=== PATIENT | female | born 1935 | race African-American/Black ===

== ENCOUNTER 2017-11-16 02:24 | Inpatient (IN) | payer MEDICARE, OTHER ==
[2017-11-16 03:15] LABS: ADD MAN DIFF? NO
[2017-11-16 03:18] LABS: BASO # 0.1 x10^3/uL (0.0-0.2); BASO % 1 % (0-3); EOS # 0.2 x10^3/uL (0.0-0.7); EOS % 2 % (0-3); HEMATOCRIT 51.2 % (36.0-47.0); LYMPH # 3.8 x10^3/uL (1.0-4.8); LYMPH % 32 % (24-48); MEAN CORPUSCULAR HEMOGLOBIN 29 pg (25-35); MEAN CORPUSCULAR HGB CONC 29 g/dL (31-37); MEAN CORPUSCULAR VOLUME 97 fL (79-100); MONO # 0.7 x10^3/uL (0.0-1.1); MONO % 6 % (0-9); NEUT # 7.1 x10^3uL (1.8-7.7); NEUT % 60 % (31-73); PLATELET COUNT 157 x10^3/uL (140-400); RED BLOOD COUNT 5.26 x10^6/uL (3.50-5.40); RED CELL DISTRIBUTION WIDTH 17.5 % (11.5-14.5); WHITE BLOOD COUNT 11.9 x10^3/uL (4.0-11.0)
[2017-11-16 03:33] LABS: ALBUMIN 2.6 g/dL (3.4-5.0); ALBUMIN/GLOBULIN RATIO 0.4 (1.0-1.7); ALK PHOS 119 U/L (46-116); ALT (SGPT) 28 U/L (14-59); ANION GAP 12 (6-14); AST (SGOT) 21 U/L (15-37); BLOOD UREA NITROGEN 80 mg/dL (7-20); BUN/CREATININE RATIO 35 (6-20); CALCIUM 8.7 mg/dL (8.5-10.1); CARBON DIOXIDE 28 mmol/L (21-32); CHLORIDE 142 mmol/L (98-107); CREATININE 2.3 mg/dL (0.6-1.0); GFR 24.5; GLUCOSE 103 mg/dL (70-99); POTASSIUM 3.8 mmol/L (3.5-5.1); TOTAL BILIRUBIN 0.4 mg/dL (0.2-1.0); TOTAL PROTEIN 8.4 g/dL (6.4-8.2)
[2017-11-16 03:37] LABS: SODIUM 182 mmol/L (136-145)
[2017-11-16] MEDS ORDERED: PIPERACILLN-TAZO 4.5GM PREMIX 100 ML IV (03:45)
[2017-11-16 03:49] LABS: BILIRUBIN,URINE NEGATIVE (NEG); CLARITY,URINE TURBID; COLOR,URINE YELLOW; GLUCOSE,URINE NEGATIVE (NEG); NITRITE,URINE NEGATIVE (NEG); PH,URINE 5.5; PROTEIN,URINE 30 mg/dL (NEG-TRACE); UROBILINOGEN,URINE 0.2 mg/dL (0.2 mg/dL)
[2017-11-16 03:58] LABS: AMORPHOUS SEDIMENT,UR PRESENT /HPF; BACTERIA,URINE 0 /HPF (0-FEW); HYALINE CASTS, URINE FEW /HPF; RBC,URINE 0 /HPF (0-2); SQUAMOUS EPITHELIAL CELL,UR OCC /LPF; WBC,URINE OCC /HPF (0-4)
[2017-11-16 03:58] LABS: NT-PRO BNP 517 pg/mL (0-449)
[2017-11-16 04:00] LABS: LACTIC ACID 1.9 mmol/L (0.4-2.0)
[2017-11-16] MEDS ORDERED: ONDANSETRON PF 4 MG/2 ML VIAL. IV (04:00)
[2017-11-16] MEDS ORDERED: fentaNYL PF VIAL 100 MCG/2 ML VIAL IV ×2 (04:00→16:45)
[2017-11-16] MEDS ORDERED: ACETAMINOPHEN 325 MG TABLET. PO ×2 (04:00→10:15)
[2017-11-16] MEDS: PIPERACILLIN/TAZO IV Push 4.5 GM VIAL. IVP (05:02)
[2017-11-16] MEDS: IV NORMAL SALINE 500ML BAG 500 ML IV (05:02)
[2017-11-16] MEDS: ACETAMINOPHEN 650 MG/20.3 ML SOLUTION. PEG (05:07)
[2017-11-16 05:15] LABS: ANISOCYTOSIS SLIGHT; PLT ESTIMATE ADEQUATE (ADEQUATE); POLYCHROMASIA SLIGHT
[2017-11-16] MEDS: IV NORMAL SALINE 1000ML BAG 1,000 ML IV (05:15)
[2017-11-16 08:25] LABS: LACTIC ACID 2.5 mmol/L (0.4-2.0)
[2017-11-16] MEDS ORDERED: DEXTROSE 50% 25 GM / 50ML DISP.SYRIN. IV (10:00)
[2017-11-16] MEDS: IV DEXTROSE 5 %-0.45 % NACL 1,000 ML IV ×2 (10:00→23:39)
[2017-11-16 10:05] LABS: ADD MAN DIFF? NO
[2017-11-16] MEDS ORDERED: cloNIDine HCL 0.1 MG TABLET PEG (10:15)
[2017-11-16 10:24] LABS: ANION GAP 14 (6-14); BLOOD UREA NITROGEN 78 mg/dL (7-20); CALCIUM 7.4 mg/dL (8.5-10.1); CARBON DIOXIDE 26 mmol/L (21-32); CHLORIDE 142 mmol/L (98-107); CREATININE 2.1 mg/dL (0.6-1.0); GFR 27.2; GLUCOSE 101 mg/dL (70-99); POTASSIUM 3.6 mmol/L (3.5-5.1)
[2017-11-16 10:28] LABS: SODIUM 182 mmol/L (136-145)
[2017-11-16 10:33] LABS: TROPONINI 0.025 ng/mL (0.000-0.055)
[2017-11-16 10:51] LABS: BASO # 0.1 x10^3/uL (0.0-0.2); BASO % 1 % (0-3); EOS # 0.1 x10^3/uL (0.0-0.7); EOS % 1 % (0-3); HEMATOCRIT 43.9 % (36.0-47.0); HEMOGLOBIN 12.9 g/dL (12.0-15.5); LYMPH % 28 % (24-48); MEAN CORPUSCULAR HEMOGLOBIN 28 pg (25-35); MEAN CORPUSCULAR HGB CONC 29 g/dL (31-37); MEAN CORPUSCULAR VOLUME 97 fL (79-100); MONO # 0.7 x10^3/uL (0.0-1.1); MONO % 6 % (0-9); NEUT % 64 % (31-73); PLATELET COUNT 134 x10^3/uL (140-400); RED BLOOD COUNT 4.54 x10^6/uL (3.50-5.40); RED CELL DISTRIBUTION WIDTH 17.4 % (11.5-14.5); WHITE BLOOD COUNT 10.9 x10^3/uL (4.0-11.0)
[2017-11-16] MEDS: IPRATRPIUM/ALBUTEROL 0.5/2.5MG 3 ML NEBU. NEB ×3 (11:34→21:09)
[2017-11-16] MEDS: INSULIN ASPART 300 UNITS/3 ML INSULN.PEN SQ ×2 (12:00→17:00)
[2017-11-16] MEDS ORDERED: PIPERACILLIN/TAZOBACTAM 3.375 GM in IV DEXTROSE 5% 50 ML IV (12:00)
[2017-11-16] MEDS: ASCORBIC ACID 500 MG TABLET PEG (12:38)
[2017-11-16] MEDS: SENNOSIDES/DOCUSATE 8.6/50MG TABLET. PO (12:39)
[2017-11-16] MEDS: amLODIPine BESYLATE 5 MG TABLET GT (12:39)
[2017-11-16] MEDS: METOPROLOL TART IMMED RELEASE 25 MG TABLET. PEG ×2 (12:40→23:36)
[2017-11-16] MEDS: PIPERACILLIN/TAZO IV Push 2.25 GM VIAL. IVP ×2 (12:40→17:57)
[2017-11-16] MEDS: VANCOMYCIN 1.5 GM in IV DEXTROSE 5 %-0.2 % NACL 500 ML IV (12:58)
[2017-11-16] MEDS: ENOXAPARIN 30 MG/0.3 ML SYRINGE. SQ (12:59)
[2017-11-16] MEDS: POLYVINYL ALCOHOL 1.4% OPHTH SOLUTION 15ML BOTTLE. OU ×3 (13:01→23:37)
[2017-11-16] MEDS: CLOTRIMAZOLE/BETAMETH 1%-0.05% TOPICAL CREAM 15GM TUBE. TP ×2 (13:02→23:37)
[2017-11-16] MEDS: MUPIROCIN 2 % TOPICAL CREAM 15GM TUBE. TP ×2 (13:02→23:37)
[2017-11-16] MEDS: hydrALAZINE 25 MG TABLET PEG ×2 (14:00→23:36)
[2017-11-16 14:06] LABS: POC GLUCOSE 85 mg/dL (70-99)
[2017-11-16 17:36] LABS: POC GLUCOSE 96 mg/dL (70-99)
[2017-11-16] MEDS: LACTOBACILLUS RHAMNOSUS GG 1 CAPSULE. PO ×2 (17:55→23:36)
[2017-11-16 19:11] LABS: MRSA BY PCR Negative (Negative)
[2017-11-16 20:59] LABS: POC GLUCOSE 154 mg/dL (70-99)
[2017-11-16] MEDS ORDERED: MUPIROCIN 2 % TOPICAL CREAM 15GM TUBE. TP (21:00)
[2017-11-16] MEDS: AMINO AC 3%/ELECTROLYTE/GLYCER 1,000 ML IV ×2 (23:30→23:41)
[2017-11-16] MEDS: LORazepam 0.5 MG TABLET GT (23:37)
[2017-11-16] MEDS: LATANOPROST 0.005% OPHTH SOLUTION 2.5ML BOTTLE. OU (23:37)
[2017-11-17] MEDS: PIPERACILLIN/TAZO IV Push 2.25 GM VIAL. IVP ×4 (01:04→19:29)
[2017-11-17] MEDS: HYDROcodone/APAP 7.5/325MG 1 TAB TABLET PO ×2 (01:05→10:47)
[2017-11-17 04:36] LABS: ADD MAN DIFF? NO
[2017-11-17 04:39] LABS: BASO # 0.1 x10^3/uL (0.0-0.2); BASO % 1 % (0-3); EOS # 0.4 x10^3/uL (0.0-0.7); EOS % 4 % (0-3); HEMATOCRIT 42.9 % (36.0-47.0); HEMOGLOBIN 12.6 g/dL (12.0-15.5); LYMPH # 1.3 x10^3/uL (1.0-4.8); LYMPH % 13 % (24-48); MEAN CORPUSCULAR HEMOGLOBIN 28 pg (25-35); MEAN CORPUSCULAR HGB CONC 29 g/dL (31-37); MEAN CORPUSCULAR VOLUME 97 fL (79-100); MONO # 0.5 x10^3/uL (0.0-1.1); MONO % 5 % (0-9); NEUT # 7.5 x10^3uL (1.8-7.7); NEUT % 77 % (31-73); PLATELET COUNT 132 x10^3/uL (140-400); RED BLOOD COUNT 4.45 x10^6/uL (3.50-5.40); WHITE BLOOD COUNT 9.7 x10^3/uL (4.0-11.0)
[2017-11-17 05:04] LABS: ANION GAP 13 (6-14); BLOOD UREA NITROGEN 60 mg/dL (7-20); CALCIUM 7.5 mg/dL (8.5-10.1); CARBON DIOXIDE 23 mmol/L (21-32); CHLORIDE 136 mmol/L (98-107); GFR 28.8; GLUCOSE 138 mg/dL (70-99); POTASSIUM 3.5 mmol/L (3.5-5.1)
[2017-11-17 05:06] LABS: SODIUM 172 mmol/L (136-145)
[2017-11-17 05:15] LABS: TROPONINI 0.023 ng/mL (0.000-0.055)
[2017-11-17 05:25] LABS: LACTIC ACID 1.8 mmol/L (0.4-2.0)
[2017-11-17] MEDS: IPRATRPIUM/ALBUTEROL 0.5/2.5MG 3 ML NEBU. NEB ×4 (07:20→19:27)
[2017-11-17] MEDS: INSULIN ASPART 300 UNITS/3 ML INSULN.PEN SQ ×3 (08:00→17:00)
[2017-11-17 08:34] LABS: POC GLUCOSE 140 mg/dL (70-99)
[2017-11-17] MEDS ORDERED: MUPIROCIN 2 % TOPICAL CREAM 15GM TUBE. TP (09:00)
[2017-11-17] MEDS: CLOTRIMAZOLE/BETAMETH 1%-0.05% TOPICAL CREAM 15GM TUBE. TP ×2 (10:25→22:35)
[2017-11-17] MEDS: MUPIROCIN 2 % TOPICAL CREAM 15GM TUBE. TP ×2 (10:26→22:35)
[2017-11-17] MEDS: LACTOBACILLUS RHAMNOSUS GG 1 CAPSULE. PO (10:29)
[2017-11-17] MEDS: fentaNYL 12MCG/HR PATCH 1 PATCH PATCH.TD72 TD (10:29)
[2017-11-17] MEDS: SENNOSIDES/DOCUSATE 8.6/50MG TABLET. PO (10:33)
[2017-11-17] MEDS: ASCORBIC ACID 500 MG TABLET PEG (10:33)
[2017-11-17] MEDS: METOPROLOL TART IMMED RELEASE 25 MG TABLET. PEG ×2 (10:34→21:00)
[2017-11-17] MEDS: amLODIPine BESYLATE 5 MG TABLET GT (10:34)
[2017-11-17] MEDS: hydrALAZINE 25 MG TABLET PEG ×3 (10:35→22:36)
[2017-11-17] MEDS: POLYVINYL ALCOHOL 1.4% OPHTH SOLUTION 15ML BOTTLE. OU ×4 (10:43→22:35)
[2017-11-17 11:38] LABS: POC GLUCOSE 111 mg/dL (70-99)
[2017-11-17] MEDS: AMINO AC 3%/ELECTROLYTE/GLYCER 1,000 ML IV (12:00)
[2017-11-17] MEDS: ENOXAPARIN 30 MG/0.3 ML SYRINGE. SQ (12:36)
[2017-11-17] MEDS: IV DEXTROSE 5 %-0.45 % NACL 1,000 ML IV (12:42)
[2017-11-17] MEDS: ACETAMINOPHEN 325 MG TABLET. PO (15:45)
[2017-11-17 16:29] LABS: POC GLUCOSE 125 mg/dL (70-99)
[2017-11-17 21:38] LABS: POC GLUCOSE 130 mg/dL (70-99)
[2017-11-17] MEDS: LATANOPROST 0.005% OPHTH SOLUTION 2.5ML BOTTLE. OU (22:35)
[2017-11-18] MEDS: PIPERACILLIN/TAZO IV Push 2.25 GM VIAL. IVP ×4 (00:35→17:36)
[2017-11-18 01:33] LABS: POC GLUCOSE 112 mg/dL (70-99)
[2017-11-18] MEDS: IV DEXTROSE 5 %-0.45 % NACL 1,000 ML IV (03:34)
[2017-11-18 06:40] LABS: POC GLUCOSE 126 mg/dL (70-99)
[2017-11-18] MEDS: INSULIN ASPART 300 UNITS/3 ML INSULN.PEN SQ ×3 (08:00→17:00)
[2017-11-18] MEDS: IPRATRPIUM/ALBUTEROL 0.5/2.5MG 3 ML NEBU. NEB ×5 (09:18→20:59)
[2017-11-18 09:24] LABS: ADD MAN DIFF? NO
[2017-11-18 09:29] LABS: BASO % 0 % (0-3); EOS # 0.4 x10^3/uL (0.0-0.7); EOS % 3 % (0-3); HEMATOCRIT 41.3 % (36.0-47.0); HEMOGLOBIN 12.2 g/dL (12.0-15.5); LYMPH # 1.6 x10^3/uL (1.0-4.8); LYMPH % 15 % (24-48); MEAN CORPUSCULAR HEMOGLOBIN 29 pg (25-35); MEAN CORPUSCULAR HGB CONC 30 g/dL (31-37); MEAN CORPUSCULAR VOLUME 97 fL (79-100); MONO # 0.7 x10^3/uL (0.0-1.1); MONO % 6 % (0-9); NEUT # 7.9 x10^3uL (1.8-7.7); NEUT % 75 % (31-73); PLATELET COUNT 119 x10^3/uL (140-400); RED BLOOD COUNT 4.24 x10^6/uL (3.50-5.40); RED CELL DISTRIBUTION WIDTH 17.4 % (11.5-14.5); WHITE BLOOD COUNT 10.5 x10^3/uL (4.0-11.0)
[2017-11-18 09:56] LABS: ANION GAP 12 (6-14); BLOOD UREA NITROGEN 41 mg/dL (7-20); CARBON DIOXIDE 22 mmol/L (21-32); CHLORIDE 134 mmol/L (98-107); CREATININE 1.6 mg/dL (0.6-1.0); GFR 37.2; GLUCOSE 148 mg/dL (70-99); POTASSIUM 3.8 mmol/L (3.5-5.1)
[2017-11-18 09:59] LABS: SODIUM 168 mmol/L (136-145)
[2017-11-18] MEDS: METOPROLOL TART IMMED RELEASE 25 MG TABLET. PEG ×2 (10:16→20:48)
[2017-11-18] MEDS: ASCORBIC ACID 500 MG TABLET PEG (10:16)
[2017-11-18] MEDS: SENNOSIDES/DOCUSATE 8.6/50MG TABLET. PO (10:17)
[2017-11-18] MEDS: hydrALAZINE 25 MG TABLET PEG ×3 (10:17→20:48)
[2017-11-18] MEDS: CLOTRIMAZOLE/BETAMETH 1%-0.05% TOPICAL CREAM 15GM TUBE. TP ×2 (10:17→20:49)
[2017-11-18] MEDS: amLODIPine BESYLATE 5 MG TABLET GT (10:17)
[2017-11-18] MEDS: POLYVINYL ALCOHOL 1.4% OPHTH SOLUTION 15ML BOTTLE. OU ×4 (10:18→20:49)
[2017-11-18] MEDS: MUPIROCIN 2 % TOPICAL CREAM 15GM TUBE. TP ×2 (10:18→20:49)
[2017-11-18] MEDS: ENOXAPARIN 30 MG/0.3 ML SYRINGE. SQ (10:19)
[2017-11-18 11:17] LABS: POC GLUCOSE 143 mg/dL (70-99)
[2017-11-18] MEDS: IV DEXTROSE 5% 1,000 ML IV (13:27)
[2017-11-18 17:09] LABS: POC GLUCOSE 126 mg/dL (70-99)
[2017-11-18] MEDS: HYDROcodone/APAP 7.5/325MG 1 TAB TABLET PO (20:48)
[2017-11-18] MEDS: LATANOPROST 0.005% OPHTH SOLUTION 2.5ML BOTTLE. OU (20:49)
[2017-11-18] MEDS: ACETAMINOPHEN 325 MG TABLET. PO (20:49)
[2017-11-19] MEDS: PIPERACILLIN/TAZO IV Push 2.25 GM VIAL. IVP ×5 (00:53→23:39)
[2017-11-19] MEDS: IV DEXTROSE 5% 1,000 ML IV ×3 (01:16→19:35)
[2017-11-19] MEDS: INSULIN ASPART 300 UNITS/3 ML INSULN.PEN SQ ×3 (08:00→17:00)
[2017-11-19] MEDS: IPRATRPIUM/ALBUTEROL 0.5/2.5MG 3 ML NEBU. NEB ×4 (08:24→18:30)
[2017-11-19 09:45] LABS: ANION GAP 10 (6-14); BLOOD UREA NITROGEN 31 mg/dL (7-20); CARBON DIOXIDE 22 mmol/L (21-32); CHLORIDE 123 mmol/L (98-107); CREATININE 1.4 mg/dL (0.6-1.0); GFR 43.5; GLUCOSE 153 mg/dL (70-99); POTASSIUM 3.6 mmol/L (3.5-5.1); SODIUM 155 mmol/L (136-145)
[2017-11-19 11:56] LABS: POC GLUCOSE 148 mg/dL (70-99)
[2017-11-19] MEDS: POLYVINYL ALCOHOL 1.4% OPHTH SOLUTION 15ML BOTTLE. OU ×4 (13:00→19:36)
[2017-11-19] MEDS: CLOTRIMAZOLE/BETAMETH 1%-0.05% TOPICAL CREAM 15GM TUBE. TP ×2 (13:43→19:36)
[2017-11-19] MEDS: MUPIROCIN 2 % TOPICAL CREAM 15GM TUBE. TP ×2 (13:43→19:36)
[2017-11-19] MEDS: ENOXAPARIN 30 MG/0.3 ML SYRINGE. SQ (13:43)
[2017-11-19] MEDS: amLODIPine BESYLATE 5 MG TABLET GT (13:44)
[2017-11-19] MEDS: ACETAMINOPHEN 325 MG TABLET. PO (13:44)
[2017-11-19] MEDS: ASCORBIC ACID 500 MG TABLET PEG (13:44)
[2017-11-19] MEDS: SENNOSIDES/DOCUSATE 8.6/50MG TABLET. PO (13:45)
[2017-11-19] MEDS: hydrALAZINE 25 MG TABLET PEG ×3 (13:47→19:35)
[2017-11-19] MEDS: METOPROLOL TART IMMED RELEASE 25 MG TABLET. PEG ×2 (13:48→19:35)
[2017-11-19 15:59] LABS: POC GLUCOSE 124 mg/dL (70-99)
[2017-11-19] MEDS: HYDROcodone/APAP 7.5/325MG 1 TAB TABLET PO (19:33)
[2017-11-19] MEDS: LATANOPROST 0.005% OPHTH SOLUTION 2.5ML BOTTLE. OU (19:35)
[2017-11-19 21:20] LABS: POC GLUCOSE 110 mg/dL (70-99)
[2017-11-20 03:20] LABS: POC GLUCOSE 87 mg/dL (70-99)
[2017-11-20] MEDS: IV DEXTROSE 5% 1,000 ML IV (05:24)
[2017-11-20] MEDS: PIPERACILLIN/TAZO IV Push 2.25 GM VIAL. IVP ×4 (05:44→23:49)
[2017-11-20] MEDS: IPRATRPIUM/ALBUTEROL 0.5/2.5MG 3 ML NEBU. NEB ×4 (06:10→19:26)
[2017-11-20] MEDS: INSULIN ASPART 300 UNITS/3 ML INSULN.PEN SQ ×3 (08:00→18:00)
[2017-11-20 08:11] LABS: ADD MAN DIFF? NO
[2017-11-20 08:16] LABS: BASO # 0.1 x10^3/uL (0.0-0.2); BASO % 1 % (0-3); EOS # 0.2 x10^3/uL (0.0-0.7); EOS % 2 % (0-3); HEMOGLOBIN 12.8 g/dL (12.0-15.5); LYMPH # 1.7 x10^3/uL (1.0-4.8); LYMPH % 16 % (24-48); MEAN CORPUSCULAR HEMOGLOBIN 29 pg (25-35); MEAN CORPUSCULAR HGB CONC 31 g/dL (31-37); MEAN CORPUSCULAR VOLUME 94 fL (79-100); MONO # 0.5 x10^3/uL (0.0-1.1); MONO % 4 % (0-9); NEUT # 8.2 x10^3uL (1.8-7.7); NEUT % 77 % (31-73); PLATELET COUNT 140 x10^3/uL (140-400); RED BLOOD COUNT 4.46 x10^6/uL (3.50-5.40); RED CELL DISTRIBUTION WIDTH 16.3 % (11.5-14.5); WHITE BLOOD COUNT 10.6 x10^3/uL (4.0-11.0)
[2017-11-20 08:55] LABS: ANION GAP 12 (6-14); BLOOD UREA NITROGEN 26 mg/dL (7-20); CALCIUM 8.2 mg/dL (8.5-10.1); CARBON DIOXIDE 22 mmol/L (21-32); CHLORIDE 119 mmol/L (98-107); CREATININE 1.3 mg/dL (0.6-1.0); GFR 47.3; GLUCOSE 145 mg/dL (70-99); POTASSIUM 3.6 mmol/L (3.5-5.1); SODIUM 153 mmol/L (136-145)
[2017-11-20] MEDS: SENNOSIDES/DOCUSATE 8.6/50MG TABLET. PO (09:00)
[2017-11-20 09:47] LABS: POC GLUCOSE 161 mg/dL (70-99)
[2017-11-20] MEDS: POTASSIUM CHLORIDE 20 MEQ TABLET.ER. PO (11:11)
[2017-11-20] MEDS: hydrALAZINE 25 MG TABLET PEG ×3 (11:12→21:56)
[2017-11-20] MEDS: ASCORBIC ACID 500 MG TABLET PEG (11:13)
[2017-11-20] MEDS: METOPROLOL TART IMMED RELEASE 25 MG TABLET. PEG ×2 (11:13→21:57)
[2017-11-20] MEDS: amLODIPine BESYLATE 5 MG TABLET GT (11:13)
[2017-11-20] MEDS: CLOTRIMAZOLE/BETAMETH 1%-0.05% TOPICAL CREAM 15GM TUBE. TP ×2 (11:14→21:56)
[2017-11-20] MEDS: fentaNYL 12MCG/HR PATCH 1 PATCH PATCH.TD72 TD (11:14)
[2017-11-20] MEDS: MUPIROCIN 2 % TOPICAL CREAM 15GM TUBE. TP ×2 (11:14→21:56)
[2017-11-20] MEDS: POLYVINYL ALCOHOL 1.4% OPHTH SOLUTION 15ML BOTTLE. OU ×4 (11:14→21:56)
[2017-11-20] MEDS: ENOXAPARIN 30 MG/0.3 ML SYRINGE. SQ (13:09)
[2017-11-20] MEDS: FUROSEMIDE 40 MG/4 ML ORAL SOLUTION. PEG (13:10)
[2017-11-20] MEDS: POTASSIUM CHLORIDE IV (17:13)
[2017-11-20] MEDS: DEXTROSE 5% IV (17:13)
[2017-11-20 18:45] LABS: POC GLUCOSE 119 mg/dL (70-99)
[2017-11-20 18:49] LABS: POC GLUCOSE 115 mg/dL (70-99)
[2017-11-20] MEDS: LATANOPROST 0.005% OPHTH SOLUTION 2.5ML BOTTLE. OU (21:56)
[2017-11-21 00:41] LABS: POC GLUCOSE 118 mg/dL (70-99)
[2017-11-21] MEDS: INSULIN ASPART 300 UNITS/3 ML INSULN.PEN SQ ×4 (01:15→18:00)
[2017-11-21 06:05] LABS: POC GLUCOSE 112 mg/dL (70-99)
[2017-11-21] MEDS: PIPERACILLIN/TAZO IV Push 2.25 GM VIAL. IVP ×3 (06:19→18:00)
[2017-11-21] MEDS: IPRATRPIUM/ALBUTEROL 0.5/2.5MG 3 ML NEBU. NEB ×3 (08:23→20:20)
[2017-11-21] MEDS: SENNOSIDES/DOCUSATE 8.6/50MG TABLET. PO (09:00)
[2017-11-21] MEDS: hydrALAZINE 25 MG TABLET PEG ×3 (09:00→21:31)
[2017-11-21 09:54] LABS: ADD MAN DIFF? NO
[2017-11-21 10:20] LABS: ANION GAP 11 (6-14); BLOOD UREA NITROGEN 24 mg/dL (7-20); CALCIUM 8.4 mg/dL (8.5-10.1); CARBON DIOXIDE 24 mmol/L (21-32); CHLORIDE 115 mmol/L (98-107); CREATININE 1.3 mg/dL (0.6-1.0); GFR 47.3; GLUCOSE 120 mg/dL (70-99); POTASSIUM 4.1 mmol/L (3.5-5.1); SODIUM 150 mmol/L (136-145)
[2017-11-21 10:48] LABS: BASO # 0.1 x10^3/uL (0.0-0.2); BASO % 1 % (0-3); EOS # 0.2 x10^3/uL (0.0-0.7); EOS % 2 % (0-3); HEMATOCRIT 39.1 % (36.0-47.0); HEMOGLOBIN 11.8 g/dL (12.0-15.5); LYMPH # 2.8 x10^3/uL (1.0-4.8); LYMPH % 34 % (24-48); MEAN CORPUSCULAR HEMOGLOBIN 28 pg (25-35); MEAN CORPUSCULAR HGB CONC 30 g/dL (31-37); MEAN CORPUSCULAR VOLUME 94 fL (79-100); MONO # 0.5 x10^3/uL (0.0-1.1); MONO % 6 % (0-9); NEUT # 4.7 x10^3uL (1.8-7.7); NEUT % 57 % (31-73); PLATELET COUNT 150 x10^3/uL (140-400); RED BLOOD COUNT 4.15 x10^6/uL (3.50-5.40); RED CELL DISTRIBUTION WIDTH 16.3 % (11.5-14.5); WHITE BLOOD COUNT 8.4 x10^3/uL (4.0-11.0)
[2017-11-21] MEDS: POLYVINYL ALCOHOL 1.4% OPHTH SOLUTION 15ML BOTTLE. OU ×4 (11:26→21:22)
[2017-11-21] MEDS: MUPIROCIN 2 % TOPICAL CREAM 15GM TUBE. TP ×2 (11:26→21:22)
[2017-11-21] MEDS: CLOTRIMAZOLE/BETAMETH 1%-0.05% TOPICAL CREAM 15GM TUBE. TP ×2 (11:26→21:22)
[2017-11-21] MEDS: amLODIPine BESYLATE 5 MG TABLET GT (11:27)
[2017-11-21] MEDS: ASCORBIC ACID 500 MG TABLET PEG (11:27)
[2017-11-21] MEDS: ENOXAPARIN 30 MG/0.3 ML SYRINGE. SQ (11:28)
[2017-11-21] MEDS: METOPROLOL TART IMMED RELEASE 25 MG TABLET. PEG ×2 (11:28→21:32)
[2017-11-21 11:49] LABS: POC GLUCOSE 123 mg/dL (70-99)
[2017-11-21 19:10] LABS: POC GLUCOSE 111 mg/dL (70-99)
[2017-11-21] MEDS: LATANOPROST 0.005% OPHTH SOLUTION 2.5ML BOTTLE. OU (21:23)
[2017-11-21] MEDS: HYDROcodone/APAP 7.5/325MG 1 TAB TABLET PO (21:31)
[2017-11-22] MEDS: PIPERACILLIN/TAZO IV Push 2.25 GM VIAL. IVP ×3 (01:39→12:00)
[2017-11-22] MEDS: INSULIN ASPART 300 UNITS/3 ML INSULN.PEN SQ ×3 (06:00→12:00)
[2017-11-22 06:23] LABS: POC GLUCOSE 94 mg/dL (70-99)
[2017-11-22 07:01] LABS: ADD MAN DIFF? NO
[2017-11-22 07:08] LABS: BASO # 0.1 x10^3/uL (0.0-0.2); BASO % 1 % (0-3); EOS # 0.2 x10^3/uL (0.0-0.7); EOS % 3 % (0-3); HEMATOCRIT 36.7 % (36.0-47.0); HEMOGLOBIN 11.3 g/dL (12.0-15.5); LYMPH # 2.3 x10^3/uL (1.0-4.8); LYMPH % 26 % (24-48); MEAN CORPUSCULAR HEMOGLOBIN 29 pg (25-35); MEAN CORPUSCULAR HGB CONC 31 g/dL (31-37); MEAN CORPUSCULAR VOLUME 94 fL (79-100); MONO # 0.6 x10^3/uL (0.0-1.1); MONO % 7 % (0-9); NEUT # 5.6 x10^3uL (1.8-7.7); NEUT % 64 % (31-73); PLATELET COUNT 159 x10^3/uL (140-400); RED BLOOD COUNT 3.91 x10^6/uL (3.50-5.40); RED CELL DISTRIBUTION WIDTH 16.1 % (11.5-14.5); WHITE BLOOD COUNT 8.8 x10^3/uL (4.0-11.0)
[2017-11-22 07:32] LABS: ANION GAP 11 (6-14); BLOOD UREA NITROGEN 25 mg/dL (7-20); CALCIUM 8.7 mg/dL (8.5-10.1); CARBON DIOXIDE 25 mmol/L (21-32); CHLORIDE 117 mmol/L (98-107); CREATININE 1.1 mg/dL (0.6-1.0); GFR 57.4; GLUCOSE 110 mg/dL (70-99); POTASSIUM 4.3 mmol/L (3.5-5.1); SODIUM 153 mmol/L (136-145)
[2017-11-22 08:05] LABS: POC GLUCOSE 96 mg/dL (70-99)
[2017-11-22] MEDS: IPRATRPIUM/ALBUTEROL 0.5/2.5MG 3 ML NEBU. NEB ×2 (08:18→11:54)
[2017-11-22 09:53] LABS: PLT ESTIMATE ADEQUATE (ADEQUATE)
[2017-11-22] MEDS: amLODIPine BESYLATE 5 MG TABLET GT (10:09)
[2017-11-22] MEDS: SENNOSIDES/DOCUSATE 8.6/50MG TABLET. PO (10:09)
[2017-11-22] MEDS: HYDROcodone/APAP 7.5/325MG 1 TAB TABLET PO (10:09)
[2017-11-22] MEDS: hydrALAZINE 25 MG TABLET PEG (10:10)
[2017-11-22] MEDS: ASCORBIC ACID 500 MG TABLET PEG (10:10)
[2017-11-22] MEDS: METOPROLOL TART IMMED RELEASE 25 MG TABLET. PEG (10:10)
[2017-11-22] MEDS: MUPIROCIN 2 % TOPICAL CREAM 15GM TUBE. TP (10:11)
[2017-11-22] MEDS: CLOTRIMAZOLE/BETAMETH 1%-0.05% TOPICAL CREAM 15GM TUBE. TP (10:11)
[2017-11-22] MEDS: POLYVINYL ALCOHOL 1.4% OPHTH SOLUTION 15ML BOTTLE. OU (10:11)
[2017-11-22] MEDS: ENOXAPARIN 30 MG/0.3 ML SYRINGE. SQ (10:13)
[2017-11-22 12:01] LABS: POC GLUCOSE 114 mg/dL (70-99)
== END 2017-11-22 13:40 | DRG 871 ==
LOC: ER 02:24 → 6 SOUTH 03:33
DX: A41.9 Sepsis, unspecified organism (principal); J69.0 Pneumonitis due to inhalation of food and vomit; J96.90 Respiratory failure, unspecified, unspecified whether with hypoxia or hypercapnia; E43 Unspecified severe protein-calorie malnutrition; G93.40 Encephalopathy, unspecified; L89.153 Pressure ulcer of sacral region, stage 3; N17.9 Acute kidney failure, unspecified; E87.0 Hyperosmolality and hypernatremia; R13.19 Other dysphagia; E03.9 Hypothyroidism, unspecified; E78.5 Hyperlipidemia, unspecified; I25.10 Atherosclerotic heart disease of native coronary artery without angina pectoris; I48.91 Unspecified atrial fibrillation; M19.90 Unspecified osteoarthritis, unspecified site; Z66 Do not resuscitate; S90.932A Unspecified superficial injury of left great toe, initial encounter; X58.XXXA Exposure to other specified factors, initial encounter; E86.0 Dehydration; F03.90 Unspecified dementia, unspecified severity, without behavioral disturbance, psychotic disturbance, mood disturbance, and anxiety; N18.3 Chronic kidney disease, stage 3 (moderate); I12.9 Hypertensive chronic kidney disease with stage 1 through stage 4 chronic kidney disease, or unspecified chronic kidney disease; Z86.73 Personal history of transient ischemic attack (TIA), and cerebral infarction without residual deficits; Z93.1 Gastrostomy status; Z89.611 Acquired absence of right leg above knee; Y93.89 Activity, other specified; Y92.89 Other specified places as the place of occurrence of the external cause; Y99.8 Other external cause status; Z90.49 Acquired absence of other specified parts of digestive tract; Z83.49 Family history of other endocrine, nutritional and metabolic diseases; Z68.29 Body mass index [BMI] 29.0-29.9, adult
CPT/HCPCS: 36415; 71045; 80048; 80053; 81001; 82962; 83605; 83880; 84484; 85025; 87040; 87641; 94640; 94760; 96374; 99285; 99285-25; J1650; J1815; J2543; J3370; J3480; J7030; J7040; J7620

== ENCOUNTER 2017-12-04 22:55 | Inpatient (IN) | payer MEDICARE, OTHER ==
[2017-12-04] MEDS: IV NORMAL SALINE 1000ML BAG 1,000 ML IV (00:55)
[2017-12-04 23:51] LABS: BASO # 0.2 x10^3/uL (0.0-0.2); BASO % 1 % (0-3); EOS % 0 % (0-3); HEMATOCRIT 44.7 % (36.0-47.0); HEMOGLOBIN 13.9 g/dL (12.0-15.5); LYMPH # 2.3 x10^3/uL (1.0-4.8); LYMPH % 13 % (24-48); MEAN CORPUSCULAR HEMOGLOBIN 30 pg (25-35); MEAN CORPUSCULAR HGB CONC 31 g/dL (31-37); MEAN CORPUSCULAR VOLUME 96 fL (79-100); MONO % 11 % (0-9); NEUT # 13.3 x10^3uL (1.8-7.7); NEUT % 75 % (31-73); PLATELET COUNT 260 x10^3/uL (140-400); RED BLOOD COUNT 4.67 x10^6/uL (3.50-5.40); RED CELL DISTRIBUTION WIDTH 17.5 % (11.5-14.5); WHITE BLOOD COUNT 17.8 x10^3/uL (4.0-11.0)
[2017-12-04 23:58] LABS: ADD MAN DIFF? YES
[2017-12-05] MEDS ORDERED: PIP/TAZO PER PHARMACY MC
[2017-12-05] MEDS ORDERED: levOFLOXacin PER PHARMACY. MC
[2017-12-05 00:04] LABS: ANION GAP 13 (6-14); BLOOD UREA NITROGEN 34 mg/dL (7-20); BUN/CREATININE RATIO 24 (6-20); CALCIUM 8.9 mg/dL (8.5-10.1); CARBON DIOXIDE 25 mmol/L (21-32); CHLORIDE 113 mmol/L (98-107); CREATININE 1.4 mg/dL (0.6-1.0); GFR 43.5; GLUCOSE 115 mg/dL (70-99); POTASSIUM 4.2 mmol/L (3.5-5.1); SODIUM 151 mmol/L (136-145)
[2017-12-05 00:08] LABS: ALBUMIN 2.6 g/dL (3.4-5.0); ALBUMIN/GLOBULIN RATIO 0.4 (1.0-1.7); ALK PHOS 157 U/L (46-116); ALT (SGPT) 33 U/L (14-59); AST (SGOT) 29 U/L (15-37); LIPASE 244 U/L (73-393); TOTAL BILIRUBIN 0.6 mg/dL (0.2-1.0); TOTAL PROTEIN 8.6 g/dL (6.4-8.2)
[2017-12-05 00:11] LABS: LACTIC ACID 3.3 mmol/L (0.4-2.0)
[2017-12-05 00:23] LABS: INFLUENZA A PATIENT NEGATIVE (NEGATIVE); INFLUENZA B PATIENT NEGATIVE (NEGATIVE); OBC FLU VALID
[2017-12-05] MEDS: IV NORMAL SALINE 1000ML BAG 1,000 ML IV ×5 (00:26→12:40)
[2017-12-05] MEDS ORDERED: ONDANSETRON PF 4 MG/2 ML VIAL. IV (00:30)
[2017-12-05] MEDS: PIPERACILLIN/TAZOBACTAM 2.25 GM in IV NORMAL SALINE 50ML 50 ML IV ×3 (00:55→12:40)
[2017-12-05 02:36] LABS: % BANDS 4 % (0-9); % LYMPHS 16 % (24-48); % METAS 1 % (0-0); % MONOS 6 % (0-10); % SEGS 73 % (35-66); ANISOCYTOSIS SLIGHT; PLT ESTIMATE ADEQUATE (ADEQUATE); TOXIC GRANULATION SLIGHT
[2017-12-05] MEDS: ACETAMINOPHEN 325 MG TABLET. PO ×3 (02:38→18:54)
[2017-12-05] MEDS: VANCOMYCIN 1.75 GM in IV DEXTROSE 5 %-0.2 % NACL 500 ML IV (02:40)
[2017-12-05 03:57] LABS: LACTIC ACID 3.9 mmol/L (0.4-2.0)
[2017-12-05] MEDS: VANCOMYCIN PER PHARMACY MC ×2 (05:24→14:55)
[2017-12-05] MEDS: IPRATRPIUM/ALBUTEROL 0.5/2.5MG 3 ML NEBU. NEB ×4 (07:57→20:21)
[2017-12-05] MEDS: LACTOBACILLUS RHAMNOSUS GG 1 CAPSULE. PO ×2 (09:06→22:41)
[2017-12-05] MEDS ORDERED: SODIUM CHLORIDE 0.65% NASAL SPRAY 45ML BOTTLE. NS (09:45)
[2017-12-05] MEDS ORDERED: cloNIDine HCL 0.1 MG TABLET PEG (09:45)
[2017-12-05] MEDS ORDERED: HYDROcodone/APAP 7.5/325MG 1 TAB TABLET PO (09:45)
[2017-12-05] MEDS ORDERED: LORazepam 0.5 MG TABLET GT (09:45)
[2017-12-05] MEDS ORDERED: IPRATRPIUM/ALBUTEROL 0.5/2.5MG 3 ML NEBU. (10:27)
[2017-12-05] MEDS: ASCORBIC ACID 500 MG TABLET PEG (12:06)
[2017-12-05] MEDS: SENNOSIDES/DOCUSATE 8.6/50MG TABLET. PO (12:07)
[2017-12-05] MEDS: METOPROLOL TART IMMED RELEASE 25 MG TABLET. PEG ×2 (12:07→22:40)
[2017-12-05] MEDS: amLODIPine BESYLATE 5 MG TABLET GT (12:08)
[2017-12-05] MEDS: ENOXAPARIN 30 MG/0.3 ML SYRINGE. SQ (12:09)
[2017-12-05] MEDS: POLYVINYL ALCOHOL 1.4% OPHTH SOLUTION 15ML BOTTLE. OU ×3 (13:00→22:41)
[2017-12-05] MEDS: hydrALAZINE 25 MG TABLET PEG ×2 (14:58→22:40)
[2017-12-05 15:24] LABS: MRSA BY PCR Positive (Negative)
[2017-12-05] MEDS: PIPERACILLIN/TAZOBACTAM 3.375 GM in IV NORMAL SALINE 50ML 50 ML IV ×2 (18:00→23:05)
[2017-12-05] MEDS: MUPIROCIN 2 % TOPICAL CREAM 15GM TUBE. TP (21:00)
[2017-12-05] MEDS: CLOTRIMAZOLE/BETAMETH 1%-0.05% TOPICAL CREAM 15GM TUBE. TP (21:00)
[2017-12-05] MEDS: LATANOPROST 0.005% OPHTH SOLUTION 2.5ML BOTTLE. OU (22:41)
[2017-12-06] MEDS: IV NORMAL SALINE 1000ML BAG 1,000 ML IV (03:58)
[2017-12-06] MEDS: VANCOMYCIN 1 GM in IV DEXTROSE 5% 250 ML IV (04:16)
[2017-12-06] MEDS: ACETAMINOPHEN 325 MG TABLET. PO (04:20)
[2017-12-06] MEDS: PIPERACILLIN/TAZOBACTAM 3.375 GM in IV NORMAL SALINE 50ML 50 ML IV ×2 (06:20→12:23)
[2017-12-06] MEDS: IPRATRPIUM/ALBUTEROL 0.5/2.5MG 3 ML NEBU. NEB ×4 (08:18→20:11)
[2017-12-06] MEDS: MUPIROCIN 2 % TOPICAL CREAM 15GM TUBE. TP ×2 (09:00→21:00)
[2017-12-06] MEDS: CLOTRIMAZOLE/BETAMETH 1%-0.05% TOPICAL CREAM 15GM TUBE. TP ×2 (09:00→21:00)
[2017-12-06 10:15] LABS: ADD MAN DIFF? NO
[2017-12-06 10:25] LABS: C DIFF BY PCR Negative (Negative)
[2017-12-06] MEDS: LACTOBACILLUS RHAMNOSUS GG 1 CAPSULE. PO ×2 (10:31→21:00)
[2017-12-06] MEDS: ASCORBIC ACID 500 MG TABLET PEG (10:31)
[2017-12-06] MEDS: amLODIPine BESYLATE 5 MG TABLET GT (10:33)
[2017-12-06] MEDS: hydrALAZINE 25 MG TABLET PEG ×3 (10:33→21:00)
[2017-12-06] MEDS: METOPROLOL TART IMMED RELEASE 25 MG TABLET. PEG ×2 (10:34→21:00)
[2017-12-06] MEDS: SENNOSIDES/DOCUSATE 8.6/50MG TABLET. PO (10:34)
[2017-12-06 10:45] LABS: ANION GAP 12 (6-14); BLOOD UREA NITROGEN 16 mg/dL (7-20); CALCIUM 8.3 mg/dL (8.5-10.1); CARBON DIOXIDE 18 mmol/L (21-32); CHLORIDE 114 mmol/L (98-107); GFR 64.1; GLUCOSE 103 mg/dL (70-99); POTASSIUM 3.5 mmol/L (3.5-5.1); SODIUM 144 mmol/L (136-145)
[2017-12-06 10:46] LABS: BASO # 0.1 x10^3/uL (0.0-0.2); BASO % 1 % (0-3); EOS # 0.2 x10^3/uL (0.0-0.7); EOS % 2 % (0-3); HEMATOCRIT 36.6 % (36.0-47.0); HEMOGLOBIN 10.9 g/dL (12.0-15.5); LYMPH # 1.4 x10^3/uL (1.0-4.8); LYMPH % 10 % (24-48); MEAN CORPUSCULAR HEMOGLOBIN 29 pg (25-35); MEAN CORPUSCULAR HGB CONC 30 g/dL (31-37); MEAN CORPUSCULAR VOLUME 96 fL (79-100); MONO # 0.9 x10^3/uL (0.0-1.1); MONO % 6 % (0-9); NEUT # 11.7 x10^3uL (1.8-7.7); NEUT % 82 % (31-73); PLATELET COUNT 185 x10^3/uL (140-400); RED BLOOD COUNT 3.81 x10^6/uL (3.50-5.40); RED CELL DISTRIBUTION WIDTH 17.1 % (11.5-14.5); WHITE BLOOD COUNT 14.2 x10^3/uL (4.0-11.0)
[2017-12-06] MEDS: ACETAMINOPHEN 650 MG/20.3 ML SOLUTION. PEG (10:49)
[2017-12-06] MEDS: ENOXAPARIN 30 MG/0.3 ML SYRINGE. SQ (10:49)
[2017-12-06] MEDS: POLYVINYL ALCOHOL 1.4% OPHTH SOLUTION 15ML BOTTLE. OU ×4 (10:50→21:00)
[2017-12-06] MEDS: VANCOMYCIN PER PHARMACY MC (14:21)
[2017-12-06 16:30] LABS: BILIRUBIN,URINE NEGATIVE (NEG); CLARITY,URINE CLEAR; COLOR,URINE YELLOW; GLUCOSE,URINE NEGATIVE (NEG); NITRITE,URINE NEGATIVE (NEG); PH,URINE 5.5; PROTEIN,URINE 30 mg/dL (NEG-TRACE); UROBILINOGEN,URINE 0.2 mg/dL (0.2 mg/dL)
[2017-12-06 17:14] LABS: RBC,URINE OCC /HPF (0-2); WBC,URINE OCC /HPF (0-4)
[2017-12-06 17:15] LABS: BACTERIA,URINE FEW /HPF (0-FEW); SQUAMOUS EPITHELIAL CELL,UR OCC /LPF
[2017-12-06] MEDS: MEROPENEM IV Push 500 MG VIAL. IVP (17:36)
[2017-12-06] MEDS ORDERED: MEROPENEM 500 MG in IV NORMAL SALINE 50ML 50 ML IV (18:00)
[2017-12-06] MEDS: LATANOPROST 0.005% OPHTH SOLUTION 2.5ML BOTTLE. OU (21:00)
[2017-12-07] MEDS: MEROPENEM IV Push 500 MG VIAL. IVP ×4 (00:52→17:51)
[2017-12-07 05:44] LABS: ADD MAN DIFF? NO
[2017-12-07 06:14] LABS: BASO # 0.1 x10^3/uL (0.0-0.2); BASO % 1 % (0-3); EOS # 0.5 x10^3/uL (0.0-0.7); EOS % 4 % (0-3); HEMATOCRIT 35.1 % (36.0-47.0); HEMOGLOBIN 10.8 g/dL (12.0-15.5); LYMPH # 1.2 x10^3/uL (1.0-4.8); LYMPH % 10 % (24-48); MEAN CORPUSCULAR HEMOGLOBIN 29 pg (25-35); MEAN CORPUSCULAR HGB CONC 31 g/dL (31-37); MEAN CORPUSCULAR VOLUME 94 fL (79-100); MONO # 0.8 x10^3/uL (0.0-1.1); MONO % 7 % (0-9); NEUT # 9.4 x10^3uL (1.8-7.7); NEUT % 79 % (31-73); RED BLOOD COUNT 3.75 x10^6/uL (3.50-5.40); RED CELL DISTRIBUTION WIDTH 16.8 % (11.5-14.5)
[2017-12-07 06:26] LABS: ANION GAP 11 (6-14); BLOOD UREA NITROGEN 14 mg/dL (7-20); CALCIUM 8.2 mg/dL (8.5-10.1); CARBON DIOXIDE 19 mmol/L (21-32); CHLORIDE 112 mmol/L (98-107); CREATININE 0.9 mg/dL (0.6-1.0); GFR 72.4; GLUCOSE 102 mg/dL (70-99); POTASSIUM 3.3 mmol/L (3.5-5.1); SODIUM 142 mmol/L (136-145)
[2017-12-07 06:41] LABS: VANC TR 14.2 mcg/mL (10.0-20.0)
[2017-12-07] MEDS: VANCOMYCIN PER PHARMACY MC (06:52)
[2017-12-07] MEDS: VANCOMYCIN 1.25 GM in IV DEXTROSE 5% 250 ML IV (07:00)
[2017-12-07] MEDS: IPRATRPIUM/ALBUTEROL 0.5/2.5MG 3 ML NEBU. NEB ×4 (07:17→20:02)
[2017-12-07 08:31] LABS: PLATELET COUNT 95 x10^3/uL (140-400)
[2017-12-07] MEDS: LACTOBACILLUS RHAMNOSUS GG 1 CAPSULE. PO ×2 (09:46→21:44)
[2017-12-07] MEDS: SENNOSIDES/DOCUSATE 8.6/50MG TABLET. PO (09:47)
[2017-12-07] MEDS: hydrALAZINE 25 MG TABLET PEG ×3 (09:48→21:45)
[2017-12-07] MEDS: METOPROLOL TART IMMED RELEASE 25 MG TABLET. PEG ×2 (09:49→21:44)
[2017-12-07] MEDS: ASCORBIC ACID 500 MG TABLET PEG (09:49)
[2017-12-07] MEDS: amLODIPine BESYLATE 5 MG TABLET GT (09:50)
[2017-12-07] MEDS: POLYVINYL ALCOHOL 1.4% OPHTH SOLUTION 15ML BOTTLE. OU ×4 (09:51→21:00)
[2017-12-07] MEDS: MUPIROCIN 2 % TOPICAL CREAM 15GM TUBE. TP ×2 (09:51→22:06)
[2017-12-07] MEDS: CLOTRIMAZOLE/BETAMETH 1%-0.05% TOPICAL CREAM 15GM TUBE. TP ×2 (09:51→22:06)
[2017-12-07] MEDS: POTASSIUM CHLORIDE 20 MEQ/15 ML ORAL LIQUID. PEG ×3 (10:29→21:45)
[2017-12-07] MEDS: ENOXAPARIN 40 MG/0.4 ML SYRINGE. SQ (13:51)
[2017-12-07] MEDS: LATANOPROST 0.005% OPHTH SOLUTION 2.5ML BOTTLE. OU (21:50)
[2017-12-08] MEDS: MEROPENEM IV Push 500 MG VIAL. IVP ×3 (00:56→12:00)
[2017-12-08 05:39] LABS: ADD MAN DIFF? NO
[2017-12-08 05:49] LABS: BASO # 0.1 x10^3/uL (0.0-0.2); BASO % 1 % (0-3); EOS # 0.3 x10^3/uL (0.0-0.7); EOS % 4 % (0-3); HEMATOCRIT 34.6 % (36.0-47.0); HEMOGLOBIN 10.8 g/dL (12.0-15.5); LYMPH # 1.4 x10^3/uL (1.0-4.8); LYMPH % 20 % (24-48); MEAN CORPUSCULAR HEMOGLOBIN 29 pg (25-35); MEAN CORPUSCULAR HGB CONC 31 g/dL (31-37); MEAN CORPUSCULAR VOLUME 93 fL (79-100); MONO # 0.7 x10^3/uL (0.0-1.1); MONO % 9 % (0-9); NEUT # 4.9 x10^3uL (1.8-7.7); NEUT % 67 % (31-73); PLATELET COUNT 251 x10^3/uL (140-400); RED BLOOD COUNT 3.74 x10^6/uL (3.50-5.40); RED CELL DISTRIBUTION WIDTH 16.4 % (11.5-14.5); WHITE BLOOD COUNT 7.3 x10^3/uL (4.0-11.0)
[2017-12-08 06:32] LABS: ANION GAP 12 (6-14); BLOOD UREA NITROGEN 13 mg/dL (7-20); CALCIUM 8.9 mg/dL (8.5-10.1); CARBON DIOXIDE 23 mmol/L (21-32); CHLORIDE 110 mmol/L (98-107); CREATININE 0.9 mg/dL (0.6-1.0); GFR 72.4; GLUCOSE 102 mg/dL (70-99); POTASSIUM 4.3 mmol/L (3.5-5.1); SODIUM 145 mmol/L (136-145)
[2017-12-08] MEDS: IPRATRPIUM/ALBUTEROL 0.5/2.5MG 3 ML NEBU. NEB ×4 (07:25→20:02)
[2017-12-08] MEDS: MUPIROCIN 2 % TOPICAL CREAM 15GM TUBE. TP (09:00)
[2017-12-08] MEDS: SENNOSIDES/DOCUSATE 8.6/50MG TABLET. PO (09:53)
[2017-12-08] MEDS: ASCORBIC ACID 500 MG TABLET PEG (09:53)
[2017-12-08] MEDS: amLODIPine BESYLATE 5 MG TABLET GT (09:54)
[2017-12-08] MEDS: hydrALAZINE 25 MG TABLET PEG ×3 (09:55→20:36)
[2017-12-08] MEDS: METOPROLOL TART IMMED RELEASE 25 MG TABLET. PEG ×2 (09:55→20:36)
[2017-12-08] MEDS: LACTOBACILLUS RHAMNOSUS GG 1 CAPSULE. PO ×2 (09:56→20:32)
[2017-12-08] MEDS: CLOTRIMAZOLE/BETAMETH 1%-0.05% TOPICAL CREAM 15GM TUBE. TP ×2 (09:56→20:31)
[2017-12-08] MEDS: LATANOPROST 0.005% OPHTH SOLUTION 2.5ML BOTTLE. OU (09:56)
[2017-12-08] MEDS: POTASSIUM CHLORIDE 20 MEQ/15 ML ORAL LIQUID. PEG ×2 (09:56→20:32)
[2017-12-08] MEDS: POLYVINYL ALCOHOL 1.4% OPHTH SOLUTION 15ML BOTTLE. OU ×4 (09:56→21:00)
[2017-12-08] MEDS: ENOXAPARIN 40 MG/0.4 ML SYRINGE. SQ (13:23)
[2017-12-09] MEDS: MUPIROCIN 2 % TOPICAL CREAM 15GM TUBE. TP ×2 (06:33→08:28)
[2017-12-09] MEDS: IPRATRPIUM/ALBUTEROL 0.5/2.5MG 3 ML NEBU. NEB ×2 (07:28→11:21)
[2017-12-09] MEDS: LACTOBACILLUS RHAMNOSUS GG 1 CAPSULE. PO (08:26)
[2017-12-09] MEDS: hydrALAZINE 25 MG TABLET PEG (08:26)
[2017-12-09] MEDS: ASCORBIC ACID 500 MG TABLET PEG (08:27)
[2017-12-09] MEDS: POTASSIUM CHLORIDE 20 MEQ/15 ML ORAL LIQUID. PEG (08:27)
[2017-12-09] MEDS: METOPROLOL TART IMMED RELEASE 25 MG TABLET. PEG (08:27)
[2017-12-09] MEDS: amLODIPine BESYLATE 5 MG TABLET GT (08:27)
[2017-12-09] MEDS: CLOTRIMAZOLE/BETAMETH 1%-0.05% TOPICAL CREAM 15GM TUBE. TP (08:28)
[2017-12-09] MEDS: POLYVINYL ALCOHOL 1.4% OPHTH SOLUTION 15ML BOTTLE. OU (08:28)
[2017-12-09] MEDS: SENNOSIDES/DOCUSATE 8.6/50MG TABLET. PO (09:00)
== END 2017-12-09 13:45 | disposition home or self-care (01) | DRG 871 ==
LOC: 5 SOUTH 12-05 00:38 → ER 22:55
DX: A41.9 Sepsis, unspecified organism (principal); J18.9 Pneumonia, unspecified organism; E43 Unspecified severe protein-calorie malnutrition; R40.3 Persistent vegetative state; I27.20 Pulmonary hypertension, unspecified; E87.0 Hyperosmolality and hypernatremia; M32.9 Systemic lupus erythematosus, unspecified; I48.91 Unspecified atrial fibrillation; I69.359 Hemiplegia and hemiparesis following cerebral infarction affecting unspecified side; R65.20 Severe sepsis without septic shock; R13.10 Dysphagia, unspecified; Y95 Nosocomial condition; N18.9 Chronic kidney disease, unspecified; E86.0 Dehydration; H35.30 Unspecified macular degeneration; K21.9 Gastro-esophageal reflux disease without esophagitis; L89.620 Pressure ulcer of left heel, unstageable; H40.9 Unspecified glaucoma; L97.529 Non-pressure chronic ulcer of other part of left foot with unspecified severity; F03.90 Unspecified dementia, unspecified severity, without behavioral disturbance, psychotic disturbance, mood disturbance, and anxiety; E78.00 Pure hypercholesterolemia, unspecified; D64.9 Anemia, unspecified; K59.00 Constipation, unspecified; K80.20 Calculus of gallbladder without cholecystitis without obstruction; I70.202 Unspecified atherosclerosis of native arteries of extremities, left leg; M19.90 Unspecified osteoarthritis, unspecified site; E78.5 Hyperlipidemia, unspecified; I25.10 Atherosclerotic heart disease of native coronary artery without angina pectoris; I12.9 Hypertensive chronic kidney disease with stage 1 through stage 4 chronic kidney disease, or unspecified chronic kidney disease; E03.9 Hypothyroidism, unspecified; Z82.49 Family history of ischemic heart disease and other diseases of the circulatory system; Z74.01 Bed confinement status; Z68.29 Body mass index [BMI] 29.0-29.9, adult; Z89.611 Acquired absence of right leg above knee; Z86.14 Personal history of Methicillin resistant Staphylococcus aureus infection; Z82.3 Family history of stroke; Z83.49 Family history of other endocrine, nutritional and metabolic diseases; I69.320 Aphasia following cerebral infarction; Z87.440 Personal history of urinary (tract) infections
CPT/HCPCS: 36415; 71045; 73620; 80048; 80053; 80202; 81001; 83605; 83690; 85007; 85025; 87040; 87086; 87324; 87641; 87804; 87804-59; 93005; 94640; 96365; 96367; 99285; 99285-25; J1650; J1956; J2185; J2543; J3370; J7030; J7620

== ENCOUNTER 2017-12-23 03:25 | Inpatient (IN) | payer MEDICARE, OTHER ==
[2017-12-23 03:52] LABS: BASE EXCESS ABG 1 mmol/L (-3-3); HCO3 ABG 24 mmol/L (21-28); PCO2 ABG 33 mmHg (35-46); PH ABG 7.48 (7.35-7.45); PO2 ABG 118 mmHg (65-108); SAT O2 ABG 98 % (92-99)
[2017-12-23] MEDS: ALBUTEROL SULFATE 2.5 MG/3 ML NEBU. CONT NEB (03:57)
[2017-12-23] MEDS: IPRATROPIUM BROMIDE 0.5 MG/2.5 ML NEBU. NEB (03:57)
[2017-12-23 04:03] LABS: ADD MAN DIFF? NO
[2017-12-23 04:08] LABS: BASO # 0.1 x10^3/uL (0.0-0.2); BASO % 1 % (0-3); EOS # 0.2 x10^3/uL (0.0-0.7); EOS % 2 % (0-3); HEMATOCRIT 38.8 % (36.0-47.0); HEMOGLOBIN 12.3 g/dL (12.0-15.5); LYMPH # 2.7 x10^3/uL (1.0-4.8); LYMPH % 24 % (24-48); MEAN CORPUSCULAR HEMOGLOBIN 29 pg (25-35); MEAN CORPUSCULAR HGB CONC 32 g/dL (31-37); MEAN CORPUSCULAR VOLUME 91 fL (79-100); MONO % 9 % (0-9); NEUT # 7.4 x10^3uL (1.8-7.7); NEUT % 65 % (31-73); PLATELET COUNT 418 x10^3/uL (140-400); RED BLOOD COUNT 4.25 x10^6/uL (3.50-5.40); WHITE BLOOD COUNT 11.4 x10^3/uL (4.0-11.0)
[2017-12-23 04:18] LABS: ANION GAP 13 (6-14); BLOOD UREA NITROGEN 31 mg/dL (7-20); BUN/CREATININE RATIO 28 (6-20); CALCIUM 8.8 mg/dL (8.5-10.1); CARBON DIOXIDE 27 mmol/L (21-32); CHLORIDE 114 mmol/L (98-107); CREATININE 1.1 mg/dL (0.6-1.0); GFR 57.4; GLUCOSE 111 mg/dL (70-99); POTASSIUM 4.9 mmol/L (3.5-5.1); SODIUM 154 mmol/L (136-145)
[2017-12-23 04:20] LABS: INR 1.1 (0.8-1.1); PROTHROMBIN TIME PATIENT 13.9 SEC (11.7-14.0)
[2017-12-23 04:24] LABS: ALBUMIN 2.6 g/dL (3.4-5.0); ALBUMIN/GLOBULIN RATIO 0.5 (1.0-1.7); ALK PHOS 140 U/L (46-116); ALT (SGPT) 22 U/L (14-59); AST (SGOT) 21 U/L (15-37); TOTAL BILIRUBIN 0.2 mg/dL (0.2-1.0); TOTAL PROTEIN 8.3 g/dL (6.4-8.2)
[2017-12-23 04:26] LABS: LACTIC ACID 2.9 mmol/L (0.4-2.0)
[2017-12-23 04:29] LABS: NT-PRO BNP 375 pg/mL (0-449)
[2017-12-23] MEDS ORDERED: PIP/TAZO PER PHARMACY MC (04:30)
[2017-12-23] MEDS ORDERED: VANCOMYCIN 1 GM in IV DEXTROSE 5% 250 ML IV (04:30)
[2017-12-23 04:33] LABS: TROPONINI < 0.017 ng/mL (0.000-0.055)
[2017-12-23] MEDS ORDERED: ONDANSETRON PF 4 MG/2 ML VIAL. IV (04:45)
[2017-12-23 04:46] LABS: BILIRUBIN,URINE NEGATIVE (NEG); CLARITY,URINE CLEAR; COLOR,URINE YELLOW; GLUCOSE,URINE NEGATIVE (NEG); NITRITE,URINE NEGATIVE (NEG); PH,URINE 6.5; PROTEIN,URINE 30 mg/dL (NEG-TRACE); UROBILINOGEN,URINE 0.2 mg/dL (0.2 mg/dL)
[2017-12-23] MEDS: PIPERACILLIN/TAZOBACTAM 2.25 GM in IV NORMAL SALINE 50ML 50 ML IV (04:51)
[2017-12-23] MEDS: IV NORMAL SALINE 1000ML BAG 1,000 ML IV ×3 (04:51→06:26)
[2017-12-23 04:57] LABS: BACTERIA,URINE 0 /HPF (0-FEW); RBC,URINE OCC /HPF (0-2); WBC,URINE TNTC /HPF (0-4)
[2017-12-23 04:58] LABS: SQUAMOUS EPITHELIAL CELL,UR FEW /LPF
[2017-12-23] MEDS: VANCOMYCIN PER PHARMACY MC ×2 (05:53→06:18)
[2017-12-23] MEDS ORDERED: MEROPENEM 1 GM in IV NORMAL SALINE 100ML 100 ML IV (06:00)
[2017-12-23] MEDS: VANCOMYCIN 1.75 GM in IV DEXTROSE 5 %-0.45 % NACL 500 ML IV (06:19)
[2017-12-23] MEDS: IPRATRPIUM/ALBUTEROL 0.5/2.5MG 3 ML NEBU. NEB ×4 (08:21→20:00)
[2017-12-23] MEDS ORDERED: LIDOCAINE WITH 8.4% SOD BICARB 3 ML DISP.SYRIN. ×2 (08:39→11:09)
[2017-12-23] MEDS: MICAFUNGIN 100 MG in IV DEXTROSE 5% 100 ML IV (09:44)
[2017-12-23] MEDS: IV DEXTROSE 5% 1,000 ML IV ×2 (09:47→17:14)
[2017-12-23] MEDS ORDERED: SODIUM CHLORIDE 0.65% NASAL SPRAY 45ML BOTTLE. NS (10:15)
[2017-12-23] MEDS: LIDOCAINE WITH 8.4% SOD BICARB 3 ML DISP.SYRIN. INJ ×2 (10:19→11:37)
[2017-12-23] MEDS: CLOTRIMAZOLE/BETAMETH 1%-0.05% TOPICAL CREAM 15GM TUBE. TP ×2 (11:00→20:41)
[2017-12-23] MEDS ORDERED: PIPERACILLIN/TAZOBACTAM 2.25 GM in IV NORMAL SALINE 50ML 50 ML IV (12:00)
[2017-12-23] MEDS: ACETAMINOPHEN 325 MG TABLET. PO (13:00)
[2017-12-23] MEDS: MEROPENEM IV Push 1 GM VIAL. IVP ×2 (13:00→20:42)
[2017-12-23] MEDS: ENOXAPARIN 40 MG/0.4 ML SYRINGE. SQ (13:00)
[2017-12-23] MEDS: LINEZOLID 600 MG TABLET PEG ×2 (13:00→20:42)
[2017-12-23] MEDS: SENNOSIDES/DOCUSATE 8.6/50MG TABLET. PO (13:01)
[2017-12-23] MEDS: HYDROcodone/APAP 7.5/325MG 1 TAB TABLET PO ×2 (13:01→20:44)
[2017-12-23] MEDS: amLODIPine BESYLATE 5 MG TABLET GT (13:02)
[2017-12-23] MEDS: POTASSIUM CHLORIDE 20 MEQ/15 ML ORAL LIQUID. PEG (13:02)
[2017-12-23] MEDS: ASCORBIC ACID 500 MG TABLET PEG (13:02)
[2017-12-23] MEDS: LACTOBACILLUS RHAMNOSUS GG 1 CAPSULE. PO ×2 (13:02→20:43)
[2017-12-23] MEDS: LORazepam 0.5 MG TABLET GT ×2 (13:02→20:42)
[2017-12-23] MEDS: MULTIVITAMINS,THERAPEUTIC 5 ML ORAL LIQUID. PEG (13:02)
[2017-12-23 13:03] LABS: INFLUENZA A PATIENT NEGATIVE (NEGATIVE); INFLUENZA B PATIENT NEGATIVE (NEGATIVE); OBC FLU VALID
[2017-12-23] MEDS: MUPIROCIN 2 % TOPICAL CREAM 15GM TUBE. TP ×2 (13:03→20:40)
[2017-12-23] MEDS: METOPROLOL TART IMMED RELEASE 25 MG TABLET. PEG ×2 (13:03→20:45)
[2017-12-23] MEDS: POLYVINYL ALCOHOL 1.4% OPHTH SOLUTION 15ML BOTTLE. OU ×3 (13:04→20:40)
[2017-12-23] MEDS: hydrALAZINE 25 MG TABLET PEG ×2 (15:39→20:42)
[2017-12-23 17:28] LABS: POC GLUCOSE 89 mg/dL (70-99)
[2017-12-23 20:18] LABS: MRSA BY PCR Positive (Negative)
[2017-12-23] MEDS: LATANOPROST 0.005% OPHTH SOLUTION 2.5ML BOTTLE. OU (20:41)
[2017-12-23 20:55] LABS: POC GLUCOSE 101 mg/dL (70-99)
[2017-12-24] MEDS: IV DEXTROSE 5% 1,000 ML IV ×4 (00:18→22:08)
[2017-12-24] MEDS ORDERED: VANCOMYCIN 1 GM in IV 1/2 NORMAL SALINE 250 ML IV (06:30)
[2017-12-24] MEDS: IPRATRPIUM/ALBUTEROL 0.5/2.5MG 3 ML NEBU. NEB ×4 (07:24→21:09)
[2017-12-24 07:45] LABS: POC GLUCOSE 101 mg/dL (70-99)
[2017-12-24] MEDS ORDERED: NON FORMULARY ITEM (Lactobacillus Acidophilus (Probiotic) 1 EACH) GT (09:00)
[2017-12-24] MEDS: CLOTRIMAZOLE/BETAMETH 1%-0.05% TOPICAL CREAM 15GM TUBE. TP ×2 (09:00→22:11)
[2017-12-24] MEDS: MEROPENEM IV Push 1 GM VIAL. IVP ×2 (09:51→20:41)
[2017-12-24] MEDS: LACTOBACILLUS RHAMNOSUS GG 1 CAPSULE. PO ×2 (09:52→20:39)
[2017-12-24] MEDS: POTASSIUM CHLORIDE 20 MEQ/15 ML ORAL LIQUID. PEG (09:52)
[2017-12-24] MEDS: MULTIVITAMINS,THERAPEUTIC 5 ML ORAL LIQUID. PEG (09:53)
[2017-12-24] MEDS: ASCORBIC ACID 500 MG TABLET PEG (09:53)
[2017-12-24] MEDS: METOPROLOL TART IMMED RELEASE 25 MG TABLET. PEG ×2 (09:53→20:40)
[2017-12-24] MEDS: LINEZOLID 600 MG TABLET PEG ×2 (09:53→20:39)
[2017-12-24] MEDS: SENNOSIDES/DOCUSATE 8.6/50MG TABLET. PO (09:54)
[2017-12-24] MEDS: hydrALAZINE 25 MG TABLET PEG ×3 (09:54→20:40)
[2017-12-24] MEDS: amLODIPine BESYLATE 5 MG TABLET GT (09:54)
[2017-12-24] MEDS: MUPIROCIN 2 % TOPICAL CREAM 15GM TUBE. TP ×2 (09:55→22:10)
[2017-12-24] MEDS: MICAFUNGIN 100 MG in IV DEXTROSE 5% 100 ML IV (09:56)
[2017-12-24] MEDS: POLYVINYL ALCOHOL 1.4% OPHTH SOLUTION 15ML BOTTLE. OU ×4 (09:56→20:26)
[2017-12-24 11:15] LABS: POC GLUCOSE 108 mg/dL (70-99)
[2017-12-24] MEDS: BUDESONIDE 0.5 MG/2 ML NEBU. NEB ×2 (11:19→21:09)
[2017-12-24] MEDS: ENOXAPARIN 40 MG/0.4 ML SYRINGE. SQ (12:31)
[2017-12-24 12:55] LABS: ADD MAN DIFF? NO
[2017-12-24 13:03] LABS: BASO % 1 % (0-3); EOS # 0.3 x10^3/uL (0.0-0.7); EOS % 4 % (0-3); HEMATOCRIT 32.5 % (36.0-47.0); HEMOGLOBIN 10.3 g/dL (12.0-15.5); LYMPH # 0.9 x10^3/uL (1.0-4.8); LYMPH % 10 % (24-48); MEAN CORPUSCULAR HEMOGLOBIN 29 pg (25-35); MEAN CORPUSCULAR HGB CONC 32 g/dL (31-37); MEAN CORPUSCULAR VOLUME 91 fL (79-100); MONO # 0.7 x10^3/uL (0.0-1.1); MONO % 8 % (0-9); NEUT % 77 % (31-73); PLATELET COUNT 281 x10^3/uL (140-400); RED BLOOD COUNT 3.58 x10^6/uL (3.50-5.40); RED CELL DISTRIBUTION WIDTH 16.1 % (11.5-14.5)
[2017-12-24 13:08] LABS: ANION GAP 7 (6-14); BLOOD UREA NITROGEN 15 mg/dL (7-20); CALCIUM 8.5 mg/dL (8.5-10.1); CARBON DIOXIDE 25 mmol/L (21-32); CHLORIDE 103 mmol/L (98-107); CREATININE 0.8 mg/dL (0.6-1.0); GFR 82.9; GLUCOSE 117 mg/dL (70-99); POTASSIUM 4.2 mmol/L (3.5-5.1); SODIUM 135 mmol/L (136-145)
[2017-12-24] MEDS: LATANOPROST 0.005% OPHTH SOLUTION 2.5ML BOTTLE. OU (20:38)
[2017-12-24 21:09] LABS: POC GLUCOSE 104 mg/dL (70-99)
[2017-12-25 03:10] LABS: ADD MAN DIFF? NO
[2017-12-25 03:34] LABS: ANION GAP 10 (6-14); BLOOD UREA NITROGEN 13 mg/dL (7-20); CALCIUM 8.4 mg/dL (8.5-10.1); CARBON DIOXIDE 25 mmol/L (21-32); CHLORIDE 99 mmol/L (98-107); CREATININE 0.9 mg/dL (0.6-1.0); GFR 72.4; GLUCOSE 128 mg/dL (70-99); POTASSIUM 3.6 mmol/L (3.5-5.1); SODIUM 134 mmol/L (136-145)
[2017-12-25 04:24] LABS: BASO % 1 % (0-3); EOS # 0.2 x10^3/uL (0.0-0.7); EOS % 3 % (0-3); HEMATOCRIT 31.9 % (36.0-47.0); HEMOGLOBIN 10.1 g/dL (12.0-15.5); LYMPH # 1.1 x10^3/uL (1.0-4.8); LYMPH % 14 % (24-48); MEAN CORPUSCULAR HEMOGLOBIN 28 pg (25-35); MEAN CORPUSCULAR HGB CONC 32 g/dL (31-37); MEAN CORPUSCULAR VOLUME 90 fL (79-100); MONO # 0.7 x10^3/uL (0.0-1.1); MONO % 9 % (0-9); NEUT # 5.9 x10^3uL (1.8-7.7); NEUT % 74 % (31-73); PLATELET COUNT 278 x10^3/uL (140-400); RED BLOOD COUNT 3.56 x10^6/uL (3.50-5.40); RED CELL DISTRIBUTION WIDTH 15.6 % (11.5-14.5); WHITE BLOOD COUNT 7.9 x10^3/uL (4.0-11.0)
[2017-12-25] MEDS: IV DEXTROSE 5% 1,000 ML IV ×3 (04:29→12:25)
[2017-12-25] MEDS: BUDESONIDE 0.5 MG/2 ML NEBU. NEB ×2 (07:56→20:00)
[2017-12-25] MEDS: IPRATRPIUM/ALBUTEROL 0.5/2.5MG 3 ML NEBU. NEB ×4 (07:56→20:00)
[2017-12-25] MEDS: CLOTRIMAZOLE/BETAMETH 1%-0.05% TOPICAL CREAM 15GM TUBE. TP ×2 (09:00→21:00)
[2017-12-25] MEDS: SENNOSIDES/DOCUSATE 8.6/50MG TABLET. PO (09:00)
[2017-12-25] MEDS: MEROPENEM IV Push 1 GM VIAL. IVP ×2 (09:42→20:42)
[2017-12-25] MEDS: MICAFUNGIN 100 MG in IV DEXTROSE 5% 100 ML IV (09:43)
[2017-12-25] MEDS: LACTOBACILLUS RHAMNOSUS GG 1 CAPSULE. PO ×2 (09:44→20:42)
[2017-12-25] MEDS: ASCORBIC ACID 500 MG TABLET PEG (09:45)
[2017-12-25] MEDS: LINEZOLID 600 MG TABLET PEG ×2 (09:45→20:42)
[2017-12-25] MEDS: amLODIPine BESYLATE 5 MG TABLET GT (09:45)
[2017-12-25] MEDS: POTASSIUM CHLORIDE 20 MEQ/15 ML ORAL LIQUID. PEG (09:45)
[2017-12-25] MEDS: hydrALAZINE 25 MG TABLET PEG ×3 (09:46→20:43)
[2017-12-25] MEDS: MULTIVITAMINS,THERAPEUTIC 5 ML ORAL LIQUID. PEG (09:46)
[2017-12-25] MEDS: METOPROLOL TART IMMED RELEASE 25 MG TABLET. PEG ×2 (09:46→20:44)
[2017-12-25] MEDS: MUPIROCIN 2 % TOPICAL CREAM 15GM TUBE. TP ×2 (09:47→20:45)
[2017-12-25] MEDS: POLYVINYL ALCOHOL 1.4% OPHTH SOLUTION 15ML BOTTLE. OU ×4 (09:47→20:46)
[2017-12-25 11:41] LABS: POC GLUCOSE 119 mg/dL (70-99)
[2017-12-25] MEDS: ENOXAPARIN 40 MG/0.4 ML SYRINGE. SQ (12:25)
[2017-12-25] MEDS: LORazepam 0.5 MG TABLET GT (20:42)
[2017-12-25] MEDS: LATANOPROST 0.005% OPHTH SOLUTION 2.5ML BOTTLE. OU (20:46)
[2017-12-25 21:02] LABS: POC GLUCOSE 109 mg/dL (70-99)
[2017-12-26 07:07] LABS: POC GLUCOSE 82 mg/dL (70-99)
[2017-12-26] MEDS: IPRATRPIUM/ALBUTEROL 0.5/2.5MG 3 ML NEBU. NEB ×4 (07:42→18:26)
[2017-12-26] MEDS: BUDESONIDE 0.5 MG/2 ML NEBU. NEB ×2 (07:42→18:26)
[2017-12-26] MEDS: POLYVINYL ALCOHOL 1.4% OPHTH SOLUTION 15ML BOTTLE. OU ×3 (09:00→20:49)
[2017-12-26] MEDS: CLOTRIMAZOLE/BETAMETH 1%-0.05% TOPICAL CREAM 15GM TUBE. TP ×3 (09:00→21:00)
[2017-12-26] MEDS: MULTIVITAMINS,THERAPEUTIC 5 ML ORAL LIQUID. PEG (09:43)
[2017-12-26] MEDS: METOPROLOL TART IMMED RELEASE 25 MG TABLET. PEG ×2 (09:44→20:53)
[2017-12-26] MEDS: LACTOBACILLUS RHAMNOSUS GG 1 CAPSULE. PO ×2 (09:44→23:45)
[2017-12-26] MEDS: SENNOSIDES/DOCUSATE 8.6/50MG TABLET. PO (09:44)
[2017-12-26] MEDS: LINEZOLID 600 MG TABLET PEG ×2 (09:45→20:52)
[2017-12-26] MEDS: amLODIPine BESYLATE 5 MG TABLET GT (09:45)
[2017-12-26] MEDS: hydrALAZINE 25 MG TABLET PEG ×3 (09:45→20:53)
[2017-12-26] MEDS: ASCORBIC ACID 500 MG TABLET PEG (09:46)
[2017-12-26] MEDS: POTASSIUM CHLORIDE 20 MEQ/15 ML ORAL LIQUID. PEG (09:46)
[2017-12-26] MEDS: MEROPENEM IV Push 1 GM VIAL. IVP ×2 (09:47→20:51)
[2017-12-26] MEDS: MICAFUNGIN 100 MG in IV DEXTROSE 5% 100 ML IV (09:48)
[2017-12-26] MEDS: MUPIROCIN 2 % TOPICAL CREAM 15GM TUBE. TP ×3 (10:02→21:00)
[2017-12-26 12:36] LABS: POC GLUCOSE 85 mg/dL (70-99)
[2017-12-26] MEDS: ENOXAPARIN 40 MG/0.4 ML SYRINGE. SQ (12:59)
[2017-12-26 19:01] LABS: POC GLUCOSE 90 mg/dL (70-99)
[2017-12-26] MEDS: LATANOPROST 0.005% OPHTH SOLUTION 2.5ML BOTTLE. OU (20:49)
[2017-12-27 01:09] LABS: POC GLUCOSE 93 mg/dL (70-99)
[2017-12-27 06:11] LABS: POC GLUCOSE 99 mg/dL (70-99)
[2017-12-27] MEDS: BUDESONIDE 0.5 MG/2 ML NEBU. NEB ×2 (07:32→18:17)
[2017-12-27] MEDS: IPRATRPIUM/ALBUTEROL 0.5/2.5MG 3 ML NEBU. NEB ×4 (07:32→18:17)
[2017-12-27] MEDS: MUPIROCIN 2 % TOPICAL CREAM 15GM TUBE. TP ×2 (09:00→21:00)
[2017-12-27] MEDS: CLOTRIMAZOLE/BETAMETH 1%-0.05% TOPICAL CREAM 15GM TUBE. TP ×2 (09:00→21:00)
[2017-12-27] MEDS: ASCORBIC ACID 500 MG TABLET PEG (09:49)
[2017-12-27] MEDS: SENNOSIDES/DOCUSATE 8.6/50MG TABLET. PO (09:49)
[2017-12-27] MEDS: METOPROLOL TART IMMED RELEASE 25 MG TABLET. PEG ×2 (09:49→21:09)
[2017-12-27] MEDS: amLODIPine BESYLATE 5 MG TABLET GT (09:50)
[2017-12-27] MEDS: hydrALAZINE 25 MG TABLET PEG ×3 (09:50→21:09)
[2017-12-27] MEDS: LINEZOLID 600 MG TABLET PEG (09:50)
[2017-12-27] MEDS: MULTIVITAMINS,THERAPEUTIC 5 ML ORAL LIQUID. PEG (09:51)
[2017-12-27] MEDS: MEROPENEM IV Push 1 GM VIAL. IVP (09:52)
[2017-12-27] MEDS: POLYVINYL ALCOHOL 1.4% OPHTH SOLUTION 15ML BOTTLE. OU ×4 (09:52→21:00)
[2017-12-27] MEDS: POTASSIUM CHLORIDE 20 MEQ/15 ML ORAL LIQUID. PEG (09:52)
[2017-12-27] MEDS: ENOXAPARIN 40 MG/0.4 ML SYRINGE. SQ ×2 (13:57→21:15)
[2017-12-27] MEDS: LACTOBACILLUS RHAMNOSUS GG 1 CAPSULE. PO ×2 (13:57→21:09)
[2017-12-27 14:41] LABS: POC GLUCOSE 104 mg/dL (70-99)
[2017-12-27] MEDS: LATANOPROST 0.005% OPHTH SOLUTION 2.5ML BOTTLE. OU (21:00)
[2017-12-27] MEDS: AMOXICILLIN/K CLAV 875/125MG TABLET. PO (21:08)
[2017-12-27] MEDS: DOXYCYCLINE HYCLATE 100 MG TABLET PO (21:08)
[2017-12-28 01:15] LABS: POC GLUCOSE 93 mg/dL (70-99)
[2017-12-28 05:22] LABS: POC GLUCOSE 85 mg/dL (70-99)
[2017-12-28 05:37] LABS: ADD MAN DIFF? NO
[2017-12-28 06:05] LABS: BASO # 0.1 x10^3/uL (0.0-0.2); BASO % 1 % (0-3); EOS # 0.3 x10^3/uL (0.0-0.7); EOS % 4 % (0-3); HEMATOCRIT 35.8 % (36.0-47.0); HEMOGLOBIN 11.3 g/dL (12.0-15.5); LYMPH # 2.8 x10^3/uL (1.0-4.8); LYMPH % 33 % (24-48); MEAN CORPUSCULAR HEMOGLOBIN 28 pg (25-35); MEAN CORPUSCULAR HGB CONC 32 g/dL (31-37); MEAN CORPUSCULAR VOLUME 90 fL (79-100); MONO # 0.9 x10^3/uL (0.0-1.1); MONO % 10 % (0-9); NEUT # 4.3 x10^3uL (1.8-7.7); NEUT % 52 % (31-73); PLATELET COUNT 329 x10^3/uL (140-400); RED BLOOD COUNT 3.99 x10^6/uL (3.50-5.40); RED CELL DISTRIBUTION WIDTH 16.2 % (11.5-14.5); WHITE BLOOD COUNT 8.3 x10^3/uL (4.0-11.0)
[2017-12-28 06:30] LABS: ANION GAP 9 (6-14); BLOOD UREA NITROGEN 13 mg/dL (7-20); CALCIUM 9.2 mg/dL (8.5-10.1); CARBON DIOXIDE 28 mmol/L (21-32); CHLORIDE 101 mmol/L (98-107); CREATININE 0.7 mg/dL (0.6-1.0); GFR 96.7; GLUCOSE 84 mg/dL (70-99); POTASSIUM 4.2 mmol/L (3.5-5.1); SODIUM 138 mmol/L (136-145)
[2017-12-28 07:02] LABS: POC GLUCOSE 98 mg/dL (70-99)
[2017-12-28] MEDS: BUDESONIDE 0.5 MG/2 ML NEBU. NEB ×2 (08:42→20:46)
[2017-12-28] MEDS: IPRATRPIUM/ALBUTEROL 0.5/2.5MG 3 ML NEBU. NEB ×4 (08:42→20:46)
[2017-12-28] MEDS: MUPIROCIN 2 % TOPICAL CREAM 15GM TUBE. TP ×2 (09:00→21:20)
[2017-12-28] MEDS: CLOTRIMAZOLE/BETAMETH 1%-0.05% TOPICAL CREAM 15GM TUBE. TP ×2 (09:00→21:00)
[2017-12-28] MEDS: POTASSIUM CHLORIDE 20 MEQ/15 ML ORAL LIQUID. PEG (09:02)
[2017-12-28] MEDS: AMOXICILLIN/K CLAV 875/125MG TABLET. PO (09:02)
[2017-12-28] MEDS: LACTOBACILLUS RHAMNOSUS GG 1 CAPSULE. PO ×2 (09:02→21:11)
[2017-12-28] MEDS: hydrALAZINE 25 MG TABLET PEG ×3 (09:02→21:11)
[2017-12-28] MEDS: MULTIVITAMINS,THERAPEUTIC 5 ML ORAL LIQUID. PEG (09:02)
[2017-12-28] MEDS: ASCORBIC ACID 500 MG TABLET PEG (09:02)
[2017-12-28] MEDS: SENNOSIDES/DOCUSATE 8.6/50MG TABLET. PO (09:02)
[2017-12-28] MEDS: DOXYCYCLINE HYCLATE 100 MG TABLET PO ×2 (09:02→21:10)
[2017-12-28] MEDS: ENOXAPARIN 40 MG/0.4 ML SYRINGE. SQ ×2 (09:03→21:12)
[2017-12-28] MEDS: amLODIPine BESYLATE 5 MG TABLET GT (09:03)
[2017-12-28] MEDS: METOPROLOL TART IMMED RELEASE 25 MG TABLET. PEG ×2 (09:03→21:11)
[2017-12-28] MEDS: POLYVINYL ALCOHOL 1.4% OPHTH SOLUTION 15ML BOTTLE. OU ×4 (09:04→21:10)
[2017-12-28] MEDS: AMINO AC 3%/ELECTROLYTE/GLYCER 1,000 ML IV (12:14)
[2017-12-28] MEDS ORDERED: CONTRAST GIVEN MC (12:30)
[2017-12-28] MEDS: IOHEXOL 300 MG/ML 100ML VIAL. PO (13:15)
[2017-12-28 13:43] LABS: POC GLUCOSE 93 mg/dL (70-99)
[2017-12-28] MEDS ORDERED: MEROPENEM 500 MG in IV NORMAL SALINE 50ML 50 ML IV (14:00)
[2017-12-28] MEDS: MEROPENEM IV Push 500 MG VIAL. IVP ×2 (14:40→21:10)
[2017-12-28] MEDS: LATANOPROST 0.005% OPHTH SOLUTION 2.5ML BOTTLE. OU (21:18)
[2017-12-29] MEDS: AMINO AC 3%/ELECTROLYTE/GLYCER 1,000 ML IV ×3 (02:20→23:47)
[2017-12-29 04:52] LABS: POC GLUCOSE 100 mg/dL (70-99)
[2017-12-29] MEDS: MEROPENEM IV Push 500 MG VIAL. IVP ×3 (05:18→21:21)
[2017-12-29 05:46] LABS: ADD MAN DIFF? NO
[2017-12-29 06:05] LABS: BASO # 0.1 x10^3/uL (0.0-0.2); BASO % 1 % (0-3); EOS # 0.2 x10^3/uL (0.0-0.7); EOS % 3 % (0-3); HEMOGLOBIN 10.5 g/dL (12.0-15.5); LYMPH # 2.5 x10^3/uL (1.0-4.8); LYMPH % 32 % (24-48); MEAN CORPUSCULAR HEMOGLOBIN 29 pg (25-35); MEAN CORPUSCULAR HGB CONC 32 g/dL (31-37); MEAN CORPUSCULAR VOLUME 90 fL (79-100); MONO # 0.9 x10^3/uL (0.0-1.1); MONO % 12 % (0-9); NEUT # 4.1 x10^3uL (1.8-7.7); NEUT % 52 % (31-73); PLATELET COUNT 306 x10^3/uL (140-400); RED BLOOD COUNT 3.68 x10^6/uL (3.50-5.40); RED CELL DISTRIBUTION WIDTH 15.7 % (11.5-14.5); WHITE BLOOD COUNT 7.8 x10^3/uL (4.0-11.0)
[2017-12-29 06:13] LABS: ANION GAP 7 (6-14); BLOOD UREA NITROGEN 18 mg/dL (7-20); CARBON DIOXIDE 28 mmol/L (21-32); CHLORIDE 105 mmol/L (98-107); CREATININE 0.7 mg/dL (0.6-1.0); GFR 96.7; GLUCOSE 105 mg/dL (70-99); SODIUM 140 mmol/L (136-145)
[2017-12-29 06:41] LABS: POC GLUCOSE 98 mg/dL (70-99)
[2017-12-29] MEDS: POTASSIUM CHLORIDE 20 MEQ/15 ML ORAL LIQUID. PEG (07:21)
[2017-12-29] MEDS: MULTIVITAMINS,THERAPEUTIC 5 ML ORAL LIQUID. PEG (07:21)
[2017-12-29] MEDS: LACTOBACILLUS RHAMNOSUS GG 1 CAPSULE. PO ×2 (07:22→20:36)
[2017-12-29] MEDS: METOPROLOL TART IMMED RELEASE 25 MG TABLET. PEG ×2 (07:22→20:36)
[2017-12-29] MEDS: ENOXAPARIN 40 MG/0.4 ML SYRINGE. SQ ×2 (07:22→20:37)
[2017-12-29] MEDS: amLODIPine BESYLATE 5 MG TABLET GT (07:22)
[2017-12-29] MEDS: DOXYCYCLINE HYCLATE 100 MG TABLET PO ×2 (07:22→20:35)
[2017-12-29 07:23] LABS: POC GLUCOSE 103 mg/dL (70-99)
[2017-12-29] MEDS: ASCORBIC ACID 500 MG TABLET PEG (07:23)
[2017-12-29] MEDS: SENNOSIDES/DOCUSATE 8.6/50MG TABLET. PO (07:23)
[2017-12-29] MEDS: hydrALAZINE 25 MG TABLET PEG ×3 (07:23→20:36)
[2017-12-29] MEDS: POLYVINYL ALCOHOL 1.4% OPHTH SOLUTION 15ML BOTTLE. OU ×4 (07:24→20:37)
[2017-12-29] MEDS: MUPIROCIN 2 % TOPICAL CREAM 15GM TUBE. TP ×2 (07:24→20:38)
[2017-12-29] MEDS: CLOTRIMAZOLE/BETAMETH 1%-0.05% TOPICAL CREAM 15GM TUBE. TP ×2 (07:25→20:38)
[2017-12-29] MEDS: IPRATRPIUM/ALBUTEROL 0.5/2.5MG 3 ML NEBU. NEB ×4 (08:14→20:37)
[2017-12-29] MEDS: BUDESONIDE 0.5 MG/2 ML NEBU. NEB ×2 (08:15→20:37)
[2017-12-29 12:06] LABS: POC GLUCOSE 105 mg/dL (70-99)
[2017-12-29] MEDS: LANSOPRAZOLE 30 MG TAB.RAP.DR FT (12:20)
[2017-12-29] MEDS: LATANOPROST 0.005% OPHTH SOLUTION 2.5ML BOTTLE. OU (20:37)
[2017-12-30] MEDS: cloNIDine HCL 0.1 MG TABLET PEG (04:08)
[2017-12-30] MEDS: HYDROcodone/APAP 7.5/325MG 1 TAB TABLET PO (04:09)
[2017-12-30 05:20] LABS: C DIFF BY PCR Negative (Negative)
[2017-12-30] MEDS: MEROPENEM IV Push 500 MG VIAL. IVP ×3 (05:38→21:39)
[2017-12-30 07:18] LABS: POC GLUCOSE 124 mg/dL (70-99)
[2017-12-30] MEDS: BUDESONIDE 0.5 MG/2 ML NEBU. NEB ×2 (08:34→19:28)
[2017-12-30] MEDS: IPRATRPIUM/ALBUTEROL 0.5/2.5MG 3 ML NEBU. NEB ×4 (08:34→19:28)
[2017-12-30] MEDS: CLOTRIMAZOLE/BETAMETH 1%-0.05% TOPICAL CREAM 15GM TUBE. TP ×2 (09:00→21:00)
[2017-12-30] MEDS: POLYVINYL ALCOHOL 1.4% OPHTH SOLUTION 15ML BOTTLE. OU ×4 (09:00→21:39)
[2017-12-30] MEDS: MUPIROCIN 2 % TOPICAL CREAM 15GM TUBE. TP ×2 (09:00→21:41)
[2017-12-30] MEDS: ASCORBIC ACID 500 MG TABLET PEG (10:14)
[2017-12-30] MEDS: DOXYCYCLINE HYCLATE 100 MG TABLET PO ×2 (10:15→21:37)
[2017-12-30] MEDS: LANSOPRAZOLE 30 MG TAB.RAP.DR FT (10:15)
[2017-12-30] MEDS: hydrALAZINE 25 MG TABLET PEG ×3 (10:15→21:38)
[2017-12-30] MEDS: LACTOBACILLUS RHAMNOSUS GG 1 CAPSULE. PO ×2 (10:16→21:37)
[2017-12-30] MEDS: amLODIPine BESYLATE 5 MG TABLET GT (10:16)
[2017-12-30] MEDS: METOPROLOL TART IMMED RELEASE 25 MG TABLET. PEG ×2 (10:16→21:38)
[2017-12-30] MEDS: SENNOSIDES/DOCUSATE 8.6/50MG TABLET. PO (10:16)
[2017-12-30] MEDS: ENOXAPARIN 40 MG/0.4 ML SYRINGE. SQ ×2 (10:17→21:37)
[2017-12-30] MEDS: POTASSIUM CHLORIDE 20 MEQ/15 ML ORAL LIQUID. PEG (10:17)
[2017-12-30] MEDS: MULTIVITAMINS,THERAPEUTIC 5 ML ORAL LIQUID. PEG (10:17)
[2017-12-30 11:42] LABS: POC GLUCOSE 107 mg/dL (70-99)
[2017-12-30] MEDS ORDERED: LIDOCAINE WITH 8.4% SOD BICARB 3 ML DISP.SYRIN. (13:23)
[2017-12-30] MEDS ORDERED: LIDOCAINE 2%/EPI 1:100,000 20 ML VIAL. (13:44)
[2017-12-30] MEDS ORDERED: HEPARIN for IV BOLUS 10,000 UNIT/10 ML VIAL. (13:44)
[2017-12-30] MEDS ORDERED: HEPARIN PF 500 UNIT/5 ML DISP.SYRIN. IV (13:55)
[2017-12-30] MEDS: LIDOCAINE WITH 8.4% SOD BICARB 3 ML DISP.SYRIN. IJ (14:00)
[2017-12-30] MEDS: HEPARIN PF 500 UNIT/5 ML DISP.SYRIN. IV (14:20)
[2017-12-30] MEDS: LIDOCAINE 2%/EPI 1:100,000 20 ML VIAL. IJ (14:21)
[2017-12-30] MEDS: AMINO AC 3%/ELECTROLYTE/GLYCER 1,000 ML IV (17:03)
[2017-12-30] MEDS: LATANOPROST 0.005% OPHTH SOLUTION 2.5ML BOTTLE. OU (21:00)
[2017-12-31 01:15] LABS: POC GLUCOSE 90 mg/dL (70-99)
[2017-12-31] MEDS: AMINO AC 3%/ELECTROLYTE/GLYCER 1,000 ML IV ×2 (02:43→17:26)
[2017-12-31] MEDS: MEROPENEM IV Push 500 MG VIAL. IVP (06:15)
[2017-12-31] MEDS: IPRATRPIUM/ALBUTEROL 0.5/2.5MG 3 ML NEBU. NEB ×4 (08:17→19:35)
[2017-12-31] MEDS: BUDESONIDE 0.5 MG/2 ML NEBU. NEB ×2 (08:17→19:35)
[2017-12-31] MEDS: CLOTRIMAZOLE/BETAMETH 1%-0.05% TOPICAL CREAM 15GM TUBE. TP ×2 (09:00→21:00)
[2017-12-31] MEDS: LACTOBACILLUS RHAMNOSUS GG 1 CAPSULE. PO ×2 (09:09→23:04)
[2017-12-31] MEDS: METOPROLOL TART IMMED RELEASE 25 MG TABLET. PEG ×2 (09:09→23:04)
[2017-12-31] MEDS: LANSOPRAZOLE 30 MG TAB.RAP.DR FT (09:09)
[2017-12-31] MEDS: DOXYCYCLINE HYCLATE 100 MG TABLET PO ×2 (09:09→23:01)
[2017-12-31] MEDS: hydrALAZINE 25 MG TABLET PEG ×3 (09:10→23:03)
[2017-12-31] MEDS: amLODIPine BESYLATE 5 MG TABLET GT (09:10)
[2017-12-31] MEDS: MULTIVITAMINS,THERAPEUTIC 5 ML ORAL LIQUID. PEG (09:10)
[2017-12-31] MEDS: ASCORBIC ACID 500 MG TABLET PEG (09:10)
[2017-12-31] MEDS: SENNOSIDES/DOCUSATE 8.6/50MG TABLET. PO (09:10)
[2017-12-31] MEDS: POTASSIUM CHLORIDE 20 MEQ/15 ML ORAL LIQUID. PEG (09:11)
[2017-12-31] MEDS: ENOXAPARIN 40 MG/0.4 ML SYRINGE. SQ ×2 (09:11→23:01)
[2017-12-31] MEDS: POLYVINYL ALCOHOL 1.4% OPHTH SOLUTION 15ML BOTTLE. OU ×4 (09:12→23:05)
[2017-12-31] MEDS: MUPIROCIN 2 % TOPICAL CREAM 15GM TUBE. TP ×2 (09:12→23:00)
[2017-12-31] MEDS: MEROPENEM 1 GM in IV NORMAL SALINE 100ML 100 ML IV ×2 (13:27→23:06)
[2017-12-31] MEDS: LATANOPROST 0.005% OPHTH SOLUTION 2.5ML BOTTLE. OU (23:05)
[2018-01-01 05:14] LABS: ADD MAN DIFF? NO
[2018-01-01 05:22] LABS: BASO # 0.1 x10^3/uL (0.0-0.2); BASO % 1 % (0-3); EOS # 0.3 x10^3/uL (0.0-0.7); EOS % 3 % (0-3); HEMATOCRIT 35.8 % (36.0-47.0); HEMOGLOBIN 11.2 g/dL (12.0-15.5); LYMPH # 2.1 x10^3/uL (1.0-4.8); LYMPH % 23 % (24-48); MEAN CORPUSCULAR HEMOGLOBIN 28 pg (25-35); MEAN CORPUSCULAR HGB CONC 31 g/dL (31-37); MEAN CORPUSCULAR VOLUME 89 fL (79-100); MONO # 1.1 x10^3/uL (0.0-1.1); MONO % 13 % (0-9); NEUT # 5.3 x10^3uL (1.8-7.7); NEUT % 60 % (31-73); PLATELET COUNT 349 x10^3/uL (140-400); RED BLOOD COUNT 4.03 x10^6/uL (3.50-5.40); RED CELL DISTRIBUTION WIDTH 16.1 % (11.5-14.5); WHITE BLOOD COUNT 8.9 x10^3/uL (4.0-11.0)
[2018-01-01 05:47] LABS: ANION GAP 8 (6-14); BLOOD UREA NITROGEN 25 mg/dL (7-20); CALCIUM 9.1 mg/dL (8.5-10.1); CARBON DIOXIDE 24 mmol/L (21-32); CHLORIDE 104 mmol/L (98-107); CREATININE 0.7 mg/dL (0.6-1.0); GFR 96.7; GLUCOSE 86 mg/dL (70-99); POTASSIUM 4.4 mmol/L (3.5-5.1); SODIUM 136 mmol/L (136-145)
[2018-01-01] MEDS: MEROPENEM 1 GM in IV NORMAL SALINE 100ML 100 ML IV ×3 (06:46→21:30)
[2018-01-01] MEDS: AMINO AC 3%/ELECTROLYTE/GLYCER 1,000 ML IV ×2 (06:47→19:33)
[2018-01-01] MEDS: IPRATRPIUM/ALBUTEROL 0.5/2.5MG 3 ML NEBU. NEB ×4 (07:52→19:58)
[2018-01-01] MEDS: BUDESONIDE 0.5 MG/2 ML NEBU. NEB ×2 (07:52→19:58)
[2018-01-01] MEDS: ENOXAPARIN 40 MG/0.4 ML SYRINGE. SQ ×2 (08:50→21:30)
[2018-01-01] MEDS: POLYVINYL ALCOHOL 1.4% OPHTH SOLUTION 15ML BOTTLE. OU ×4 (08:50→21:29)
[2018-01-01] MEDS: LOPERAMIDE 2 MG/10 ML ORAL SOLUTION. PEG (08:50)
[2018-01-01] MEDS: DOXYCYCLINE HYCLATE 100 MG TABLET PO ×2 (08:51→21:30)
[2018-01-01] MEDS: LACTOBACILLUS RHAMNOSUS GG 1 CAPSULE. PO ×2 (08:51→21:30)
[2018-01-01] MEDS: POTASSIUM CHLORIDE 20 MEQ/15 ML ORAL LIQUID. PEG (08:51)
[2018-01-01] MEDS: ASCORBIC ACID 500 MG TABLET PEG (08:51)
[2018-01-01] MEDS: METOPROLOL TART IMMED RELEASE 25 MG TABLET. PEG ×2 (08:51→21:30)
[2018-01-01] MEDS: hydrALAZINE 25 MG TABLET PEG ×4 (08:51→21:30)
[2018-01-01] MEDS: MULTIVITAMINS,THERAPEUTIC 5 ML ORAL LIQUID. PEG (08:51)
[2018-01-01] MEDS: LANSOPRAZOLE 30 MG TAB.RAP.DR FT (08:52)
[2018-01-01] MEDS: CLOTRIMAZOLE/BETAMETH 1%-0.05% TOPICAL CREAM 15GM TUBE. TP ×2 (08:52→21:31)
[2018-01-01] MEDS: SENNOSIDES/DOCUSATE 8.6/50MG TABLET. PO (08:52)
[2018-01-01] MEDS: MUPIROCIN 2 % TOPICAL CREAM 15GM TUBE. TP ×2 (08:52→21:00)
[2018-01-01] MEDS: amLODIPine BESYLATE 5 MG TABLET GT (08:52)
[2018-01-01] MEDS: LATANOPROST 0.005% OPHTH SOLUTION 2.5ML BOTTLE. OU (21:29)
[2018-01-02] MEDS: MEROPENEM 1 GM in IV NORMAL SALINE 100ML 100 ML IV (05:38)
[2018-01-02] MEDS: AMINO AC 3%/ELECTROLYTE/GLYCER 1,000 ML IV (05:43)
[2018-01-02] MEDS: IPRATRPIUM/ALBUTEROL 0.5/2.5MG 3 ML NEBU. NEB ×4 (06:03→20:26)
[2018-01-02] MEDS: BUDESONIDE 0.5 MG/2 ML NEBU. NEB ×2 (06:03→20:26)
[2018-01-02] MEDS: SENNOSIDES/DOCUSATE 8.6/50MG TABLET. PO (09:00)
[2018-01-02] MEDS: POLYVINYL ALCOHOL 1.4% OPHTH SOLUTION 15ML BOTTLE. OU ×4 (09:00→21:38)
[2018-01-02] MEDS: CLOTRIMAZOLE/BETAMETH 1%-0.05% TOPICAL CREAM 15GM TUBE. TP ×2 (09:00→21:42)
[2018-01-02] MEDS: POTASSIUM CHLORIDE 20 MEQ/15 ML ORAL LIQUID. PEG (09:22)
[2018-01-02] MEDS: DOXYCYCLINE HYCLATE 100 MG TABLET PO (09:22)
[2018-01-02] MEDS: METOPROLOL TART IMMED RELEASE 25 MG TABLET. PEG ×2 (09:22→21:41)
[2018-01-02] MEDS: hydrALAZINE 25 MG TABLET PEG ×3 (09:23→21:40)
[2018-01-02] MEDS: amLODIPine BESYLATE 5 MG TABLET GT (09:23)
[2018-01-02] MEDS: ASCORBIC ACID 500 MG TABLET PEG (09:23)
[2018-01-02] MEDS: LACTOBACILLUS RHAMNOSUS GG 1 CAPSULE. PO ×2 (09:23→21:41)
[2018-01-02] MEDS: LANSOPRAZOLE 30 MG TAB.RAP.DR FT (09:23)
[2018-01-02] MEDS: cloNIDine HCL 0.1 MG TABLET PEG (09:24)
[2018-01-02] MEDS: ENOXAPARIN 40 MG/0.4 ML SYRINGE. SQ ×2 (09:24→21:38)
[2018-01-02] MEDS: MULTIVITAMINS,THERAPEUTIC 5 ML ORAL LIQUID. PEG (09:24)
[2018-01-02] MEDS: MUPIROCIN 2 % TOPICAL CREAM 15GM TUBE. TP ×2 (09:25→21:42)
[2018-01-02] MEDS: LATANOPROST 0.005% OPHTH SOLUTION 2.5ML BOTTLE. OU (21:38)
[2018-01-03] MEDS: IPRATRPIUM/ALBUTEROL 0.5/2.5MG 3 ML NEBU. NEB ×2 (07:41→11:36)
[2018-01-03] MEDS: BUDESONIDE 0.5 MG/2 ML NEBU. NEB (07:41)
[2018-01-03] MEDS: POLYVINYL ALCOHOL 1.4% OPHTH SOLUTION 15ML BOTTLE. OU (09:00)
[2018-01-03] MEDS: CLOTRIMAZOLE/BETAMETH 1%-0.05% TOPICAL CREAM 15GM TUBE. TP (09:00)
[2018-01-03] MEDS: MUPIROCIN 2 % TOPICAL CREAM 15GM TUBE. TP (09:00)
[2018-01-03] MEDS: LACTOBACILLUS RHAMNOSUS GG 1 CAPSULE. PO (10:03)
[2018-01-03] MEDS: MULTIVITAMINS,THERAPEUTIC 5 ML ORAL LIQUID. PEG (10:03)
[2018-01-03] MEDS: SENNOSIDES/DOCUSATE 8.6/50MG TABLET. PO (10:03)
[2018-01-03] MEDS: ENOXAPARIN 40 MG/0.4 ML SYRINGE. SQ (10:04)
[2018-01-03] MEDS: METOPROLOL TART IMMED RELEASE 25 MG TABLET. PEG (10:04)
[2018-01-03] MEDS: hydrALAZINE 25 MG TABLET PEG (10:05)
[2018-01-03] MEDS: ASCORBIC ACID 500 MG TABLET PEG (10:05)
[2018-01-03] MEDS: amLODIPine BESYLATE 5 MG TABLET GT (10:06)
[2018-01-03] MEDS: POTASSIUM CHLORIDE 20 MEQ/15 ML ORAL LIQUID. PEG (10:06)
[2018-01-03] MEDS: LANSOPRAZOLE 30 MG TAB.RAP.DR FT (10:06)
== END 2018-01-03 15:00 | disposition home or self-care (01) | DRG 871 ==
LOC: ER 03:25 → 1 WEST ICU 03:30 → 5 SOUTH 15:45
PROC: 05HN33Z Insertion of Infusion Device into Left Internal Jugular Vein, Percutaneous Approach (ICD-10-PCS; principal; 2017-12-23)
PROC: B544ZZA Ultrasonography of Left Jugular Veins, Guidance (ICD-10-PCS; 2017-12-23)
PROC: 05HN33Z Insertion of Infusion Device into Left Internal Jugular Vein, Percutaneous Approach (ICD-10-PCS; 2017-12-23)
PROC: B5141ZA Fluoroscopy of Left Jugular Veins using Low Osmolar Contrast, Guidance (ICD-10-PCS; 2017-12-23)
PROC: 0JH63XZ Insertion of Tunneled Vascular Access Device into Chest Subcutaneous Tissue and Fascia, Percutaneous Approach (ICD-10-PCS; 2017-12-23)
PROC: 05HN33Z Insertion of Infusion Device into Left Internal Jugular Vein, Percutaneous Approach (ICD-10-PCS; 2017-12-23)
PROC: 5A09357 Assistance with Respiratory Ventilation, Less than 24 Consecutive Hours, Continuous Positive Airway Pressure (ICD-10-PCS; 2017-12-23)
PROC: 0JPV3XZ Removal of Tunneled Vascular Access Device from Upper Extremity Subcutaneous Tissue and Fascia, Percutaneous Approach (ICD-10-PCS; 2017-12-23)
PROC: 05PYX3Z Removal of Infusion Device from Upper Vein, External Approach (ICD-10-PCS; 2017-12-23)
DX: A41.9 Sepsis, unspecified organism (principal); J69.0 Pneumonitis due to inhalation of food and vomit; J96.01 Acute respiratory failure with hypoxia; L89.154 Pressure ulcer of sacral region, stage 4; E87.0 Hyperosmolality and hypernatremia; E11.22 Type 2 diabetes mellitus with diabetic chronic kidney disease; M32.9 Systemic lupus erythematosus, unspecified; E11.69 Type 2 diabetes mellitus with other specified complication; G81.90 Hemiplegia, unspecified affecting unspecified side; K94.23 Gastrostomy malfunction; K26.9 Duodenal ulcer, unspecified as acute or chronic, without hemorrhage or perforation; I48.91 Unspecified atrial fibrillation; D64.9 Anemia, unspecified; E03.9 Hypothyroidism, unspecified; E78.00 Pure hypercholesterolemia, unspecified; E78.5 Hyperlipidemia, unspecified; F03.90 Unspecified dementia, unspecified severity, without behavioral disturbance, psychotic disturbance, mood disturbance, and anxiety; I12.9 Hypertensive chronic kidney disease with stage 1 through stage 4 chronic kidney disease, or unspecified chronic kidney disease; I25.10 Atherosclerotic heart disease of native coronary artery without angina pectoris; I69.320 Aphasia following cerebral infarction; J98.01 Acute bronchospasm; K21.9 Gastro-esophageal reflux disease without esophagitis; K44.9 Diaphragmatic hernia without obstruction or gangrene; K57.90 Diverticulosis of intestine, part unspecified, without perforation or abscess without bleeding; M24.569 Contracture, unspecified knee; N18.9 Chronic kidney disease, unspecified; R13.10 Dysphagia, unspecified; M19.90 Unspecified osteoarthritis, unspecified site; Y95 Nosocomial condition; Z74.01 Bed confinement status; Z82.3 Family history of stroke; Z82.49 Family history of ischemic heart disease and other diseases of the circulatory system; Z86.14 Personal history of Methicillin resistant Staphylococcus aureus infection; Z89.611 Acquired absence of right leg above knee; Z87.440 Personal history of urinary (tract) infections
CPT/HCPCS: 36415; 36556; 36569; 36581; 36589; 36600; 71045; 74018; 76937; 77001; 80048; 80053; 81001; 82805; 82962; 83605; 83880; 84484; 85025; 85610; 87040; 87086; 87324; 87641; 87804; 87804-59; 93005; 94640; 94644; 94660; 94760; C1751; C1892; J1650; J2185; J2248; J2543; J3370; J3490; J7030; J7613; J7620; J7626; J7644; Q9967

== ENCOUNTER 2019-02-11 09:19 | Inpatient (IN) | payer MEDICARE, OTHER ==
[~2019-02-11] VITALS: Ht 157.5 cm; Wt 67.6 kg
[~2019-02-11 09:19] MED LIST: ACET325T9 PO; ACET500T68 PO; ACET650S PEG; AMLO10TA4 PEG; AMLO10TA8 PO; AMLO5TAB10 GT; AMOX600S19 PO; ASCO500T2 PEG; ASCO500T2 PO; ASCO500T3 PEG; BUDE0.253 NEB; CLON0.1T PEG; CLON0.1T TOP; CLON0.1T12 PEG; CLON1PAT11 TD; CLOT15CR3 TP; DEXT1DRO7 OP; DONE10TA7 PO; ENOX40DI SQ; Enoxaparin Sodium SQ; FAMO10TA26 PO; FAMO20TA5 PO; FAMO40TA4 FT; FENT1PAT13 TP; FENT50VI IV; FLUC100T7 PO; GENT5DRO3 OD; HYDR-2679 PO; HYDR-2765 PO; HYDR-2868 PEG; HYDR12.58 PEG; HYDR15SO6 PO; Hydralazine Hcl IV; Hydralazine Hcl PEG; Hydrocodone/Acetaminophen PEG; Hydrocortisone TP; IPRA3AMP29 IH; IPRA3AMP29 NEB; LACT1CAP6 GT; LANS30CA66 PEG; LANS30TA6 FT; LANS30TA6 PEG; LATA2.5D2 EACHEYE; LATA2.5D2 OU; LATA2.5D3 EACHEYE; LATA2.5D3 OP; LEVO250T7 PO; LINE600T PO; LOPE1LIQ34 PEG; LORA0.5T96 GT; LOSA100T14 PO; METH5TAB6 PO; METO25TA4 PEG; MUPI15CR TP; MUPI15CR8 TP; Metoprolol Tartrate PEG; Metoprolol Tartrate PO; Multivitamins,Therapeutic PEG; NYST100054 PO; NYST15CR TP; OXYM30MI NS; PANT40TA3 PO; POLY15DR27 OU; POTA10TA12 PO; POTA20LI27 PEG; SENN-161 PEG; SENN1TAB62 FT; SODI104S NS; Sennosides/Docusate Sodium PO; Sodium Chloride NS; Vancomycin Hcl PEG; WARF-31 PO; [UNRECOGNIZED DRUG - CODE] PEG
[2019-02-11] MEDS ORDERED: IV NORMAL SALINE 1000ML BAG 1,000 ML IV SCH (09:25)
--- NOTE | 2019-02-11 09:44 | EKG ---
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
--- NOTE | 2019-02-11 09:44 | PHYS DOC ---
Past Medical History Past Medical History: Arthritis, Constipation, CVA, Hypertension, Other Additional Past Medical Histor: Hemiplegia, aspiration PNA, SLE, osteomyelitis , SOB, open wounds Past Surgical History: Other Additional Past Surgical Histo: gastrostomy, Other history unknown. AKA Jose leg Alcohol Use: None Drug Use: None Adult General Chief Complaint Chief Complaint: SHORTNESS OF BREATH HPI HPI She was 83-year-old female who arrives in the emergency department via EMS. According to EMS report, the patient was found to be hypoxic with an oxygen saturation in the mid 80s, on her normal 2 L of nasal cannula. [facility] reported to EMS that the patient was more "lethargic" than usual, although they reported that her current mental status is baseline for her. The patient is nonverbal, and appears to have had a stroke, and has hemiplegia secondary to prior CVA listed on her past history. The patient is not able to provide any history. There have been no reports of cough. EMS reported that he increase the patient's oxygen flow to 6 L, with improvement in her saturation to the upper 90s. The patient's CODE STATUS is listed as "DNR". Review of Systems Review of Systems Unable to provide review of systems secondary to patient being nonverbal. Current Medications Current Medications Current Medications Medications (Trade) Dose Ordered Sig/Michelle Start Time Stop Time Status Last Admin Dose Admin Sodium Chloride 1,000 ml @ 1,000 mls/hr 1X ONCE 02/11/19 11:15 02/11/19 12:14 Allergies Allergies Allergies Coded Allergies Type Severity Reaction Last Updated Verified I S O L A T I O N *CONTACT* Allergy Unknown 12/06/17 Yes No Known Medication Allergies Allergy Unknown 12/06/17 Yes Physical Exam Physical Exam PHYSICAL EXAM: CONSTITUTIONAL: Well developed, well nourished HEAD: normocephalic, atraumatic EENT: PERRL, EOMI. Conjunctivae normal color, sclerae non-icteric; dry mucous membranes. NECK: Supple, non-tender; no meningismus. LUNGS: There are some crackles in the bases bilaterally, breathing even and unlabored. Normal air movement. HEART: Regular tachycardia, no murmur CHEST: No deformity; non-tender ABDOMEN: The abdomen is soft, and non-tender, no masses or bruits. a feeding tube is in place. EXTREM: Normal ROM; no deformity, no calf tenderness. Normal pulses palpable in all extremities. There is no pedal edema. 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 The left upper and lower extremities are contractured. SKIN: No rash; no diaphoresis. There are no obvious open wounds on the patient' s back or proximal. NEURO: Patient will awaken when spoken to, and track with her eyes. There is contractures the left arm and leg. BACK: No CVA TTP. Current Patient Data Vital Signs Vital Signs Date Time Temp Pulse Resp B/P (MAP) Pulse Ox O2 Delivery O2 Flow Rate FiO2 02/11/19 10:04 91 Nasal Cannula 3.0 02/11/19 09:20 101.2 113 28 132/60 (84) 101.2 Lab Values Laboratory Tests Test 02/11/19 09:25 02/11/19 10:10 02/11/19 10:20 O2 Saturation 91 % (92-99) L Arterial Blood pH 7.42 (7.35-7.45) Arterial Blood pCO2 at Patient Temp 43 mmHg (35-46) Arterial Blood pO2 at Patient Temp 59 mmHg (65-108) L Arterial Blood HCO3 27 mmol/L (21-28) Arterial Blood Base Excess 2 mmol/L (-3-3) FiO2 32 White Blood Count 22.7 x10^3/uL (4.0-11.0) H Red Blood Count 4.99 x10^6/uL (3.50-5.40) Hemoglobin 13.8 g/dL (12.0-15.5) Hematocrit 46.8 % (36.0-47.0) Mean Corpuscular Volume 94 fL (79-100) Mean Corpuscular Hemoglobin 28 pg (25-35) Mean Corpuscular Hemoglobin Concent 29 g/dL (31-37) L Red Cell Distribution Width 18.8 % (11.5-14.5) H Platelet Count 160 x10^3/uL (140-400) Neutrophils (%) (Auto) 76 % (31-73) H Lymphocytes (%) (Auto) 19 % (24-48) L Monocytes (%) (Auto) 5 % (0-9) Eosinophils (%) (Auto) 0 % (0-3) Basophils (%) (Auto) 0 % (0-3) Neutrophils # (Auto) 17.2 x10^3uL (1.8-7.7) H Lymphocytes # (Auto) 4.2 x10^3/uL (1.0-4.8) Monocytes # (Auto) 1.2 x10^3/uL (0.0-1.1) H Eosinophils # (Auto) 0.0 x10^3/uL (0.0-0.7) Basophils # (Auto) 0.1 x10^3/uL (0.0-0.2) Platelet Estimate Pending Sodium Level 178 mmol/L (136-145) *H Potassium Level 3.3 mmol/L (3.5-5.1) L Chloride Level 133 mmol/L (98-107) H Carbon Dioxide Level 30 mmol/L (21-32) Anion Gap 15 (6-14) H Blood Urea Nitrogen 86 mg/dL (7-20) H Creatinine 2.6 mg/dL (0.6-1.0) H Estimated GFR (Cockcroft-Gault) 21.2 BUN/Creatinine Ratio 33 (6-20) H Glucose Level 115 mg/dL (70-99) H Calcium Level 8.7 mg/dL (8.5-10.1) Total Bilirubin 0.8 mg/dL (0.2-1.0) Aspartate Amino Transferase (AST) 36 U/L (15-37) Alanine Aminotransferase (ALT) 62 U/L (14-59) H Alkaline Phosphatase 121 U/L (46-116) H Troponin I Quantitative < 0.017 ng/mL (0.000-0.055) DK-Qmg-T-Type Natriuretic Peptide 944 pg/mL (0-449) H Total Protein 8.0 g/dL (6.4-8.2) Albumin 2.6 g/dL (3.4-5.0) L Albumin/Globulin Ratio 0.5 (1.0-1.7) L Urine Collection Type U cath Urine Color Jocelyne Urine Clarity Cloudy Urine pH 5.0 Urine Specific [place] 1.025 Urine Protein 100 mg/dL (NEG-TRACE) Urine Glucose (UA) Negative mg/dL (NEG) Urine Ketones (Stick) Trace mg/dL (NEG) Urine Blood Negative (NEG) Urine Nitrite Negative (NEG) Urine Bilirubin Negative (NEG) Urine Urobilinogen Dipstick 1.0 mg/dL (0.2 mg/dL) Urine Leukocyte Esterase Trace (NEG) Urine RBC 0 /HPF (0-2) Urine WBC 1-4 /HPF (0-4) Urine Squamous Epithelial Cells None /LPF Urine Bacteria Few /HPF (0-FEW) Urine Hyaline Casts Moderate /HPF Laboratory Tests 02/11/19 10:10 Laboratory Tests 02/11/19 10:10 EKG EKG [Sinus tachycardia rate of 110 beats for minute, left axis deviation, normal intervals, nonspecific ST/T changes, there are occasional APCs] Radiology/Procedures Radiology/Procedures [PROCEDURE: PORTABLE CHEST 1V Examination: PORTABLE CHEST 1V History: shortness of breath Comparison/Correlation: CT chest without contrast 10/02/2018 Findings: Portable upright frontal view of the chest was obtained. Limited pulmonary inflation is noted. Heart size is borderline. No pneumothorax. Interstitial thickening of lung ov noted. Pulmonary vasculature is increased slightly congested but this may in part be artifactual due to limited pulmonary inflation. Retrocardiac linear atelectasis is present. Bony bridging of the inferior glenoid with the humeral neck bilaterally is evident. Impression: Slight pulmonary vasculature congestion may be present. No dense consolidation. Consider interval follow-up two-view chest x-ray exam for more complete assessment. ] Course & Med Decision Making Course & Med Decision Making Pertinent Labs and Imaging studies reviewed. (See chart for details) [11:30 AM:The patient's condition remains stable. I spoke with Dr. Khan, who accepted the patient to the hospital for further evaluation and treatment. At this point, I do not have any definite evidence of infection. I suspect the patient's leukocytosis might be related to hemoconcentration and physiologic stress from her significant dehydration. I will cover her with a single dose of antibiotics pending blood culture results.] Dragon Disclaimer Dragon Disclaimer This electronic medical record was generated, in whole or in part, using a voice recognition dictation system. Departure Departure Impression: Primary Impression: Acute renal failure Additional Impressions: Dehydration Hypernatremia Admitting Physician: Hiro Khan Condition: STABLE Referrals: JENY CANTU MD (PCP) Problem Qualifiers BELIA KAN MD Feb 11, 2019 09:44
--- NOTE | 2019-02-11 09:53 | RAD ---
Examination: PORTABLE CHEST 1V History: shortness of breath Comparison/Correlation: CT chest without contrast 10/02/2018 Findings: Portable upright frontal view of the chest was obtained. Limited pulmonary inflation is noted. Heart size is borderline. No pneumothorax. Interstitial thickening of lung vo noted. Pulmonary vasculature is increased slightly congested but this may in part be artifactual due to limited pulmonary inflation. Retrocardiac linear atelectasis is present. Bony bridging of the inferior glenoid with the humeral neck bilaterally is evident. Impression: Slight pulmonary vasculature congestion may be present. No dense consolidation. Consider interval follow-up two-view chest x-ray exam for more complete assessment. Electronically signed by: Stanford Gaspar MD (02/11/2019 9:50 AM) [facility]
[2019-02-11 10:02] LABS: BASE EXCESS ABG 2 mmol/L (-3-3); HCO3 ABG 27 mmol/L (21-28); PCO2 ABG 43 mmHg (35-46); PO2 ABG 59 mmHg (65-108); SAT O2 ABG 91 % (92-99)
[2019-02-11 10:05] LABS: FIO2 ABG 32
[2019-02-11 10:48] LABS: BASO # 0.1 x10^3/uL (0.0-0.2); BASO % 0 % (0-3); EOS % 0 % (0-3); HEMATOCRIT 46.8 % (36.0-47.0); HEMOGLOBIN 13.8 g/dL (12.0-15.5); LYMPH # 4.2 x10^3/uL (1.0-4.8); LYMPH % 19 % (24-48); MEAN CORPUSCULAR HEMOGLOBIN 28 pg (25-35); MEAN CORPUSCULAR HGB CONC 29 g/dL (31-37); MEAN CORPUSCULAR VOLUME 94 fL (79-100); MONO # 1.2 x10^3/uL (0.0-1.1); MONO % 5 % (0-9); NEUT # 17.2 x10^3uL (1.8-7.7); NEUT % 76 % (31-73); PLATELET COUNT 160 x10^3/uL (140-400); RED BLOOD COUNT 4.99 x10^6/uL (3.50-5.40); RED CELL DISTRIBUTION WIDTH 18.8 % (11.5-14.5); WHITE BLOOD COUNT 22.7 x10^3/uL (4.0-11.0)
[2019-02-11 11:00] LABS: ALBUMIN 2.6 g/dL (3.4-5.0); ALBUMIN/GLOBULIN RATIO 0.5 (1.0-1.7); CALCIUM 8.7 mg/dL (8.5-10.1); CREATININE 2.6 mg/dL (0.6-1.0); GFR 21.2; POTASSIUM 3.3 mmol/L (3.5-5.1); TOTAL BILIRUBIN 0.8 mg/dL (0.2-1.0)
[2019-02-11 11:02] LABS: BILIRUBIN,URINE NEGATIVE (NEG); CLARITY,URINE CLOUDY; COLOR,URINE AMBER; NITRITE,URINE NEGATIVE (NEG); PROTEIN,URINE 100 mg/dL (NEG-TRACE)
[2019-02-11] MEDS ORDERED: IV NORMAL SALINE 1000ML BAG 1,000 ML IV ONE ×2 (11:15→11:45)
[2019-02-11 11:23] LABS: BACTERIA,URINE FEW /HPF (0-FEW); HYALINE CASTS, URINE MODERATE /HPF; RBC,URINE 0 /HPF (0-2)
[2019-02-11] MEDS ORDERED: cefTRIAXone IV Push 1 GM VIAL. IVP ONE (11:30)
[2019-02-11 11:31] LABS: PROTHROMBIN TIME PATIENT 14.9 SEC (11.7-14.0)
[2019-02-11 11:43] LABS: % BANDS 7 % (0-9); % LYMPHS 25 % (24-48); % MONOS 5 % (0-10); % SEGS 63 % (35-66); PLT ESTIMATE ADEQUATE (ADEQUATE)
[2019-02-11] MEDS ORDERED: ACETAMINOPHEN 650 MG/20.3 ML SOLUTION. ONE (12:30)
[2019-02-11 15:00] VITALS: BP 102/56
[2019-02-11 16:22] LABS: INFLUENZA B PATIENT POSITIVE (NEGATIVE)
[2019-02-11 16:25] LABS: INFLUENZA A PATIENT POSITIVE (NEGATIVE)
[2019-02-11] MEDS ORDERED: LANSOPRAZOLE 30 MG TAB.RAP.DR PO SCH (17:30)
[2019-02-11] MEDS ORDERED: cloNIDine HCL 0.1 MG TABLET PO PRN (17:30)
[2019-02-11] MEDS ORDERED: LOPERAMIDE 2 MG CAPSULE PO PRN (17:30)
[2019-02-11] MEDS ORDERED: IV 1/2 NORMAL SALINE 1,000 ML IV SCH (19:30)
[2019-02-11 19:46] VITALS: BP 100/64
[2019-02-11] MEDS: MUPIROCIN 2 % TOPICAL CREAM 15GM TUBE. TP SCH (20:18)
[2019-02-11] MEDS: CLOTRIMAZOLE/BETAMETH 1%-0.05% TOPICAL CREAM 15GM TUBE. TP SCH (20:18)
[2019-02-11] MEDS: METOPROLOL TART IMMED RELEASE 25 MG TABLET. PO SCH (20:19)
[2019-02-11 23:49] VITALS: BP 102/50
--- NOTE | 2019-02-12 00:07 | NUR ---
Pt sepsis screen positive, notified icu charge nurse, was aware of pt's admission. Blood culture is pending, pt was given antibiotic at ED. Will continue to monitor pt.
[2019-02-12 03:59] VITALS: BP 96/53
[2019-02-12 05:39] LABS: CALCIUM 8.4 mg/dL (8.5-10.1); CREATININE 2.2 mg/dL (0.6-1.0); GFR 25.7; POTASSIUM 3.8 mmol/L (3.5-5.1)
[2019-02-12] MEDS ORDERED: IV DEXTROSE 5 %-0.45 % NACL 1,000 ML IV SCH (06:15)
[2019-02-12 07:30] VITALS: BP 101/61
--- NOTE | 2019-02-12 08:35 | EKG ---
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
[2019-02-12] MEDS: MUPIROCIN 2 % TOPICAL CREAM 15GM TUBE. TP SCH ×3 (09:00→21:58)
[2019-02-12] MEDS: CLOTRIMAZOLE/BETAMETH 1%-0.05% TOPICAL CREAM 15GM TUBE. TP SCH ×2 (09:00→21:58)
[2019-02-12] MEDS: SENNOSIDES/DOCUSATE 8.6/50MG TABLET. PO SCH (09:24)
[2019-02-12] MEDS: MULTIVITAMIN with MINERAL TABLET. PO SCH (09:24)
[2019-02-12] MEDS: ASCORBIC ACID 500 MG TABLET PO SCH (09:24)
[2019-02-12] MEDS: METOPROLOL TART IMMED RELEASE 25 MG TABLET. PO SCH ×2 (09:25→21:59)
[2019-02-12] MEDS: FAMOTIDINE 20 MG TABLET. PO SCH (09:26)
[2019-02-12] MEDS ORDERED: ACETAMINOPHEN 325 MG TABLET. PO PRN (10:00)
[2019-02-12] MEDS ORDERED: LANSOPRAZOLE 30 MG TAB.RAP.DR PEG PRN (10:00)
--- NOTE | 2019-02-12 10:11 | PDOC ---
Provider Note Provider Note Pt seen.H&P dictated. #[id number]. JENY CANTU MD Feb 12, 2019 10:11
[2019-02-12] MEDS ORDERED: SODIUM CHLORIDE 0.65% NASAL SPRAY 45ML BOTTLE. NS PRN (10:15)
[2019-02-12] MEDS ORDERED: ALBUTEROL SULFATE 2.5 MG/3 ML NEBU. NEB PRN (10:15)
--- NOTE | 2019-02-12 10:19 | CONS ---
DATE OF CONSULTATION: REQUESTING PHYSICIAN: Hiro Khan MD REASON FOR CONSULTATION: Renal failure and hypernatremia. HISTORY OF PRESENT ILLNESS: This is an 83-year-old female with history of CVA; noncommunicative state, chronic PEG dependence. The patient currently admitted to the hospital with dehydration with significant hypernatremia. In this setting, nephrology evaluation requested. PAST MEDICAL HISTORY: CVA, hemiplegia, noncommunicative state, hypertension, aspiration pneumonias, SLE, osteomyelitis. PAST SURGICAL HISTORY: PEG tube placement, right AKA. ALLERGIES: None. MEDICATIONS: Reviewed, per med list. FAMILY HISTORY: Noncontributory. SOCIAL HISTORY: [facility] REVIEW OF SYSTEMS: Unobtainable. PHYSICAL EXAMINATION: APPEARANCE: The patient is staring, noncommunicative. She stares to the left. HEENT: Mouth is markedly dry, bitemporal wasting. Eyes are sunken. NECK: No increased JVD. No thyromegaly, masses. LUNGS: Clear. CARDIAC: Without S3 or rub. ABDOMEN: PEG in place, nontender. EXTREMITIES: Without edema. She has AKA right side. NEUROPSYCHIATRIC: Noncommunicative. LABORATORY DATA: Hemoglobin 13, hematocrit 46.8, white count 22.7. Serum sodium is 178, potassium 3.3, chloride 133, CO2 of 30, BUN 86, creatinine 2.6, glucose 115. Lactic acid 2.5. Urinalysis with specific gravity of 1.025. IMPRESSION: 1. Renal failure, acute-secondary to dehydration. 2. Hypernatremia due to dehydration. RECOMMENDATIONS: IV fluid administration with 0.5 normal saline at 75 mL/hour and we will follow along with you. AJAY WATTS MD DR: DELANO/ria JOB#: [id number] / [id number]
--- NOTE | 2019-02-12 10:57 | HP ---
ADMIT DATE: 02/11/2019 LOCATION: [facility]. REASON FOR ADMISSION TO THE HOSPITAL: Fever and pneumonia. HISTORY OF PRESENT ILLNESS: The patient is an 83-year-old female. The patient has history of previous stroke, bedridden. She also had dysphagia. She had a feeding tube. She was hypoxic at the [facility] and short of breath, was sent to the Emergency Room and she was found to have a white count of 22,000. Influenza was positive and lactic acid was positive. The patient was given antibiotics and was admitted to the hospital. Her BUN and creatinine was high, sodium was high at 173. PAST MEDICAL HISTORY: He has history of stroke, hypertension, hyperlipidemia, previous stroke, and dysphagia. PAST SURGICAL HISTORY: He had a feeding tube, right [id number] amputation. ALLERGIES: No known drug allergies. MEDICATIONS: From the [facility], the patient is on hydrochlorothiazide 12.5, Tylenol p.r.n., amlodipine 5 mg daily, ascorbic acid 500 mg daily, Pulmicort twice a day, Lotrisone cream daily, Pepcid daily, hydralazine 25 mg 3 times daily, DuoNeb 4 times daily, lactobacillus probiotic one daily, Prevacid 30 mg daily, Xalatan eye drop both eyes, metoprolol 25 mg twice a day, Bactroban ointment, nystatin, artificial tears, [place] spray, multivitamin, tube feedings. FAMILY HISTORY: Unremarkable. SOCIAL HISTORY: She is in a [facility]. The patient is bedridden, has contractures. REVIEW OF SYMPTOMS: The patient is nonverbal. PHYSICAL EXAMINATION: VITAL SIGNS: At the time of admission, she has a temperature of 101, pulse 113, respirations 28, blood pressure 132/60, 95% on 3 liters. HEENT: Head is atraumatic. Pupils equal. Oral cavity: She cannot open the mouth. NECK: Supple. CHEST: Symmetrical. CARDIOVASCULAR: S1, S2. LUNGS: Few crackles at the bases. ABDOMEN: Feeding tube present. The patient has a scar in the lower abdomen. EXTERNAL GENITALIA: No Adan. EXTREMITIES: The patient has briefs. The patient has uymbk-fzt-lhyh amputation. Right stump looks fine. Left foot contracture of the flexion at the hip and the knee and there is no source on the left foot. The patient has a healed scar from the gluteal area. No open sores. LABORATORY DATA: Shows a white count of 22, hemoglobin 14, platelets 160. INR 1.2. Electrolytes show sodium 178, potassium 3.3, chloride 113, bicarb 30, anion gap 15, BUN 86, creatinine 2.6, glucose 115, AST 36, ALT 62, alk phos 121 and blood gas pH 7.42, pCO2 of 43, pO2 59, bicarbonate 27, 32% FiO2, 91% saturation. Urine, esterase was trace, WBC 1-4. Serology was positive for both influenza A and B. Chest x-ray shows slight pulmonary congestion. FINAL IMPRESSION: 1. Fever. 2. Influenza. The patient is positive for both A and B. 3. Possible aspiration pneumonia. 4. Hypernatremia. 5. Acute on chronic renal insufficiency. 6. Dysphagia. The patient has a feeding tube. 7. Hypertension. 8. Previous stroke. 9. General debility. PLAN: The patient was admitted to the [facility]. After cultures, the patient was started on antibiotics. We will change antibiotic to vancomycin and Zosyn to cover for healthcare-associated pneumonia. She was positive for influenza. We will start on Tamiflu 30 mg twice a day because of kidney failure at a lower dose, tube feedings, ID consultation, Renal consult, cautious hydration, monitor electrolytes periodically. Renal consult. The patient is a DNR. JENY CANTU MD DR: KLEBER/ria JOB#: [id number] / [id number]
[2019-02-12] MEDS ORDERED: ENOXAPARIN 40 MG/0.4 ML SYRINGE. SQ SCH (11:00)
[2019-02-12] MEDS: BUDESONIDE 0.5 MG/2 ML NEBU. NEB SCH ×2 (11:00→20:17)
[2019-02-12 11:15] VITALS: BP 119/43
--- NOTE | 2019-02-12 11:16 | PDOC ---
Infectious Disease Note Vital Sign Vital Signs Vital Signs Date Time Temp Pulse Resp B/P (MAP) Pulse Ox O2 Delivery O2 Flow Rate FiO2 02/12/19 09:25 119 101/61 02/12/19 07:30 101.4 20 99 Nasal Cannula 3.0 101.4 Labs Lab Laboratory Tests Test 02/11/19 11:10 02/11/19 15:20 02/11/19 19:40 02/12/19 04:00 Lactic Acid Level 2.5 mmol/L (0.4-2.0) 1.9 mmol/L (0.4-2.0) Influenza Type A Antigen Positive (NEGATIVE) Influenza Type B Antigen Positive (NEGATIVE) Sodium Level 174 mmol/L (136-145) Potassium Level 3.8 mmol/L (3.5-5.1) Chloride Level 135 mmol/L (98-107) Carbon Dioxide Level 26 mmol/L (21-32) Anion Gap 13 (6-14) Blood Urea Nitrogen 73 mg/dL (7-20) Creatinine 2.2 mg/dL (0.6-1.0) Estimated GFR (Cockcroft-Gault) 25.7 Glucose Level 88 mg/dL (70-99) Calcium Level 8.4 mg/dL (8.5-10.1) Micro CXR Impression: Slight pulmonary vasculature congestion may be present. No dense consolidation. Consider interval follow-up two-view chest x-ray exam for more complete assessment Microbiology 02/11/19 Blood Culture - Preliminary, Resulted NO GROWTH AFTER 1 DAY Objective Assessment Sepsis - POA 02/11 ? Influenza both A/B + 02/11? meaning Leukocytosis MICHELE ? UTI Fever hypernatremia Plan Plan of Care Agree with Tamiflu Dose Zyvox and Zosyn has tolerated (expect Cr to improve) F/u labs and cults D/w nursing Thank you # [id number] ROSANNA JACKMAN MD Feb 12, 2019 11:16
--- NOTE | 2019-02-12 11:55 | PDOC2 ---
MARY ORTIZ PIPE CONNECTOR 02/12/19 1155: CARDIAC CONSULT DATE OF CONSULT Date of Consult DATE: 02/12/19 TIME: 11:39 REASON FOR CONSULT Reason for Consult: Tachycardia REFERRING PHYSICIAN Referring Physician: Dr. Khan SOURCE Source: Chart review HISTORY OF PRESENT ILLNESS HISTORY OF PRESENT ILLNESS This is an 83 yo female who presented from nursing facility secondary to altered mental status and hypoxia. Initial labs showed leukocytosis, significant hypernatremia, and MICHELE. Is febrile. Was noted to be tachycardiac, which prompted this consult. Patient is presently non-verbal, HPI obtained form chart review. PAST MEDICAL HISTORY Cardiovascular: AFIB, HTN, Hyperlipidemia Pulmonary: Pneumonia CENTRAL NERVOUS SYSTEM: CVA GI: GERD, Other ( Dysphagia s/p feeding tube) Heme/Onc: Anemia NOS, Other (DVT) Psych: No pertinent hx Musculoskeletal: Osteoarthritis Rheumatologic: No pertinent hx Infectious disease: No pertinent hx ENT: No pertinent hx Renal/: No pertinent hx Endocrine: Hypothyroidism, Other (SLE) Dermatology: No pertinent hx PAST SURGICAL HISTORY Past Surgical History: Other FAMILY HISTORY Family History: Family History Unknown SOCIAL HISTORY ALCOHOL: none Lives: Alone CURRENT MEDICATIONS CURRENT MEDICATIONS Current Medications Medications (Trade) Dose Ordered Sig/Michelle Route PRN Reason Start Time Stop Time Status Last Admin Dose Admin Sodium Chloride 1,000 ml @ 125 mls/hr 1X ONCE IV 02/11/19 11:45 02/11/19 19:44 DC 02/11/19 11:45 Betamethasone/ Clotrimazole (Lotrisone) 1 renato BID TP 02/11/19 21:00 02/11/19 20:18 Mupirocin (Bactroban) 1 renato TID TP 02/11/19 21:00 02/11/19 20:18 Senna/Docusate Sodium (Senna Plus) 2 tab DAILY PO 02/12/19 09:00 02/12/19 09:24 Metoprolol Tartrate (Lopressor) 25 mg BID PO 02/11/19 21:00 02/12/19 09:25 Ascorbic Acid (Vitamin C) 500 mg DAILY PO 02/12/19 09:00 02/12/19 09:24 Multivitamins (Thera M Plus) 1 tab DAILY PO 02/12/19 09:00 02/12/19 09:24 Famotidine (Pepcid) 20 mg DAILY PO 02/12/19 09:00 4/1/19 09:26 Sodium Chloride 1,000 ml @ 75 mls/hr [id number] IV 02/11/19 19:30 02/12/19 06:18 DC 02/11/19 21:08 Dextrose/Sodium Chloride 1,000 ml @ 100 mls/hr Q10H IV 02/12/19 06:15 02/12/19 06:29 ALLERGIES ALLERGIES: Coded Allergies: I S O L A T I O N *CONTACT* (Verified Allergy, Unknown, 12/06/17) mrsa No Known Medication Allergies (Verified Allergy, Unknown, 12/06/17) ROS Review of System unobtainable PHYSICAL EXAM General: Alert, Other (non-verbal ) HEENT: Atraumatic Lungs: Other (tachypneic. expiratory wheezes) Heart: Regular rate (SR/ST), Other (distant heart tones) Abdomen: Soft Extremities: No edema, Other (contracted) Neuro: Sensation intact MUSCULOSKELETAL: Osteoarthritic changes both hands VITALS VITALS Vital Signs Date Time Temp Pulse Resp B/P (MAP) Pulse Ox O2 Delivery O2 Flow Rate FiO2 02/12/19 11:15 100.4 102 20 119/43 (68) 94 Nasal Cannula 3.0 100.4 LABS Lab: Laboratory Tests Test 02/11/19 15:20 02/11/19 19:40 02/12/19 04:00 Influenza Type A Antigen Positive (NEGATIVE) Influenza Type B Antigen Positive (NEGATIVE) Lactic Acid Level 1.9 mmol/L (0.4-2.0) Sodium Level 174 mmol/L (136-145) Potassium Level 3.8 mmol/L (3.5-5.1) Chloride Level 135 mmol/L (98-107) Carbon Dioxide Level 26 mmol/L (21-32) Anion Gap 13 (6-14) Blood Urea Nitrogen 73 mg/dL (7-20) Creatinine 2.2 mg/dL (0.6-1.0) Estimated GFR (Cockcroft-Gault) 25.7 Glucose Level 88 mg/dL (70-99) Calcium Level 8.4 mg/dL (8.5-10.1) ECHOCARDIOGRAM ECHOCARDIOGRAM <Conclusion> The left ventricle is normal size. Left ventricle systolic function is normal. The Ejection Fraction is 60-65%. There is no significant aortic valvular stenosis. Doppler and Color Flow revealed mild to moderate aortic regurgitation. Doppler and Color Flow revealed mild mitral valve regurgitation. Doppler and Color Flow revealed trace tricuspid regurgitation. The PA pressure was estimated at 22 mmHg. There is no evidence of significant pericardial effusion. DATE: 07/18/15 1610 ASSESSMENT/PLAN ASSESSMENT/PLAN 1. Acute hypoxic respiratory failure 2. Leukocytosis, lactic acidosis, fevers. ? sepsis. ID following 3. Influenza; A/B positive; Tamiflu 5. Tachycardia, sinus;. reactive 5. Severe hypernatremia 6. MICHELE on CKD 7. Dysphagia 8. Hypertension 9. Hyperlipidemia 10. H/o PAFIB; maintaining SR/ST 11. DVT s/p IVF Recommendations Check echo to assess LV systolic function Supportive care from a CV standpoint given comorbidities Treatment of Influenza as per PCP and ID SHAZIA MARINA MD 02/12/19 1902: CARDIAC CONSULT ASSESSMENT/PLAN ASSESSMENT/PLAN Patient seen and examine. Agree with CANINE ENFORCEMENT OFFICER's assessment and plan. 2D echo showed normal LVF Sinus tachy physiologic. No significant arrhythmias noted Continue current treatment of Influenza per IM No further cardiac workup is indicated Thank you for your consultation MARY ORTIZ APRN Feb 12, 2019 11:55 SHAZIA MARINA MD Feb 12, 2019 19:02
[2019-02-12] MEDS: OSELTAMIVIR 30 MG CAPSULE PO SCH (12:34)
[2019-02-12] MEDS: LACTOBACILLUS RHAMNOSUS GG 1 CAPSULE. PO SCH (12:34)
[2019-02-12] MEDS: amLODIPine BESYLATE 5 MG TABLET GT SCH (12:38)
[2019-02-12] MEDS: POLYVINYL ALCOHOL 1.4% OPHTH SOLUTION 15ML BOTTLE. OU SCH ×3 (12:39→21:57)
--- NOTE | 2019-02-12 14:14 | CARD ---
MR#: [id number] Date of Study: 02/12/2019 Ordering Physician: MARY ORTIZ, Referring Physician: Mike PARADA: Ginger Moyer RDCS APPROVED REPORT EXAM: Two-dimensional and M-mode echocardiogram with Doppler and color Doppler. Other Information Quality : Technically Limited Rhythm : TachycardiaTechnically limited study due to body habitus. INDICATION Tachycardia 2D DIMENSIONS RVDd2.8 (2.9-3.5cm)Left Atrium(2D)4.2 (1.6-4.0cm) IVSd1.1 (0.7-1.1cm)Aortic Root(2D)2.8 (2.0-3.7cm) LVDd4.2 (3.9-5.9cm)LVOT Diameter2.1 (1.8-2.4cm) PWd1.0 (0.7-1.1cm)LVDs2.6 (2.5-4.0cm) FS (%) 30.0 %SV53.9 ml LVEF(%)60.0 (>50%) Aortic Valve AoV Peak David.97.3cm/sAoV VTI13.8cm AO Peak GR.3.8mmHgLVOT VTI 7.56cm AO Mean GR.2mmHg Mitral Valve MV E Ofidzdsh76.7cm/sMV DECEL ICTI254bc MV A Mdlwdfoq27.8cm/sE/A Ratio0.8 TDI Lateral E' P. V7.08cm/sMedial E' P. V6.50cm/s E/Lateral E'10.4E/Medial E'11.3 Pulmonary Vein S1 Teiqwsld47.0cm/sS2 Laprqbfx78.55cm/s D2 Phvtfssb95.6cm/s LEFT VENTRICLE The left ventricle is normal size. There is normal left ventricular wall thickness. The left ventricu lar systolic function is normal. The Ejection Fraction is 55-60%. There is normal LV segmental wall m otion. Transmitral Doppler flow pattern is Grade I-abnormal relaxation pattern. RIGHT VENTRICLE The right ventricle is normal size. The right ventricular systolic function is normal. ATRIA The left atrium is mildly dilated. The right atrium size is normal. The interatrial septum is intact with no evidence for an atrial septal defect or patent foramen ovale as noted on 2-D or Doppler imagi ng. AORTIC VALVE The aortic valve is calcified but opens well. Doppler and Color Flow revealed mild aortic regurgitati on There is no significant aortic valvular stenosis. MITRAL VALVE The mitral valve is calcified but opens well. There is no evidence of mitral valve prolapse. There is no mitral valve stenosis. Doppler and Color Flow revealed no mitral valve regurgitation noted. TRICUSPID VALVE The tricuspid valve is normal in structure and function. Doppler and Color Flow revealed trace tricus pid regurgitation. There is no tricuspid valve stenosis. PULMONIC VALVE The pulmonic valve is not well visualized. Doppler and Color Flow revealed mild pulmonic valvular reg urgitation. There is no pulmonic valvular stenosis. GREAT VESSELS The aortic root is normal in size. The ascending aorta is normal in size. The IVC was not visualized. PERICARDIAL EFFUSION There is no evidence of significant pericardial effusion. Critical Notification Critical Value: No <Conclusion> The left ventricular systolic function is normal. The Ejection Fraction is 55-60%. There is normal LV segmental wall motion. Transmitral Doppler flow pattern is Grade I-abnormal relaxation pattern. Mild aortic regurgitation Trace tricuspid regurgitation. There is no evidence of significant pericardial effusion. Signed by : Tim Mcfadden, Electronically Approved : 02/12/2019 14:14:19
--- NOTE | 2019-02-12 14:27 | PDOC ---
Renal-Progress Notes Subjective Notes Notes NONE, CONFUSED History of Present Illness Hx of present illness IMPROVED Vitals Vitals Vital Signs Date Time Temp Pulse Resp B/P (MAP) Pulse Ox O2 Delivery O2 Flow Rate FiO2 02/12/19 12:38 102 119/43 02/12/19 11:47 Nasal Cannula 3.0 02/12/19 11:15 100.4 20 94 100.4 Weight Weight [ ] I.O. Intake and Output Intake and Output 02/12/19 07:00 Intake Total 1150 ml Output Total 0 ml Balance 1150 ml Intake Oral 0 ml IV Total 1150 ml Output Urine Total 0 ml # Voids 3 Labs Labs Laboratory Tests Test 02/11/19 15:20 02/11/19 19:40 02/12/19 04:00 Influenza Type A Antigen Positive (NEGATIVE) Influenza Type B Antigen Positive (NEGATIVE) Lactic Acid Level 1.9 mmol/L (0.4-2.0) Sodium Level 174 mmol/L (136-145) Potassium Level 3.8 mmol/L (3.5-5.1) Chloride Level 135 mmol/L (98-107) Carbon Dioxide Level 26 mmol/L (21-32) Anion Gap 13 (6-14) Blood Urea Nitrogen 73 mg/dL (7-20) Creatinine 2.2 mg/dL (0.6-1.0) Estimated GFR (Cockcroft-Gault) 25.7 Glucose Level 88 mg/dL (70-99) Calcium Level 8.4 mg/dL (8.5-10.1) Micro Micro Microbiology 02/11/19 Blood Culture - Preliminary, Resulted NO GROWTH AFTER 1 DAY Review of Systems Constitutional: yes: other (CONFUSED) Physical Exam General Appearance: no apparent distress Skin: warm Respiratory: decreased breath sounds Heart: S1S2 Abdomen: soft, bowel sounds present Genitourinary: bladder flat Extremities: pulses present Neurology: alert Musculoskeletal: Other Assessment Assessment IMP MICHELE-IMPROVING WITH CR DOWN TO 2.2-NO CKD INFLUENZA LEUCOCYTOSIS ACUTE RESP FAILURE HYPERNATREMIA DEHYDRATION PLAN HYDRATION ANTIBIOTICS WILL FOLLOW TARIK IRVIN MD Feb 12, 2019 14:27
[2019-02-12] MEDS: PIPERACILLIN/TAZOBACTAM 2.25 GM in IV NORMAL SALINE 50ML 50 ML IV SCH ×3 (14:49→23:28)
[2019-02-12] MEDS ORDERED: ACETAMINOPHEN 500 MG TABLET PO PRN ×2 (15:00)
--- NOTE | 2019-02-12 15:28 | NUR ---
Patient has febrile episodes, temp at 101.4 tachypneic at 28. Paged DR. Mccall at 1500; orders received for 2 blood cultures, urine culture, acetaminophen for fever and to insert bruner catheter. We'll continue to monitor patient.
[2019-02-12] MEDS: hydrALAZINE 25 MG TABLET PEG SCH ×2 (15:41→21:59)
[2019-02-12 15:42] VITALS: BP 113/62
[2019-02-12 16:46] LABS: CALCIUM 8.1 mg/dL (8.5-10.1); GFR 28.7; POTASSIUM 3.4 mmol/L (3.5-5.1)
--- NOTE | 2019-02-12 18:00 | NUR ---
Critical result of Na at [address] Roque at 1720, orders received to change IVF to D5W.
[2019-02-12] MEDS: IV DEXTROSE 5% 1,000 ML IV SCH (18:04)
[2019-02-12 19:15] VITALS: BP 131/59
[2019-02-12] MEDS ORDERED: METOPROLOL TART IMMED RELEASE 25 MG TABLET. PEG SCH (21:00)
[2019-02-12] MEDS ORDERED: NON FORMULARY ITEM (Budesonide (Pulmicort) 1 VIAL) NEB SCH (21:00)
[2019-02-12] MEDS ORDERED: FAMOTIDINE 20 MG TABLET. PO SCH (21:00)
[2019-02-12] MEDS ORDERED: CLOTRIMAZOLE/BETAMETH 1%-0.05% TOPICAL CREAM 15GM TUBE. TP SCH (21:00)
[2019-02-12] MEDS ORDERED: MUPIROCIN 2 % TOPICAL CREAM 15GM TUBE. TP SCH (21:00)
[2019-02-12] MEDS: LATANOPROST 0.005% OPHTH SOLUTION 2.5ML BOTTLE. OU SCH (21:57)
[2019-02-12] MEDS: NYSTATIN 100,000 UNIT/GM TOPICAL CREAM 15GM TUBE. TP SCH (21:57)
[2019-02-12 23:15] VITALS: BP 107/45
--- NOTE | 2019-02-13 02:59 | CONS ---
DATE OF CONSULTATION: 02/12/2019 The patient's room is 656. REQUESTING PHYSICIAN: Dr. Mccall. REASON FOR CONSULTATION: Sepsis. HISTORY OF PRESENT ILLNESS: The patient is an 83-year-old female with a history of previous CVA and currently has residual left-sided weakness, aphasia and dysphagia. She has a history of multiple infections including MRSA multidrug resistant Morganella, C. diff, history of previous urinary tract infections. However, she was brought to [facility] on 02/11/2019 secondary to fever and questionable pneumonia. At the long-term, she was found to be hypoxic, much short of air. She was sent to [facility]. On arrival, she had a temperature of 101.2. White blood cell count was 22.7. Her sodium was 138. Urine was collected, she had few bacteria, leukocyte esterase was trace, 1-4 wbc's. Influenza screen was obtained and was positive for both A and B. She has now been placed on Tamiflu and given a dose of ceftriaxone. A chest x-ray was obtained, showed some slight pulmonary vascular congestion. No dense consolidation. She was also given a dose of Rocephin. Currently, the patient is in bed. She will open her eye and moans. PAST MEDICAL HISTORY: Positive for previous UTI with Enterococcus pansensitive; history of MRSA; C. diff; history of wound infections with Proteus, MRSA and multidrug resistant Morganella, Klebsiella, Annika glabrata and Strep anginosus; has previous CVA with left-sided residual weakness, aphasia, dysphagia; hyperlipidemia; dementia; atrial fibrillation; hypertension; history of DVT; pulmonary hypertension; gastroesophageal reflux disease; arthritis; hypothyroidism; lupus; anemia and pressure ulcers. PAST SURGICAL HISTORY: Positive for right above-knee amputation, PEG tube placement and IVC filter placement. REVIEW OF SYSTEMS: Unobtainable. ALLERGIES: No known drug allergies. SOCIAL HISTORY: skilled nursing resident. She is bedridden. FAMILY HISTORY: Positive for hypertension as well as strokes. CURRENT MEDICATIONS: She has received Tamiflu, amlodipine, vitamin C, Pulmicort, Rocephin x 1, Catapres, Lovenox, Pepcid, hydralazine, lactobacillus, Prevacid, Xalatan drops, metoprolol, Tamiflu. Other meds are available and reviewed in the chart. PHYSICAL EXAMINATION: VITAL SIGNS: Current temperature is 101.4 orally, pulse 119, respirations 20, blood pressure 101/61, satting 99% on 3 liters. CONSTITUTIONAL: She is in no acute distress. HEENT: She did open her eyes. Again, she attempted to verbalize. She had normal conjunctivae. She would not open her mouth. NECK: Without JVD or fullness. LUNGS: Decreased in the bases. HEART: S1, S2. ABDOMEN: Obese, soft, nontender, no guarding, no grimacing. PEG tube is in place. 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 She has no clubbing, cyanosis or edema. SKIN: Warm to touch without signs of rash. NEUROLOGIC: She responds verbally by groaning. LABORATORY DATA: White count 22.7 on arrival, hemoglobin 13.8, platelets of 160 with 76 segs, 19 lymphs. Sodium today 174. Creatinine of 2.2, down from 2.6. Her AST was 62, ALT was 121 on arrival. Urinalysis and radiology reviewed in history of present illness. IMPRESSION: 1. Sepsis, present on admission on 02/11/2019. 2. Influenza both positive A and B from the , questionable meaning. 3. Leukocytosis. 4. Acute kidney injury. 5. Questionable urinary tract infection. 6. Fever. 7. Hypernatremia. RECOMMENDATIONS: Agree with Tamiflu. We will dose Zyvox and Zosyn as well to see if she tolerates this. I expect her creatinine to improve with hydration. Follow up labs and cultures. This was discussed with nursing. Thank you for allowing me to participate in this patient's care. Should you have any questions, please do not hesitate to contact me. We will check LFTs in the morning as well as routine labs. ROSANNA JACKMAN MD DR: SHANTE/ria JOB#: [id number] / [id number]
[2019-02-13 03:15] VITALS: BP 122/58
[2019-02-13] MEDS: IV DEXTROSE 5% 1,000 ML IV SCH ×2 (06:05→17:45)
[2019-02-13] MEDS: PIPERACILLIN/TAZOBACTAM 2.25 GM in IV NORMAL SALINE 50ML 50 ML IV SCH ×3 (06:05→17:26)
[2019-02-13 07:04] LABS: BASO # 0.1 x10^3/uL (0.0-0.2); BASO % 1 % (0-3); EOS # 0.2 x10^3/uL (0.0-0.7); EOS % 2 % (0-3); HEMATOCRIT 39.5 % (36.0-47.0); HEMOGLOBIN 11.7 g/dL (12.0-15.5); LYMPH % 10 % (24-48); MEAN CORPUSCULAR HEMOGLOBIN 28 pg (25-35); MEAN CORPUSCULAR HGB CONC 30 g/dL (31-37); MEAN CORPUSCULAR VOLUME 94 fL (79-100); MONO # 0.5 x10^3/uL (0.0-1.1); MONO % 5 % (0-9); NEUT # 8.1 x10^3uL (1.8-7.7); NEUT % 82 % (31-73); PLATELET COUNT 123 x10^3/uL (140-400); RED BLOOD COUNT 4.19 x10^6/uL (3.50-5.40); WHITE BLOOD COUNT 9.9 x10^3/uL (4.0-11.0)
[2019-02-13] MEDS: BUDESONIDE 0.5 MG/2 ML NEBU. NEB SCH ×2 (07:14→19:48)
[2019-02-13 07:30] VITALS: BP 120/55
[2019-02-13 07:31] LABS: CALCIUM 8.5 mg/dL (8.5-10.1); CREATININE 1.9 mg/dL (0.6-1.0); DIRECT BILIRUBIN 0.2 mg/dL (0.0-0.2); GFR 30.5; TOTAL BILIRUBIN 0.6 mg/dL (0.2-1.0); TOTAL PROTEIN 7.7 g/dL (6.4-8.2)
--- NOTE | 2019-02-13 07:56 | NUR ---
Critical result of Serum Na 160 and K 3.[address] Roque at 0754. Orders received to continue IVF and replace K 40 meq one dose.
[2019-02-13] MEDS ORDERED: POTASSIUM CHLORIDE 20 MEQ/15 ML ORAL LIQUID. PEG ONE (08:00)
[2019-02-13] MEDS ORDERED: MULTIVITAMINS THERAPEUTIC PEG SCH (09:00)
[2019-02-13] MEDS ORDERED: ASCORBIC ACID 500 MG TABLET PEG SCH (09:00)
[2019-02-13] MEDS: POLYVINYL ALCOHOL 1.4% OPHTH SOLUTION 15ML BOTTLE. OU SCH ×4 (09:31→21:38)
[2019-02-13] MEDS: SENNOSIDES/DOCUSATE 8.6/50MG TABLET. PO SCH (09:32)
[2019-02-13] MEDS: MULTIVITAMIN with MINERAL TABLET. PO SCH (09:32)
[2019-02-13] MEDS: LACTOBACILLUS RHAMNOSUS GG 1 CAPSULE. PO SCH (09:32)
[2019-02-13] MEDS: OSELTAMIVIR 30 MG CAPSULE PO SCH (09:32)
[2019-02-13] MEDS: FAMOTIDINE 20 MG TABLET. PO SCH (09:32)
[2019-02-13] MEDS: MUPIROCIN 2 % TOPICAL CREAM 15GM TUBE. TP SCH ×3 (09:33→21:38)
[2019-02-13] MEDS: NYSTATIN 100,000 UNIT/GM TOPICAL CREAM 15GM TUBE. TP SCH ×2 (09:33→21:39)
[2019-02-13] MEDS: ASCORBIC ACID 500 MG TABLET PO SCH (09:33)
[2019-02-13] MEDS: CLOTRIMAZOLE/BETAMETH 1%-0.05% TOPICAL CREAM 15GM TUBE. TP SCH ×2 (09:34→21:39)
[2019-02-13] MEDS: METOPROLOL TART IMMED RELEASE 25 MG TABLET. PO SCH ×2 (09:35→21:40)
[2019-02-13] MEDS: hydrALAZINE 25 MG TABLET PEG SCH ×2 (09:35→15:15)
[2019-02-13] MEDS: amLODIPine BESYLATE 5 MG TABLET GT SCH (09:36)
[2019-02-13] MEDS ORDERED: POTASSIUM CL 20MEQ IN D5W 1,000 ML IV SCH (10:00)
--- NOTE | 2019-02-13 10:06 | NUR ---
IP: Pt has had a hx of + mrsa screens since 2015 with most recent on 12/23/17. Pt to be in contact precautions until there are 2 negative screens 7 days apart. Addendum: 02/13/19 at 1011 by LUIS WALDRON RN Pt also + for influenza and requires droplet precautions for 5 days and 24 hours without a fever, whichever is longest.
--- NOTE | 2019-02-13 10:25 | PDOC ---
Infectious Disease Note Subjective Subjective nonverbal ROS ROS unobtainable Vital Sign Vital Signs Vital Signs Date Time Temp Pulse Resp B/P (MAP) Pulse Ox O2 Delivery O2 Flow Rate FiO2 02/13/19 09:36 85 120/55 02/13/19 07:30 98.9 26 100 Nasal Cannula 3.0 98.9 Physical Exam PHYSICAL EXAM CONSTITUTIONAL: She is in no acute distress. appears more comfortable HEENT: anicteric NECK: Without JVD or fullness. LUNGS: Decreased in the bases. HEART: S1, S2. ABDOMEN: Obese, soft, nontender, no guarding, no grimacing. PEG tube is in place. 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 She has no clubbing, cyanosis or edema. SKIN: Warm to touch without signs of rash. NEUROLOGIC: She is less responsive today. Labs Lab Laboratory Tests Test 02/12/19 16:10 02/13/19 06:50 Sodium Level 173 mmol/L (136-145) 160 mmol/L (136-145) Potassium Level 3.4 mmol/L (3.5-5.1) 3.0 mmol/L (3.5-5.1) Chloride Level 134 mmol/L (98-107) 123 mmol/L (98-107) Carbon Dioxide Level 23 mmol/L (21-32) 22 mmol/L (21-32) Anion Gap 16 (6-14) 15 (6-14) Blood Urea Nitrogen 55 mg/dL (7-20) 46 mg/dL (7-20) Creatinine 2.0 mg/dL (0.6-1.0) 1.9 mg/dL (0.6-1.0) Estimated GFR (Cockcroft-Gault) 28.7 30.5 Glucose Level 105 mg/dL (70-99) 162 mg/dL (70-99) Calcium Level 8.1 mg/dL (8.5-10.1) 8.5 mg/dL (8.5-10.1) White Blood Count 9.9 x10^3/uL (4.0-11.0) Red Blood Count 4.19 x10^6/uL (3.50-5.40) Hemoglobin 11.7 g/dL (12.0-15.5) Hematocrit 39.5 % (36.0-47.0) Mean Corpuscular Volume 94 fL (79-100) Mean Corpuscular Hemoglobin 28 pg (25-35) Mean Corpuscular Hemoglobin Concent 30 g/dL (31-37) Red Cell Distribution Width 18.0 % (11.5-14.5) Platelet Count 123 x10^3/uL (140-400) Neutrophils (%) (Auto) 82 % (31-73) Lymphocytes (%) (Auto) 10 % (24-48) Monocytes (%) (Auto) 5 % (0-9) Eosinophils (%) (Auto) 2 % (0-3) Basophils (%) (Auto) 1 % (0-3) Neutrophils # (Auto) 8.1 x10^3uL (1.8-7.7) Lymphocytes # (Auto) 1.0 x10^3/uL (1.0-4.8) Monocytes # (Auto) 0.5 x10^3/uL (0.0-1.1) Eosinophils # (Auto) 0.2 x10^3/uL (0.0-0.7) Basophils # (Auto) 0.1 x10^3/uL (0.0-0.2) Total Bilirubin 0.6 mg/dL (0.2-1.0) Direct Bilirubin 0.2 mg/dL (0.0-0.2) Aspartate Amino Transf (AST/SGOT) 22 U/L (15-37) Alanine Aminotransferase (ALT/SGPT) 30 U/L (14-59) Alkaline Phosphatase 105 U/L (46-116) Total Protein 7.7 g/dL (6.4-8.2) Albumin 2.0 g/dL (3.4-5.0) Micro CXR Impression: Slight pulmonary vasculature congestion may be present. No dense consolidation. Consider interval follow-up two-view chest x-ray exam for more complete assessment Microbiology 02/11/19 Blood Culture - Preliminary, Resulted NO GROWTH AFTER 1 DAY Objective Assessment Sepsis - POA 02/11 ? Influenza both A/B + 02/11? meaning Leukocytosis - better MICHELE -better ? UTI Fever hypernatremia - improving Plan Plan of Care Cont Tamiflu Cont Zyvox and Zosyn has tolerated (expect Cr to improve) F/u labs and cults D/w nursing ROSANNA JACKMAN MD Feb 13, 2019 10:25
--- NOTE | 2019-02-13 10:53 | PDOC ---
IM PROGRESS NOTES- Subjective Subjective Patient opens eyes and looks around but is nonverbal and confused. Unable to do systems review. As per staff she did not have any nausea or vomiting or dyspnea. Objective Vitals Vital Signs Date Time Temp Pulse Resp B/P (MAP) Pulse Ox O2 Delivery O2 Flow Rate FiO2 02/13/19 09:36 85 120/55 02/13/19 07:30 98.9 26 100 Nasal Cannula 3.0 98.9 Input & Output Intake and Output 02/13/19 07:00 Intake Total 0 ml Balance 0 ml Intake Oral 0 ml Physical Exam Physical Exam HEENT: Partial exam is unremarkable. Patient is not cooperative and is not opening her mouth. NECK: Supple. She is in mild respiratory distress. She is on oxygen by nasal cannula. CARDIOVASCULAR: S1, S2. LUNGS: Few crackles at the bases. ABDOMEN: Feeding tube present. The patient has a scar in the lower abdomen. EXTERNAL GENITALIA: No Adan. EXTREMITIES: The patient has briefs. The patient has uuelw-qvj-eymi amputation. Right stump looks fine. Left foot contracture of the flexion at the hip and the knee and there is no source on the left foot. The patient has a healed scar from the gluteal area. No open sores. Labs Laboratory Tests Test 02/11/19 11:10 02/11/19 15:20 02/11/19 19:40 02/12/19 04:00 Lactic Acid Level 2.5 mmol/L (0.4-2.0) 1.9 mmol/L (0.4-2.0) Influenza Type A Antigen Positive (NEGATIVE) Influenza Type B Antigen Positive (NEGATIVE) Sodium Level 174 mmol/L (136-145) Potassium Level 3.8 mmol/L (3.5-5.1) Chloride Level 135 mmol/L (98-107) Carbon Dioxide Level 26 mmol/L (21-32) Anion Gap 13 (6-14) Blood Urea Nitrogen 73 mg/dL (7-20) Creatinine 2.2 mg/dL (0.6-1.0) Estimated GFR (Cockcroft-Gault) 25.7 Glucose Level 88 mg/dL (70-99) Calcium Level 8.4 mg/dL (8.5-10.1) Test 02/12/19 16:10 02/13/19 06:50 Sodium Level 173 mmol/L (136-145) 160 mmol/L (136-145) Potassium Level 3.4 mmol/L (3.5-5.1) 3.0 mmol/L (3.5-5.1) Chloride Level 134 mmol/L (98-107) 123 mmol/L (98-107) Carbon Dioxide Level 23 mmol/L (21-32) 22 mmol/L (21-32) Anion Gap 16 (6-14) 15 (6-14) Blood Urea Nitrogen 55 mg/dL (7-20) 46 mg/dL (7-20) Creatinine 2.0 mg/dL (0.6-1.0) 1.9 mg/dL (0.6-1.0) Estimated GFR (Cockcroft-Gault) 28.7 30.5 Glucose Level 105 mg/dL (70-99) 162 mg/dL (70-99) Calcium Level 8.1 mg/dL (8.5-10.1) 8.5 mg/dL (8.5-10.1) White Blood Count 9.9 x10^3/uL (4.0-11.0) Red Blood Count 4.19 x10^6/uL (3.50-5.40) Hemoglobin 11.7 g/dL (12.0-15.5) Hematocrit 39.5 % (36.0-47.0) Mean Corpuscular Volume 94 fL (79-100) Mean Corpuscular Hemoglobin 28 pg (25-35) Mean Corpuscular Hemoglobin Concent 30 g/dL (31-37) Red Cell Distribution Width 18.0 % (11.5-14.5) Platelet Count 123 x10^3/uL (140-400) Neutrophils (%) (Auto) 82 % (31-73) Lymphocytes (%) (Auto) 10 % (24-48) Monocytes (%) (Auto) 5 % (0-9) Eosinophils (%) (Auto) 2 % (0-3) Basophils (%) (Auto) 1 % (0-3) Neutrophils # (Auto) 8.1 x10^3uL (1.8-7.7) Lymphocytes # (Auto) 1.0 x10^3/uL (1.0-4.8) Monocytes # (Auto) 0.5 x10^3/uL (0.0-1.1) Eosinophils # (Auto) 0.2 x10^3/uL (0.0-0.7) Basophils # (Auto) 0.1 x10^3/uL (0.0-0.2) Total Bilirubin 0.6 mg/dL (0.2-1.0) Direct Bilirubin 0.2 mg/dL (0.0-0.2) Aspartate Amino Transf (AST/SGOT) 22 U/L (15-37) Alanine Aminotransferase (ALT/SGPT) 30 U/L (14-59) Alkaline Phosphatase 105 U/L (46-116) Total Protein 7.7 g/dL (6.4-8.2) Albumin 2.0 g/dL (3.4-5.0) Laboratory Tests Test 02/12/19 16:10 02/13/19 06:50 Sodium Level 173 mmol/L (136-145) 160 mmol/L (136-145) Potassium Level 3.4 mmol/L (3.5-5.1) 3.0 mmol/L (3.5-5.1) Chloride Level 134 mmol/L (98-107) 123 mmol/L (98-107) Carbon Dioxide Level 23 mmol/L (21-32) 22 mmol/L (21-32) Anion Gap 16 (6-14) 15 (6-14) Blood Urea Nitrogen 55 mg/dL (7-20) 46 mg/dL (7-20) Creatinine 2.0 mg/dL (0.6-1.0) 1.9 mg/dL (0.6-1.0) Estimated GFR (Cockcroft-Gault) 28.7 30.5 Glucose Level 105 mg/dL (70-99) 162 mg/dL (70-99) Calcium Level 8.1 mg/dL (8.5-10.1) 8.5 mg/dL (8.5-10.1) White Blood Count 9.9 x10^3/uL (4.0-11.0) Red Blood Count 4.19 x10^6/uL (3.50-5.40) Hemoglobin 11.7 g/dL (12.0-15.5) Hematocrit 39.5 % (36.0-47.0) Mean Corpuscular Volume 94 fL (79-100) Mean Corpuscular Hemoglobin 28 pg (25-35) Mean Corpuscular Hemoglobin Concent 30 g/dL (31-37) Red Cell Distribution Width 18.0 % (11.5-14.5) Platelet Count 123 x10^3/uL (140-400) Neutrophils (%) (Auto) 82 % (31-73) Lymphocytes (%) (Auto) 10 % (24-48) Monocytes (%) (Auto) 5 % (0-9) Eosinophils (%) (Auto) 2 % (0-3) Basophils (%) (Auto) 1 % (0-3) Neutrophils # (Auto) 8.1 x10^3uL (1.8-7.7) Lymphocytes # (Auto) 1.0 x10^3/uL (1.0-4.8) Monocytes # (Auto) 0.5 x10^3/uL (0.0-1.1) Eosinophils # (Auto) 0.2 x10^3/uL (0.0-0.7) Basophils # (Auto) 0.1 x10^3/uL (0.0-0.2) Total Bilirubin 0.6 mg/dL (0.2-1.0) Direct Bilirubin 0.2 mg/dL (0.0-0.2) Aspartate Amino Transf (AST/SGOT) 22 U/L (15-37) Alanine Aminotransferase (ALT/SGPT) 30 U/L (14-59) Alkaline Phosphatase 105 U/L (46-116) Total Protein 7.7 g/dL (6.4-8.2) Albumin 2.0 g/dL (3.4-5.0) Meds Current Medications Acetaminophen (Tylenol) 500 mg PRN Q6HRS PRN PO FEVER; Start 02/12/19 at 15:00; Stop 02/12/19 at 15:08; Status DC Acetaminophen (Tylenol) 500 mg PRN Q6HRS PRN PO FEVER Last administered on at 15:41; Start 02/12/19 at 15:00 Amlodipine Besylate (Norvasc) 5 mg DAILY GT Last administered on 02/13/19at 09:36 ; Start 02/12/19 at 11:00 Artificial Tears (Artificial Tears) 1 drop QID OU Last administered on at 09:31; Start 02/12/19 at 13:00 Ascorbic Acid (Vitamin C) 500 mg DAILY PEG ; Start 02/13/19 at 09:00; Status UNV Betamethasone/ Clotrimazole (Lotrisone) 1 renato BID TP ; Start 02/12/19 at 21:00; Status UNV Budesonide (Pulmicort) 0.5 mg RTBID NEB Last administered on 02/13/19at 07:14; Start 02/12/19 at 11:00 Dextrose 1,000 ml @ 100 mls/hr Q10H IV Last administered on 02/13/19at 06:05; Start 02/12/19 at 18:00; Stop 02/13/19 at 09:10; Status DC Enoxaparin Sodium (Lovenox 40mg Syringe) 30 mg Q24H SQ Last administered on 02/12at 12:35; Start 02/12/19 at 11:00 Famotidine (Pepcid) 20 mg HS PO ; Start 02/12/19 at 21:00; Status UNV Hydralazine HCl (Apresoline) 25 mg TID PEG Last administered on 02/13/19at 09:35 ; Start 02/12/19 at 14:00 Lactobacillus Rhamnosus (Culturelle) 1 cap DAILY PO Last administered on at 09:32; Start 02/12/19 at 11:00 Latanoprost (Xalatan) 1 drop QHS OU Last administered on 02/12/19at 21:57; Start 02/12/19 at 21:00 Linezolid/Dextrose 300 ml @ 300 mls/hr Q12HR IV Last administered on 02/13/19at 09:31; Start 02/12/19 at 12:00 Metoprolol Tartrate (Lopressor) 25 mg BID PEG ; Start 02/12/19 at 21:00; Status UNV Mupirocin (Bactroban) 1 renato BID TP ; Start 02/12/19 at 21:00; Status UNV Non-Formulary Medication (Budesonide (Pulmicort)) 1 vial BID NEB ; Start at 21:00; Status UNV Non-Formulary Medication ([Multivitamins,Therapeutic] ) 5 ml DAILY PEG ; Start 02/13/19 at 09:00; Status UNV Nystatin (Mycostatin) 1 renato BID TP Last administered on 02/13/19at 09:33; Start 02/12/19 at 21:00 Oseltamivir Phosphate (Tamiflu) 30 mg DAILY PO Last administered on 02/13/19at 09 :32; Start 02/12/19 at 11:00; Stop 02/17/19 at 10:59 Piperacillin Sod/ Tazobactam Sod 2.25 gm/Sodium Chloride 50 ml @ 100 mls/hr Q6HRS IV Last administered on 02/13/19at 06:05; Start 02/12/19 at 12:00 Potassium Chloride/Dextrose 1,000 ml @ 100 mls/hr Q10H IV ; Start 02/13/19 at 10 :00 Potassium Chloride/Water 100 ml @ 100 mls/hr Q1H IV ; Start 02/13/19 at 10:00; Stop 02/13/19 at 13:59 Potassium Chloride (KCl Oral Soln) 40 meq 1X ONCE PEG Last administered on 02/13at 09:30; Start 02/13/19 at 08:00; Stop 02/13/19 at 08:03; Status DC Assessment Assessment 1. Fever. 2. Influenza. The patient is positive for both A and B. 3. Possible aspiration pneumonia. 4. Hypernatremia. 5. Acute on chronic renal insufficiency. 6. Dysphagia. The patient has a feeding tube. 7. Hypertension. 8. Previous stroke. 9. General debility. PLAN: The patient was admitted to the [facility]. After cultures, the patient was started on antibiotics. We will change antibiotic to vancomycin and Zosyn to cover for healthcare-associated pneumonia. She was positive for influenza. We will start on Tamiflu 30 mg twice a day because of kidney failure at a lower dose, tube feedings, ID consultation, Renal consult, cautious hydration, monitor electrolytes periodically. Renal consult. The patient is a DNR. Her sodium is decreased to 160. Potassium is 3.0 BUN 46 and creatinine has decreased to 1.9 hemoglobin is decreased to 9.7 WBC count is 9.9. Hypernatremia- improving Hypokalemia replace potassium. Prognosis of this patient is very poor. Plan Plan For more details regarding further plans, please refer to the orders. ANASATSIA VELÁSQUEZ MD Feb 13, 2019 10:53
[2019-02-13 11:15] VITALS: BP 110/54
[2019-02-13] MEDS: ENOXAPARIN 30 MG/0.3 ML SYRINGE. SQ SCH (11:43)
[2019-02-13] MEDS: POTASSIUM CHLORIDE 10MEQ 100 ML IV SCH ×4 (12:00→14:55)
--- NOTE | 2019-02-13 13:27 | PDOC ---
Renal-Progress Notes Subjective Notes Notes NOTHING NEW History of Present Illness Hx of present illness STABLE Vitals Vitals Vital Signs Date Time Temp Pulse Resp B/P (MAP) Pulse Ox O2 Delivery O2 Flow Rate FiO2 02/13/19 11:15 98.5 71 28 110/54 (72) 96 Nasal Cannula 3.0 98.5 Weight Weight [ ] I.O. Intake and Output Intake and Output 02/13/19 07:00 Intake Total 0 ml Balance 0 ml Intake Oral 0 ml Labs Labs Laboratory Tests Test 02/12/19 16:10 02/13/19 06:50 Sodium Level 173 mmol/L (136-145) 160 mmol/L (136-145) Potassium Level 3.4 mmol/L (3.5-5.1) 3.0 mmol/L (3.5-5.1) Chloride Level 134 mmol/L (98-107) 123 mmol/L (98-107) Carbon Dioxide Level 23 mmol/L (21-32) 22 mmol/L (21-32) Anion Gap 16 (6-14) 15 (6-14) Blood Urea Nitrogen 55 mg/dL (7-20) 46 mg/dL (7-20) Creatinine 2.0 mg/dL (0.6-1.0) 1.9 mg/dL (0.6-1.0) Estimated GFR (Cockcroft-Gault) 28.7 30.5 Glucose Level 105 mg/dL (70-99) 162 mg/dL (70-99) Calcium Level 8.1 mg/dL (8.5-10.1) 8.5 mg/dL (8.5-10.1) White Blood Count 9.9 x10^3/uL (4.0-11.0) Red Blood Count 4.19 x10^6/uL (3.50-5.40) Hemoglobin 11.7 g/dL (12.0-15.5) Hematocrit 39.5 % (36.0-47.0) Mean Corpuscular Volume 94 fL (79-100) Mean Corpuscular Hemoglobin 28 pg (25-35) Mean Corpuscular Hemoglobin Concent 30 g/dL (31-37) Red Cell Distribution Width 18.0 % (11.5-14.5) Platelet Count 123 x10^3/uL (140-400) Neutrophils (%) (Auto) 82 % (31-73) Lymphocytes (%) (Auto) 10 % (24-48) Monocytes (%) (Auto) 5 % (0-9) Eosinophils (%) (Auto) 2 % (0-3) Basophils (%) (Auto) 1 % (0-3) Neutrophils # (Auto) 8.1 x10^3uL (1.8-7.7) Lymphocytes # (Auto) 1.0 x10^3/uL (1.0-4.8) Monocytes # (Auto) 0.5 x10^3/uL (0.0-1.1) Eosinophils # (Auto) 0.2 x10^3/uL (0.0-0.7) Basophils # (Auto) 0.1 x10^3/uL (0.0-0.2) Total Bilirubin 0.6 mg/dL (0.2-1.0) Direct Bilirubin 0.2 mg/dL (0.0-0.2) Aspartate Amino Transf (AST/SGOT) 22 U/L (15-37) Alanine Aminotransferase (ALT/SGPT) 30 U/L (14-59) Alkaline Phosphatase 105 U/L (46-116) Total Protein 7.7 g/dL (6.4-8.2) Albumin 2.0 g/dL (3.4-5.0) Micro Micro Microbiology 02/11/19 Blood Culture - Preliminary, Resulted NO GROWTH AFTER 2 DAYS Review of Systems Constitutional: yes: other (CONFUSED) Physical Exam General Appearance: no apparent distress Skin: warm Respiratory: decreased breath sounds Heart: S1S2 Abdomen: soft, bowel sounds present Genitourinary: bladder flat Extremities: pulses present Neurology: alert Musculoskeletal: Osteoarthritis Assessment Assessment IMP MICHELE-IMPROVING WITH CR DOWN TO 1.9-NO CKD INFLUENZA LEUCOCYTOSIS-BETTER ACUTE RESP FAILURE HYPERNATREMIA-SLOWLY IMPROVING HYPOKALEMIA DEHYDRATION PLAN HYDRATION-D5W REPLACE K ANTIBIOTICS WILL FOLLOW TARIK IRVIN MD Feb 13, 2019 13:26
--- NOTE | 2019-02-13 14:46 | NUR ---
SW following pt for anticipated dc needs. Chart reviewed. Spoke with Kayla at [facility] and confirmed pt is LTC resident. Detective Bureau Chief, Clau will continue to follow pt. SW will be available for any needs.
--- NOTE | 2019-02-13 14:51 | NUR ---
Spoke with Dr. Khan at 1000 when he was rounding the patient, clarified potassium correction since the patient had KCL solution given per gastric tube. This nurse was instructed to give only 2 bags of 10 meqs potassium chloride.
[2019-02-13 15:08] VITALS: BP 109/48
--- NOTE | 2019-02-13 18:30 | NUR ---
Spoke with Dr. Roque at 1652 about patients potassium and sodium correction. This nurse was instructed to continue D5W as IVF.
[2019-02-13 19:15] VITALS: BP 115/36
[2019-02-13] MEDS: LATANOPROST 0.005% OPHTH SOLUTION 2.5ML BOTTLE. OU SCH (21:39)
[2019-02-13 23:15] VITALS: BP 116/70
[2019-02-14] MEDS: PIPERACILLIN/TAZOBACTAM 2.25 GM in IV NORMAL SALINE 50ML 50 ML IV SCH ×2 (00:59→06:21)
[2019-02-14] MEDS: hydrALAZINE 25 MG TABLET PEG SCH ×4 (01:01→22:09)
[2019-02-14] MEDS: METOPROLOL TART IMMED RELEASE 25 MG TABLET. PO SCH ×3 (01:04→22:10)
[2019-02-14 03:15] VITALS: BP 117/55
[2019-02-14 04:30] LABS: BASO # 0.1 x10^3/uL (0.0-0.2); BASO % 1 % (0-3); EOS # 0.3 x10^3/uL (0.0-0.7); EOS % 3 % (0-3); HEMATOCRIT 39.9 % (36.0-47.0); LYMPH # 1.4 x10^3/uL (1.0-4.8); LYMPH % 17 % (24-48); MEAN CORPUSCULAR HEMOGLOBIN 28 pg (25-35); MEAN CORPUSCULAR HGB CONC 30 g/dL (31-37); MEAN CORPUSCULAR VOLUME 93 fL (79-100); MONO # 0.4 x10^3/uL (0.0-1.1); MONO % 5 % (0-9); NEUT # 6.3 x10^3uL (1.8-7.7); NEUT % 75 % (31-73); PLATELET COUNT 124 x10^3/uL (140-400); RED BLOOD COUNT 4.31 x10^6/uL (3.50-5.40); RED CELL DISTRIBUTION WIDTH 17.7 % (11.5-14.5); WHITE BLOOD COUNT 8.4 x10^3/uL (4.0-11.0)
[2019-02-14 04:51] LABS: ALBUMIN/GLOBULIN RATIO 0.3 (1.0-1.7); CALCIUM 8.6 mg/dL (8.5-10.1); CREATININE 1.5 mg/dL (0.6-1.0); MAGNESIUM 2.8 mg/dL (1.8-2.4); PHOSPHORUS 2.2 mg/dL (2.6-4.7); POTASSIUM 3.4 mmol/L (3.5-5.1); TOTAL BILIRUBIN 0.5 mg/dL (0.2-1.0)
[2019-02-14 07:00] VITALS: BP 124/46
[2019-02-14] MEDS: FAMOTIDINE 20 MG TABLET. PO SCH (08:09)
[2019-02-14] MEDS: MUPIROCIN 2 % TOPICAL CREAM 15GM TUBE. TP SCH ×3 (08:09→22:10)
[2019-02-14] MEDS: MULTIVITAMIN with MINERAL TABLET. PO SCH (08:10)
[2019-02-14] MEDS: ASCORBIC ACID 500 MG TABLET PO SCH (08:10)
[2019-02-14] MEDS: LACTOBACILLUS RHAMNOSUS GG 1 CAPSULE. PO SCH (08:10)
[2019-02-14] MEDS: IV DEXTROSE 5% 1,000 ML IV SCH (08:11)
[2019-02-14] MEDS: SENNOSIDES/DOCUSATE 8.6/50MG TABLET. PO SCH (08:11)
[2019-02-14] MEDS: OSELTAMIVIR 30 MG CAPSULE PO SCH (08:11)
[2019-02-14] MEDS: amLODIPine BESYLATE 5 MG TABLET GT SCH (08:11)
[2019-02-14] MEDS: POLYVINYL ALCOHOL 1.4% OPHTH SOLUTION 15ML BOTTLE. OU SCH ×4 (08:12→22:10)
[2019-02-14] MEDS: NYSTATIN 100,000 UNIT/GM TOPICAL CREAM 15GM TUBE. TP SCH ×2 (09:00→22:10)
[2019-02-14] MEDS: CLOTRIMAZOLE/BETAMETH 1%-0.05% TOPICAL CREAM 15GM TUBE. TP SCH ×2 (09:00→22:10)
[2019-02-14] MEDS: BUDESONIDE 0.5 MG/2 ML NEBU. NEB SCH ×2 (09:31→19:17)
--- NOTE | 2019-02-14 09:51 | PDOC ---
PROGRESS NOTES Subjective Subjective non verbal Objective Objective Vital Signs Date Time Temp Pulse Resp B/P (MAP) Pulse Ox O2 Delivery O2 Flow Rate FiO2 02/14/19 09:32 97 Nasal Cannula 3.0 02/14/19 08:11 69 124/46 02/14/19 07:00 99.0 18 99.0 Intake and Output 02/14/19 06:59 Intake Total 1820 ml Output Total 1100 ml Balance 720 ml Intake Oral 0 ml Tube Feeding 1560 ml Other 260 ml Output Urine Total 1100 ml # Bowel Movements 4 Physical Exam Abdomen: Soft Heart: Regular rate (SR/ST), Other (distant heart tones) Extremities: No edema, Other (contracted) General: No acute distress, Other (non-verbal ) HEENT: Atraumatic Lungs: Other (tachypneic. expiratory wheezes) MUSCULOSKELETAL: Osteoarthritic changes both hands Neuro: Sensation intact COMMENT contractures Diagnosis Problem List Problems Medical Problems: (1) Acute renal failure Status: Acute (2) Dehydration Status: Acute (3) Hypernatremia Status: Acute Assessment Assessment 1. Fever and sepsis. 2. Influenza. The patient is positive for both A and B. 3. Possible aspiration pneumonia. 4. Hypernatremia. 5. Acute on chronic renal insufficiency. 6. Dysphagia. The patient has a feeding tube. 7. Hypertension. 8. Previous stroke. 9. General debility. PLAN: Na 154 improving . cr 1.5 improving influenza A&B both positive. iv zyvox+zosyn. continue iv fluids and tube feedings. cxr today Plan Plan of Care Problems Medical Problems: (1) Acute renal failure Status: Acute (2) Dehydration Status: Acute (3) Hypernatremia Status: Acute Comment Review of Relevant I have reviewed the following items linda (where applicable) has been applied. Labs Laboratory Tests Test 02/14/19 04:06 White Blood Count 8.4 x10^3/uL (4.0-11.0) Red Blood Count 4.31 x10^6/uL (3.50-5.40) Hemoglobin 12.0 g/dL (12.0-15.5) Hematocrit 39.9 % (36.0-47.0) Mean Corpuscular Volume 93 fL (79-100) Mean Corpuscular Hemoglobin 28 pg (25-35) Mean Corpuscular Hemoglobin Concent 30 g/dL (31-37) Red Cell Distribution Width 17.7 % (11.5-14.5) Platelet Count 124 x10^3/uL (140-400) Neutrophils (%) (Auto) 75 % (31-73) Lymphocytes (%) (Auto) 17 % (24-48) Monocytes (%) (Auto) 5 % (0-9) Eosinophils (%) (Auto) 3 % (0-3) Basophils (%) (Auto) 1 % (0-3) Neutrophils # (Auto) 6.3 x10^3uL (1.8-7.7) Lymphocytes # (Auto) 1.4 x10^3/uL (1.0-4.8) Monocytes # (Auto) 0.4 x10^3/uL (0.0-1.1) Eosinophils # (Auto) 0.3 x10^3/uL (0.0-0.7) Basophils # (Auto) 0.1 x10^3/uL (0.0-0.2) Sodium Level 154 mmol/L (136-145) Potassium Level 3.4 mmol/L (3.5-5.1) Chloride Level 117 mmol/L (98-107) Carbon Dioxide Level 21 mmol/L (21-32) Anion Gap 16 (6-14) Blood Urea Nitrogen 30 mg/dL (7-20) Creatinine 1.5 mg/dL (0.6-1.0) Estimated GFR (Cockcroft-Gault) 40.0 BUN/Creatinine Ratio 20 (6-20) Glucose Level 144 mg/dL (70-99) Calcium Level 8.6 mg/dL (8.5-10.1) Phosphorus Level 2.2 mg/dL (2.6-4.7) Magnesium Level 2.8 mg/dL (1.8-2.4) Total Bilirubin 0.5 mg/dL (0.2-1.0) Aspartate Amino Transf (AST/SGOT) 31 U/L (15-37) Alanine Aminotransferase (ALT/SGPT) 29 U/L (14-59) Alkaline Phosphatase 120 U/L (46-116) Total Protein 8.0 g/dL (6.4-8.2) Albumin 2.0 g/dL (3.4-5.0) Albumin/Globulin Ratio 0.3 (1.0-1.7) Microbiology 02/12/19 Blood Culture - Preliminary, Resulted NO GROWTH AFTER 1 DAY Medications Current Medications Dextrose 1,000 ml @ 100 mls/hr Q10H IV Last administered on 02/14/19at 08:11; Start 02/13/19 at 17:45 Enoxaparin Sodium (Lovenox 30mg Syringe) 30 mg Q24H SQ Last administered on 02/13at 11:43; Start 02/13/19 at 12:00 Potassium Chloride/Dextrose 1,000 ml @ 100 mls/hr Q10H IV ; Start 02/13/19 at 10 :00; Stop 02/13/19 at 17:36; Status DC Potassium Chloride/Water 100 ml @ 100 mls/hr Q1H IV Last administered on at 14:55; Start 02/13/19 at 10:00; Stop 02/13/19 at 13:59; Status DC Vitals/I & O Vital Sign - Last 24 Hours 02/13/19 02/13/19 02/13/19 02/13/19 11:15 15:08 15:15 19:15 Temp 98.5 99.1 98.7 98.5 99.1 98.7 Pulse 71 75 75 88 Resp 28 26 28 B/P (MAP) 110/54 (72) 109/48 (68) 109/48 115/36 (62) Pulse Ox 96 97 96 O2 Delivery Nasal Cannula Nasal Cannula Nasal Cannula O2 Flow Rate 3.0 3.0 3.0 02/13/19 02/13/19 02/13/19 02/14/19 19:48 20:10 23:15 01:01 Temp 98.3 98.3 Pulse 86 86 Resp 24 B/P (MAP) 116/70 (85) 116/70 Pulse Ox 99 O2 Delivery Nasal Cannula Nasal Cannula Nasal Cannula O2 Flow Rate 3.0 3.0 3.0 02/14/19 02/14/19 02/14/19 02/14/19 01:04 03:15 07:00 08:10 Temp 98.3 99.0 98.3 99.0 Pulse 86 67 69 69 Resp 24 18 B/P (MAP) 116/70 117/55 (75) 124/46 (72) 124/46 Pulse Ox 99 98 O2 Delivery Nasal Cannula Room Air O2 Flow Rate 3.0 02/14/19 02/14/19 02/14/19 08:10 08:11 09:32 Pulse 69 69 B/P (MAP) 124/46 124/46 Pulse Ox 97 O2 Delivery Nasal Cannula O2 Flow Rate 3.0 Intake and Output 02/13/19 02/13/19 02/14/19 14:59 22:59 06:59 Intake Total 210 ml 1610 ml Output Total 350 ml 750 ml Balance 210 ml 1260 ml -750 ml JENY CANTU MD Feb 14, 2019 09:51
--- NOTE | 2019-02-14 09:54 | PDOC ---
Infectious Disease Note Subjective Subjective Alert - nonverbal ROS ROS unable to obtain Vital Sign Vital Signs Vital Signs Date Time Temp Pulse Resp B/P (MAP) Pulse Ox O2 Delivery O2 Flow Rate FiO2 02/14/19 09:32 97 Nasal Cannula 3.0 02/14/19 08:11 69 124/46 02/14/19 07:00 99.0 18 99.0 Physical Exam PHYSICAL EXAM CONSTITUTIONAL: She is in no acute distress. appears more comfortable, Alert and looks better HEENT: anicteric NECK: Without JVD or fullness. LUNGS: Decreased in the bases. HEART: S1, S2. ABDOMEN: Obese, soft, nontender, no guarding, no grimacing. PEG tube is in place. 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 She has no clubbing, cyanosis or edema. SKIN: Warm to touch without signs of rash. NEUROLOGIC: She is less responsive today. Labs Lab Laboratory Tests Test 02/14/19 04:06 White Blood Count 8.4 x10^3/uL (4.0-11.0) Red Blood Count 4.31 x10^6/uL (3.50-5.40) Hemoglobin 12.0 g/dL (12.0-15.5) Hematocrit 39.9 % (36.0-47.0) Mean Corpuscular Volume 93 fL (79-100) Mean Corpuscular Hemoglobin 28 pg (25-35) Mean Corpuscular Hemoglobin Concent 30 g/dL (31-37) Red Cell Distribution Width 17.7 % (11.5-14.5) Platelet Count 124 x10^3/uL (140-400) Neutrophils (%) (Auto) 75 % (31-73) Lymphocytes (%) (Auto) 17 % (24-48) Monocytes (%) (Auto) 5 % (0-9) Eosinophils (%) (Auto) 3 % (0-3) Basophils (%) (Auto) 1 % (0-3) Neutrophils # (Auto) 6.3 x10^3uL (1.8-7.7) Lymphocytes # (Auto) 1.4 x10^3/uL (1.0-4.8) Monocytes # (Auto) 0.4 x10^3/uL (0.0-1.1) Eosinophils # (Auto) 0.3 x10^3/uL (0.0-0.7) Basophils # (Auto) 0.1 x10^3/uL (0.0-0.2) Sodium Level 154 mmol/L (136-145) Potassium Level 3.4 mmol/L (3.5-5.1) Chloride Level 117 mmol/L (98-107) Carbon Dioxide Level 21 mmol/L (21-32) Anion Gap 16 (6-14) Blood Urea Nitrogen 30 mg/dL (7-20) Creatinine 1.5 mg/dL (0.6-1.0) Estimated GFR (Cockcroft-Gault) 40.0 BUN/Creatinine Ratio 20 (6-20) Glucose Level 144 mg/dL (70-99) Calcium Level 8.6 mg/dL (8.5-10.1) Phosphorus Level 2.2 mg/dL (2.6-4.7) Magnesium Level 2.8 mg/dL (1.8-2.4) Total Bilirubin 0.5 mg/dL (0.2-1.0) Aspartate Amino Transf (AST/SGOT) 31 U/L (15-37) Alanine Aminotransferase (ALT/SGPT) 29 U/L (14-59) Alkaline Phosphatase 120 U/L (46-116) Total Protein 8.0 g/dL (6.4-8.2) Albumin 2.0 g/dL (3.4-5.0) Albumin/Globulin Ratio 0.3 (1.0-1.7) Micro CXR Impression: Slight pulmonary vasculature congestion may be present. No dense consolidation. Consider interval follow-up two-view chest x-ray exam for more complete assessment Microbiology 02/11/19 Blood Culture - Preliminary, Resulted NO GROWTH AFTER 1 DAY Objective Assessment Sepsis - POA 02/11 - better. Cults neg ? Influenza both A/B + 02/11? meaning Leukocytosis - better MICHELE -better ? UTI Fever hypernatremia - improving Plan Plan of Care Cont Tamiflu Cont Zyvox per tube and increase Zosyn has tolerated (expect Cr to improve) wean soon if cults neg F/u labs and cults D/w nursing ROSANNA JACKMAN MD Feb 14, 2019 09:54
[2019-02-14 10:52] VITALS: BP 106/42
[2019-02-14] MEDS ORDERED: PIPERACILLIN/TAZOBACTAM 3.375 GM in IV NORMAL SALINE 50ML 50 ML IV SCH (12:00)
--- NOTE | 2019-02-14 12:37 | PDOC ---
Renal-Progress Notes Subjective Notes Notes NONE History of Present Illness Hx of present illness IMPROVED Vitals Vitals Vital Signs Date Time Temp Pulse Resp B/P (MAP) Pulse Ox O2 Delivery O2 Flow Rate FiO2 02/14/19 10:52 98.5 70 19 106/42 (63) 98 Room Air 98.5 02/14/19 09:32 3.0 Weight Weight [ ] I.O. Intake and Output Intake and Output 02/14/19 07:00 Intake Total 1820 ml Output Total 1100 ml Balance 720 ml Intake Oral 0 ml Tube Feeding 1560 ml Other 260 ml Output Urine Total 1100 ml # Bowel Movements 4 Labs Labs Laboratory Tests Test 02/14/19 04:06 White Blood Count 8.4 x10^3/uL (4.0-11.0) Red Blood Count 4.31 x10^6/uL (3.50-5.40) Hemoglobin 12.0 g/dL (12.0-15.5) Hematocrit 39.9 % (36.0-47.0) Mean Corpuscular Volume 93 fL (79-100) Mean Corpuscular Hemoglobin 28 pg (25-35) Mean Corpuscular Hemoglobin Concent 30 g/dL (31-37) Red Cell Distribution Width 17.7 % (11.5-14.5) Platelet Count 124 x10^3/uL (140-400) Neutrophils (%) (Auto) 75 % (31-73) Lymphocytes (%) (Auto) 17 % (24-48) Monocytes (%) (Auto) 5 % (0-9) Eosinophils (%) (Auto) 3 % (0-3) Basophils (%) (Auto) 1 % (0-3) Neutrophils # (Auto) 6.3 x10^3uL (1.8-7.7) Lymphocytes # (Auto) 1.4 x10^3/uL (1.0-4.8) Monocytes # (Auto) 0.4 x10^3/uL (0.0-1.1) Eosinophils # (Auto) 0.3 x10^3/uL (0.0-0.7) Basophils # (Auto) 0.1 x10^3/uL (0.0-0.2) Sodium Level 154 mmol/L (136-145) Potassium Level 3.4 mmol/L (3.5-5.1) Chloride Level 117 mmol/L (98-107) Carbon Dioxide Level 21 mmol/L (21-32) Anion Gap 16 (6-14) Blood Urea Nitrogen 30 mg/dL (7-20) Creatinine 1.5 mg/dL (0.6-1.0) Estimated GFR (Cockcroft-Gault) 40.0 BUN/Creatinine Ratio 20 (6-20) Glucose Level 144 mg/dL (70-99) Calcium Level 8.6 mg/dL (8.5-10.1) Phosphorus Level 2.2 mg/dL (2.6-4.7) Magnesium Level 2.8 mg/dL (1.8-2.4) Total Bilirubin 0.5 mg/dL (0.2-1.0) Aspartate Amino Transf (AST/SGOT) 31 U/L (15-37) Alanine Aminotransferase (ALT/SGPT) 29 U/L (14-59) Alkaline Phosphatase 120 U/L (46-116) Total Protein 8.0 g/dL (6.4-8.2) Albumin 2.0 g/dL (3.4-5.0) Albumin/Globulin Ratio 0.3 (1.0-1.7) Micro Micro Microbiology 02/12/19 Blood Culture - Preliminary, Resulted NO GROWTH AFTER 1 DAY 02/12/19 Urine Culture - Final, Complete 02/12/19 Urine Culture Result 1 (JANIS) - Final, Complete Review of Systems Constitutional: yes: other (CONFUSED) Physical Exam General Appearance: no apparent distress Skin: warm Respiratory: decreased breath sounds Heart: S1S2 Abdomen: soft, bowel sounds present Genitourinary: bladder flat Extremities: pulses present Neurology: alert Musculoskeletal: Osteoarthritis Assessment Assessment IMP MICHELE-IMPROVING WITH CR DOWN TO 1.5-NO CKD INFLUENZA LEUCOCYTOSIS-BETTER ACUTE RESP FAILURE HYPERNATREMIA-SLOWLY IMPROVING HYPOKALEMIA HYPOPHOSPHATEMIA DEHYDRATION PLAN HYDRATION-D5W REPLACE K AND PO4 ANTIBIOTICS WILL FOLLOW TARIK IRVIN MD Feb 14, 2019 12:37
[2019-02-14] MEDS ORDERED: POTASSIUM PHOSPHATE DIBASIC 13.6 MMOL in IV DEXTROSE 5% 100ML 100 ML IV SCH (13:30)
[2019-02-14 14:21] VITALS: BP 106/47
[2019-02-14] MEDS: ENOXAPARIN 30 MG/0.3 ML SYRINGE. SQ SCH (15:17)
[2019-02-14 19:53] VITALS: BP 129/61
[2019-02-14] MEDS: LINEZOLID 600 MG TABLET PEG SCH (22:07)
[2019-02-14] MEDS: HYDROcodone/APAP 7.5/325MG 1 TAB TABLET PO PRN (22:08)
[2019-02-14 22:10] VITALS: BP 119/67
[2019-02-14] MEDS: LATANOPROST 0.005% OPHTH SOLUTION 2.5ML BOTTLE. OU SCH (22:10)
[2019-02-14] MEDS: AMOXICILLIN/CLAV 400MG/57MG 5 ML ORAL.SUSP. PEG SCH (22:31)
[2019-02-15 03:15] VITALS: BP 130/59
[2019-02-15] MEDS: HYDROcodone/APAP 7.5/325MG 1 TAB TABLET PO PRN (04:25)
[2019-02-15 07:51] VITALS: BP 124/63
[2019-02-15] MEDS: BUDESONIDE 0.5 MG/2 ML NEBU. NEB SCH (08:00)
--- NOTE | 2019-02-15 08:25 | PDOC ---
Infectious Disease Note Subjective Subjective Alert - nonverbal ROS ROS unobtainable Vital Sign Vital Signs Vital Signs Date Time Temp Pulse Resp B/P (MAP) Pulse Ox O2 Delivery O2 Flow Rate FiO2 02/15/19 07:51 98.0 68 20 124/63 (83) 99 Nasal Cannula 3.0 98.0 Physical Exam PHYSICAL EXAM CONSTITUTIONAL: She is in no acute distress. appears more comfortable, Alert and looks better. Moans with repositioning HEENT: anicteric NECK: Without JVD or fullness. LUNGS: Decreased in the bases. HEART: S1, S2. ABDOMEN: Obese, soft, nontender, no guarding, no grimacing. PEG tube is in place. 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 She has no clubbing, cyanosis or edema. SKIN: Warm to touch without signs of rash. NEUROLOGIC: She is less responsive today. Labs Micro CXR Impression: Slight pulmonary vasculature congestion may be present. No dense consolidation. Consider interval follow-up two-view chest x-ray exam for more complete assessment Microbiology 02/11/19 Blood Culture - Preliminary, Resulted NO GROWTH AFTER 1 DAY Objective Assessment Sepsis - POA 02/11 - better. Cults neg ? Influenza both A/B + 02/11? meaning Leukocytosis - better MICHELE -better ? UTI Fever hypernatremia - improving Plan Plan of Care Would complete Tamiflu course Lost IV access so augmentin per tube started 02/14 and zyvox cont - Complete 4 more days and then d/c Ok to transfer from ID standpoint D/w nursing ROSANNA JACKMAN MD Feb 15, 2019 08:25
--- NOTE | 2019-02-15 09:06 | PDOC ---
PROGRESS NOTES Subjective Subjective no fever Objective Objective Vital Signs Date Time Temp Pulse Resp B/P (MAP) Pulse Ox O2 Delivery O2 Flow Rate FiO2 02/15/19 08:47 99 Nasal Cannula 3.0 02/15/19 07:51 98.0 68 20 124/63 (83) 98.0 Intake and Output 02/15/19 07:00 Intake Total 1229 ml Output Total 1900 ml Balance -671 ml Intake Oral 0 ml Tube Feeding 1204 ml Other 25 ml Output Urine Total 1900 ml # Bowel Movements 7 Physical Exam Abdomen: Soft Heart: Regular rate (SR/ST), Other (distant heart tones) Extremities: No edema, Other (contracted) General: No acute distress, Other (non-verbal ) HEENT: Atraumatic Lungs: Other (tachypneic. expiratory wheezes) MUSCULOSKELETAL: Osteoarthritic changes both hands Neuro: Sensation intact COMMENT contractures Diagnosis Problem List Problems Medical Problems: (1) Acute renal failure Status: Acute (2) Dehydration Status: Acute (3) Hypernatremia Status: Acute Assessment Assessment 1. Fever and sepsis. 2. Influenza. The patient is positive for both A and B. 3. Possible aspiration pneumonia. 4. Hypernatremia. 5. Acute on chronic renal insufficiency. 6. Dysphagia. The patient has a feeding tube. 7. Hypertension. 8. Previous stroke. 9. General debility. PLAN: NO iv access changed to po /peg meds d/c back to [place] poor prognosis tube feedings. Na 154 improving . cr 1.5 improving influenza A&B both positive. po augmentin+zyvox for 4 days Plan Plan of Care Problems Medical Problems: (1) Acute renal failure Status: Acute (2) Dehydration Status: Acute (3) Hypernatremia Status: Acute Comment Review of Relevant I have reviewed the following items linda (where applicable) has been applied. Labs Microbiology 02/12/19 Blood Culture - Preliminary, Resulted NO GROWTH AFTER 2 DAYS 02/12/19 Urine Culture - Final, Complete 02/12/19 Urine Culture Result 1 (JANIS) - Final, Complete Medications Current Medications Amoxicillin/ Clavulanate Potassium (Augmentin 400-57mg/5ml Susp) 10 ml Q12HR PEG Last administered on 02/14/19at 22:31; Start 02/14/19 at 21:00 Linezolid (Zyvox) 600 mg BID PEG Last administered on 02/14/19at 22:07; Start 02/14/19 at 21:00 Piperacillin Sod/ Tazobactam Sod 3.375 gm/Sodium Chloride 50 ml @ 100 mls/hr Q6HRS IV ; Start 02/14/19 at 12:00; Stop 02/14/19 at 14:25; Status DC Potassium Phosphate 13.6 mmol/Dextrose 104.5333 ml @ 52.267 m... Q2H IV ; Start 02/14/19 at 13:30; Stop 02/14/19 at 14:25; Status DC Vitals/I & O Vital Sign - Last 24 Hours 02/14/19 02/14/19 02/14/19 02/14/19 09:32 10:52 13:19 14:21 Temp 98.5 98.4 98.5 98.4 Pulse 70 68 Resp 19 20 B/P (MAP) 106/42 (63) 106/47 (66) Pulse Ox 97 98 97 O2 Delivery Nasal Cannula Room Air Nasal Cannula Room Air O2 Flow Rate 3.0 3.0 02/14/19 02/14/19 02/14/19 02/14/19 15:18 19:19 19:53 20:00 Temp 98.4 98.4 Pulse 68 76 Resp 16 B/P (MAP) 106/47 129/61 (83) Pulse Ox 98 98 O2 Delivery Nasal Cannula Room Air Nasal Cannula O2 Flow Rate 3.0 3.0 02/14/19 02/14/19 02/14/19 02/14/19 22:08 22:09 22:10 22:10 Temp 98.9 98.9 Pulse 76 76 73 Resp 20 B/P (MAP) 129/61 129/61 119/67 (84) Pulse Ox 97 O2 Delivery Nasal Cannula Room Air O2 Flow Rate 3.0 02/15/19 02/15/19 02/15/19 02/15/19 03:15 04:25 05:27 07:51 Temp 98.3 98.0 98.3 98.0 Pulse 77 68 Resp 16 20 B/P (MAP) 130/59 (82) 124/63 (83) Pulse Ox 96 99 O2 Delivery Room Air Nasal Cannula Nasal Cannula Nasal Cannula O2 Flow Rate 3.0 3.0 3.0 02/15/19 08:47 Pulse Ox 99 O2 Delivery Nasal Cannula O2 Flow Rate 3.0 Intake and Output 02/14/19 02/14/19 02/15/19 15:00 23:00 07:00 Intake Total 400 ml 829 ml 0 ml Output Total 1400 ml 500 ml Balance 400 ml -571 ml -500 ml JENY CANTU MD Feb 15, 2019 09:06
[2019-02-15] MEDS ORDERED: OSEL30CA PO (09:11)
[2019-02-15] MEDS ORDERED: AMOX400S PEG (09:11)
[2019-02-15] MEDS ORDERED: LINE600T PEG (09:11)
--- NOTE | 2019-02-15 09:13 | SNU/HH DC ---
DISCHARGE ORDERS DISCHARGE INFORMATION: DISCHARGE DATE: Feb 15, 2019 FINAL DIAGNOSIS Problems Medical Problems: (1) Acute renal failure Status: Acute (2) Dehydration Status: Acute (3) Hypernatremia Status: Acute CONDITION ON DISCHARGE: Stable CODE STATUS: Code Status: DNR/DNI POST DISCHARGE ORDERS: ACTIVITY ORDERS: Resume previous activity DIET AFTER DISCHARGE: tube feedings ,resume WOUND/INCISION CARE: Change dressing, Reinforce dressing PRN, Other, see below OTHER ORDERS: dressing change to sacral wound daily with aquacel TREATMENT/EQUIPMENT ORDERS: ADAPTIVE EQUIPMENT NEEDED: None RESPIRATORY EQUIPMENT NEEDED: Oxygen DISCHARGE MEDICATIONS: Home Meds Active Scripts Oseltamivir Phosphate (TAMIFLU) 30 Mg Capsule, 30 MG PO DAILY for flu for 2 Days , #2 CAP Prov:JENY CANTU MD 02/15/19 Linezolid (ZYVOX) 600 Mg Tablet, 600 MG PEG BID for pneumonia for 4 Days, #8 TAB Prov:JENY CANTU MD 02/15/19 Amoxicillin/Potassium Clav (AMOX TR-K CLV 400-57/5 SUSP) 400 Mg/5 Ml Susp.recon , 10 ML PEG Q12HR for pneumonia for 4 Days, MISC Prov:JENY CANTU MD 02/15/19 Polyvinyl Alcohol (ARTIFICIAL TEARS) 1 Drop Drops, 1 DROP OU QID, #1 BOT Prov:IDALIA DIANE 07/22/15 [Multivitamins,Therapeutic] 5 ML LIQUID No Conflict Check, 5 ML PEG DAILY, LIQUID Prov:ROXIANA 07/22/15 Latanoprost (XALATAN) 1 Drop Drops, 1 DROP OU HS, #1 BOT Prov:IDALIA DIANE 07/22/15 Ascorbic Acid (VITAMIN C) 500 Mg Tablet, 500 MG PEG DAILY, #30 TAB Prov:IDALIA DIANE 07/22/15 Reported Medications Nystatin (NYSTATIN) 15 Gm Cream..g., 1 MARILU TP BID for irritation, #30 GM 10/01/18 Budesonide (PULMICORT) 0.25 Mg/2 Ml Ampul.neb, 1 VIAL NEB BID for asthma, #30 VIAL 10/01/18 Famotidine (FAMOTIDINE) 20 Mg Tablet, 20 MG PO HS for reflux, TAB 10/01/18 Ipratropium/Albuterol Sulfate (DUONEB 0.5-3(2.5) MG/3 ML) 3 Ml Ampul.neb, 3 ML NEB PRN QID PRN for SHORTNESS OF BREATH, EACH 12/05/17 Lactobacillus Acidophilus (PROBIOTIC) 1 Each Capsule, 1 EACH GT DAILY, CAP 11/16/17 Clotrimazole/Betamethasone Dip (LOTRISONE CREAM) 15 Gm Cream..g., 1 MARILU TP BID, #45 GM 10/20/16 Sodium Chloride (OCEAN) 104 Ml [place], 104 ML NS TID PRN for SEE COMMENTS, SPRAY 10/20/16 Metoprolol Tartrate (METOPROLOL TARTRATE) 25 Mg Tablet, 25 MG PEG BID for FOR HYPERTENSION, #60 TAB 0 Refills 10/17/15 Hydralazine Hcl (HYDRALAZINE HCL) 25 Mg Tablet, 25 MG PEG TID, TAB 10/17/15 Acetaminophen (TYLENOL) 325 Mg Tablet, 1 TAB PO PRN Q6HRS PRN for PAIN, #30 TAB 10/17/15 Amlodipine Besylate (AMLODIPINE BESYLATE) 5 Mg Tablet, 5 MG GT DAILY, TAB 10/17/15 Discontinued Reported Medications Lansoprazole (PREVACID) 30 Mg Tab.rap.dr, 1 TAB PEG PRN DAILY PRN for reflux 10/01/18 Hydrochlorothiazide (HYDROCHLOROTHIAZIDE TABLET) 12.5 Mg Tablet, 1 TAB PEG DAILY for diuretic 10/01/18 Mupirocin Calcium (BACTROBAN CREAM) 15 Gm Cream..g., 1 MARILU TP BID, #30 GM 10/20/16 JENY CANTU MD Feb 15, 2019 09:13
[2019-02-15] MEDS: SENNOSIDES/DOCUSATE 8.6/50MG TABLET. PO SCH (09:40)
[2019-02-15] MEDS: OSELTAMIVIR 30 MG CAPSULE PO SCH (09:40)
[2019-02-15] MEDS: LINEZOLID 600 MG TABLET PEG SCH (09:40)
[2019-02-15] MEDS: LACTOBACILLUS RHAMNOSUS GG 1 CAPSULE. PO SCH (09:40)
[2019-02-15] MEDS: MULTIVITAMIN with MINERAL TABLET. PO SCH (09:41)
[2019-02-15] MEDS: ASCORBIC ACID 500 MG TABLET PO SCH (09:41)
[2019-02-15] MEDS: amLODIPine BESYLATE 5 MG TABLET GT SCH (09:41)
[2019-02-15] MEDS: hydrALAZINE 25 MG TABLET PEG SCH (09:42)
[2019-02-15] MEDS: POLYVINYL ALCOHOL 1.4% OPHTH SOLUTION 15ML BOTTLE. OU SCH (09:43)
[2019-02-15] MEDS: AMOXICILLIN/CLAV 400MG/57MG 5 ML ORAL.SUSP. PEG SCH (09:43)
[2019-02-15] MEDS: MUPIROCIN 2 % TOPICAL CREAM 15GM TUBE. TP SCH (09:43)
[2019-02-15] MEDS: FAMOTIDINE 20 MG TABLET. PO SCH (09:43)
[2019-02-15] MEDS: NYSTATIN 100,000 UNIT/GM TOPICAL CREAM 15GM TUBE. TP SCH (09:43)
[2019-02-15] MEDS: METOPROLOL TART IMMED RELEASE 25 MG TABLET. PO SCH (09:43)
[2019-02-15] MEDS: CLOTRIMAZOLE/BETAMETH 1%-0.05% TOPICAL CREAM 15GM TUBE. TP SCH (09:43)
[2019-02-15 10:01] LABS: BASO % 1 % (0-3); EOS # 0.2 x10^3/uL (0.0-0.7); EOS % 3 % (0-3); HEMATOCRIT 41.1 % (36.0-47.0); HEMOGLOBIN 12.5 g/dL (12.0-15.5); LYMPH # 2.1 x10^3/uL (1.0-4.8); LYMPH % 25 % (24-48); MEAN CORPUSCULAR HEMOGLOBIN 28 pg (25-35); MEAN CORPUSCULAR HGB CONC 30 g/dL (31-37); MEAN CORPUSCULAR VOLUME 92 fL (79-100); MONO # 0.5 x10^3/uL (0.0-1.1); MONO % 6 % (0-9); NEUT # 5.4 x10^3uL (1.8-7.7); NEUT % 66 % (31-73); RED BLOOD COUNT 4.46 x10^6/uL (3.50-5.40); RED CELL DISTRIBUTION WIDTH 17.3 % (11.5-14.5); WHITE BLOOD COUNT 8.2 x10^3/uL (4.0-11.0)
[2019-02-15 10:04] LABS: PLATELET COUNT 158 x10^3/uL (140-400)
[2019-02-15 10:06] LABS: CALCIUM 9.2 mg/dL (8.5-10.1); CREATININE 1.1 mg/dL (0.6-1.0); GFR 57.3; PHOSPHORUS 2.5 mg/dL (2.6-4.7); POTASSIUM 3.6 mmol/L (3.5-5.1)
--- NOTE | 2019-02-15 10:26 | PDOC ---
SUBJECTIVE ROS Non verbal , stable, Likely dc to facility as per PC and ID OBJECTIVE Vital Signs Vital Signs Date Time Temp Pulse Resp B/P (MAP) Pulse Ox O2 Delivery O2 Flow Rate FiO2 02/15/19 09:43 68 124/63 02/15/19 08:47 99 Nasal Cannula 3.0 02/15/19 07:51 98.0 20 98.0 I & 0 Intake and Output 02/15/19 06:59 Intake Total 1229 ml Output Total 1900 ml Balance -671 ml Intake Oral 0 ml Tube Feeding 1204 ml Other 25 ml Output Urine Total 1900 ml # Bowel Movements 7 PHYSICAL EXAM Physical Exam Gen: no acute distress. HEENT: anicteric NECK: Without JVD or fullness. LUNGS: Decreased in the bases. HEART: S1, S2. ABDOMEN: Obese, soft, nontender, PEG tube is in place. EXTREMITIES: Right above-knee amputation. no edema. SKIN: No rash. NEUROLOGIC: Non verbal DIAGNOSIS/ASSESSMENT Assessment & Plan MICHELE- Improved to1.1 Sec to Dehydration Hypernatremia - Improved with IV D5 Still not normal Plan to dc to facility,Continue water flushes through PEG (currently on 200 ml Q 6 hrs) Discussed with RN at bedside Influenza On tamiflu Acute Resp failure Hypokalemia - normal K COMMENT/RELEVANT DATA Meds Current Medications Medications (Trade) Dose Ordered Sig/Michelle Start Time Stop Time Status Last Admin Dose Admin Acetaminophen (Tylenol) 500 mg PRN Q6HRS PRN 02/12/19 15:00 02/12/19 15:41 500 MG Acetaminophen/ Hydrocodone Bitart (Lortab 7.5/325) 1 tab PRN Q6HRS PRN 02/11/19 18:00 02/15/19 04:25 1 TAB Albuterol Sulfate (Ventolin Neb Soln) 2.5 mg PRN Q6HRS PRN 02/12/19 10:15 Amlodipine Besylate (Norvasc) 5 mg DAILY 02/12/19 11:00 02/15/19 09:41 5 MG Amoxicillin/ Clavulanate Potassium (Augmentin 400-57mg/5ml Susp) 10 ml Q12HR 02/14/19 21:00 02/15/19 09:43 10 ML Artificial Tears (Artificial Tears) 1 drop QID 02/12/19 13:00 02/15/19 09:43 1 DROP Ascorbic Acid (Vitamin C) 500 mg DAILY 02/13/19 09:00 UNV Betamethasone/ Clotrimazole (Lotrisone) 1 renato BID 02/12/19 21:00 UNV Budesonide (Pulmicort) 0.5 mg RTBID 02/12/19 11:00 02/15/19 08:00 0.5 MG Ceftriaxone Sodium (Rocephin) 1 gm 1X ONCE 02/11/19 11:30 02/11/19 11:31 DC 02/11/19 11:58 1 GM Clonidine HCl (Catapres) 0.1 mg PRN Q6HRS PRN 02/11/19 17:30 Dextrose 1,000 ml @ 100 mls/hr Q10H 02/13/19 17:45 02/14/19 14:25 DC 02/14/19 08:11 100 MLS/HR Dextrose/Sodium Chloride 1,000 ml @ 100 mls/hr Q10H 02/12/19 06:15 02/12/19 17:25 DC 02/12/19 06:29 100 MLS/HR Enoxaparin Sodium (Lovenox 30mg Syringe) 30 mg Q24H 02/13/19 12:00 02/14/19 15:17 30 MG Enoxaparin Sodium (Lovenox 40mg Syringe) 30 mg Q24H 02/12/19 11:00 02/13/19 11:25 DC 02/12/19 12:35 30 MG Famotidine (Pepcid) 20 mg HS 02/12/19 21:00 UNV Hydralazine HCl (Apresoline) 25 mg TID 02/12/19 14:00 02/15/19 09:42 25 MG Lactobacillus Rhamnosus (Culturelle) 1 cap DAILY 02/12/19 11:00 02/15/19 09:40 1 CAP Lansoprazole (Prevacid) 30 mg PRN DAILY PRN 02/12/19 10:00 UNV Latanoprost (Xalatan) 1 drop QHS 02/12/19 21:00 02/14/19 22:10 1 DROP Linezolid (Zyvox) 600 mg BID 02/14/19 21:00 02/15/19 09:40 600 MG Linezolid/Dextrose 300 ml @ 300 mls/hr Q12HR 02/12/19 12:00 02/14/19 09:54 DC 02/13/19 21:38 300 MLS/HR Loperamide HCl (Imodium) 2 mg PRN Q6HRS PRN 02/11/19 17:30 Metoprolol Tartrate (Lopressor) 25 mg BID 02/12/19 21:00 UNV Multivitamins (Thera M Plus) 1 tab DAILY 02/12/19 09:00 02/15/19 09:41 1 TAB Mupirocin (Bactroban) 1 renato BID 02/12/19 21:00 UNV Non-Formulary Medication (Budesonide (Pulmicort)) 1 vial BID 02/12/19 21:00 UNV Non-Formulary Medication ([Multivitamins,Therapeutic] ) 5 ml DAILY 02/13/19 09:00 UNV Nystatin (Mycostatin) 1 renato BID 02/12/19 21:00 02/15/19 09:43 1 RENATO Oseltamivir Phosphate (Tamiflu) 30 mg DAILY 02/12/19 11:00 02/17/19 10:59 02/15/19 09:40 30 MG Piperacillin Sod/ Tazobactam Sod 2.25 gm/Sodium Chloride 50 ml @ 100 mls/hr Q6HRS 02/12/19 12:00 02/14/19 09:53 DC 02/14/19 06:21 100 MLS/HR Piperacillin Sod/ Tazobactam Sod 3.375 gm/Sodium Chloride 50 ml @ 100 mls/hr Q6HRS 02/14/19 12:00 02/14/19 14:25 DC Potassium Chloride/Dextrose 1,000 ml @ 100 mls/hr Q10H 02/13/19 10:00 02/13/19 17:36 DC Potassium Chloride/Water 100 ml @ 100 mls/hr Q1H 02/13/19 10:00 02/13/19 13:59 DC 02/13/19 14:55 100 MLS/HR Potassium Phosphate 13.6 mmol/Dextrose 104.5333 ml @ 52.267 m... Q2H 02/14/19 13:30 02/14/19 14:25 DC Potassium Chloride (KCl Oral Soln) 40 meq 1X ONCE 02/13/19 08:00 02/13/19 08:03 DC 02/13/19 09:30 40 MEQ Senna/Docusate Sodium (Senna Plus) 2 tab DAILY 02/12/19 09:00 02/15/19 09:40 2 TAB Sodium Chloride (Saline Mist Nasal) 1 renato PRN TID PRN 02/12/19 10:15 Lab Laboratory Tests Test 02/15/19 09:35 White Blood Count 8.2 x10^3/uL (4.0-11.0) Red Blood Count 4.46 x10^6/uL (3.50-5.40) Hemoglobin 12.5 g/dL (12.0-15.5) Hematocrit 41.1 % (36.0-47.0) Mean Corpuscular Volume 92 fL (79-100) Mean Corpuscular Hemoglobin 28 pg (25-35) Mean Corpuscular Hemoglobin Concent 30 g/dL (31-37) Red Cell Distribution Width 17.3 % (11.5-14.5) Platelet Count 158 x10^3/uL (140-400) Neutrophils (%) (Auto) 66 % (31-73) Lymphocytes (%) (Auto) 25 % (24-48) Monocytes (%) (Auto) 6 % (0-9) Eosinophils (%) (Auto) 3 % (0-3) Basophils (%) (Auto) 1 % (0-3) Neutrophils # (Auto) 5.4 x10^3uL (1.8-7.7) Lymphocytes # (Auto) 2.1 x10^3/uL (1.0-4.8) Monocytes # (Auto) 0.5 x10^3/uL (0.0-1.1) Eosinophils # (Auto) 0.2 x10^3/uL (0.0-0.7) Basophils # (Auto) 0.0 x10^3/uL (0.0-0.2) Sodium Level 154 mmol/L (136-145) Potassium Level 3.6 mmol/L (3.5-5.1) Chloride Level 119 mmol/L (98-107) Carbon Dioxide Level 21 mmol/L (21-32) Anion Gap 14 (6-14) Blood Urea Nitrogen 19 mg/dL (7-20) Creatinine 1.1 mg/dL (0.6-1.0) Estimated GFR (Cockcroft-Gault) 57.3 Glucose Level 120 mg/dL (70-99) Calcium Level 9.2 mg/dL (8.5-10.1) Phosphorus Level 2.5 mg/dL (2.6-4.7) Magnesium Level 3.0 mg/dL (1.8-2.4) Results All relevant outside records, renal labs, imaging studies, telemetry/EKG's were reviewed. EVY HARRIS MD Feb 15, 2019 10:26
[2019-02-15 10:27] VITALS: BP 137/72
--- NOTE | 2019-02-15 12:19 | NUR ---
Discharge Note: pt discharged to [facility], pt transported by EMS, pt stable upon discharge, pt left with bruner cath in place, report given to Maricruz TUCKER at [facility] Discharge instructions and discharge home medications reviewed with Other facility and a copy given. All questions have been answered and understanding verbalized. Patient discharged to [facility] with EMS transport accompanied by no family.
--- NOTE | 2019-02-19 16:05 | PDOC ---
Provider Note Provider Note Discharge summary dictated. #[id number] JENY CANTU MD Feb 19, 2019 16:05
--- NOTE | 2019-02-19 23:55 | DS ---
DATE OF DISCHARGE: 02/15/2019 REASON FOR ADMISSION TO THE HOSPITAL: Fever, leukocytosis, sepsis and influenza A and B lung infection. PROCEDURES DONE: Echocardiogram. HOSPITAL COURSE: The patient is an 83-year-old female from the sn[facility]. She is bedridden, had a feeding tube and she also has a history of hypertension, previous stroke and a right [id number] amputation. She came with fever with leukocytosis, white count was elevated to 2000. The patient was started on broad-spectrum antibiotics, Zyvox and Zosyn, seen by Infectious Disease. The patient had influenza A and B are both positive. Chest x-ray, infiltrate in the lung. Blood cultures were negative. The patient continues to have fevers after 2 days, it improved and it was thought probably the patient had influenza A lung infection, secondary lung infection causing sepsis and responded to antibiotics. The patient was given Tamiflu as well as oral antibiotics to finish up the course. The patient at one time had electrolyte imbalance, sodium 174, BUN 73 and creatinine 2.2. Was given IV fluids, seen by Nephrology at the time of discharge, sodium came down to 154, creatinine 1.1 and BUN 19. FINAL IMPRESSION: 1. Acute sepsis. 2. Influenza A and B lung infection. 3. Secondary bacterial infection superimposed and influenza, suspect gram negative to gram positive. 4. Acute kidney failure. 5. Hypertension. 6. Previous stroke. 7. Feeding tube. 8. Hypernatremia. PLAN: At this time, the patient was discharged to snf, finishing one more week of oral antibiotics with Augmentin; Tamiflu, 2 more days left and follow with electrolytes and CBC at the snf. JENY CANTU MD DR: KLEBER/ria JOB#: [id number] / [id number]
== END 2019-02-15 12:28 | disposition home or self-care (01) | DRG 871 ==
LOC: ER 09:19 → 6 SOUTH 11:30
PROVIDERS: ADMIT Internal Medicine; ATTEND Internal Medicine
DX: A41.9 Sepsis, unspecified organism (principal); J96.01 Acute respiratory failure with hypoxia; J10.00 Influenza due to other identified influenza virus with unspecified type of pneumonia; N17.9 Acute kidney failure, unspecified; E87.0 Hyperosmolality and hypernatremia; I69.354 Hemiplegia and hemiparesis following cerebral infarction affecting left non-dominant side; N39.0 Urinary tract infection, site not specified; E86.0 Dehydration; N18.9 Chronic kidney disease, unspecified; E03.9 Hypothyroidism, unspecified; E78.5 Hyperlipidemia, unspecified; E83.39 Other disorders of phosphorus metabolism; E87.6 Hypokalemia; F03.90 Unspecified dementia, unspecified severity, without behavioral disturbance, psychotic disturbance, mood disturbance, and anxiety; I27.20 Pulmonary hypertension, unspecified; I48.91 Unspecified atrial fibrillation; I69.320 Aphasia following cerebral infarction; M32.9 Systemic lupus erythematosus, unspecified; K21.9 Gastro-esophageal reflux disease without esophagitis; R13.10 Dysphagia, unspecified; Z66 Do not resuscitate; Z74.01 Bed confinement status; Z82.3 Family history of stroke; Z82.49 Family history of ischemic heart disease and other diseases of the circulatory system; Z86.14 Personal history of Methicillin resistant Staphylococcus aureus infection; Z86.718 Personal history of other venous thrombosis and embolism; Z89.611 Acquired absence of right leg above knee; Z87.440 Personal history of urinary (tract) infections; Z93.1 Gastrostomy status; I10 Essential (primary) hypertension
CPT/HCPCS: 36415; 36600; 71045; 80048; 80053; 80076; 81001; 82805; 83605; 83735; 83880; 84100; 84484; 85007; 85025; 85610; 87040; 87086; 87804; 93005; 93306; 94640; 94760; 96361; 96374; J0696; J1650; J2020; J2543; J3480; J7030; J7626; P9612; 99285-25

== ENCOUNTER 2019-05-21 12:53 | Inpatient (IN) | payer MEDICARE, OTHER ==
[~2019-05-21] VITALS: Ht 152.4 cm; Wt 65.8 kg
[2019-05-21] VITALS (11 sets, daily range): BP systolic 90–141; BP diastolic 36–105
[~2019-05-21 12:53] MED LIST changes: +AMOX400S PEG; +LINE600T PEG; +NEOSTIGMINE METHYLSULFATE 5 MG/5 ML SYRINGE. ONE; +OSEL30CA PO; -PANT40TA3 PO; +PANT40TA77 PO; +ROCURONIUM 50 MG/5 ML VIAL. ONE
[2019-05-21] MEDS ORDERED: PROPOFOL 40 ML IV ONE (13:05)
[2019-05-21] MEDS ORDERED: IV RINGERS,LACTATED 1000ML 1,000 ML IV SCH (13:15)
--- NOTE | 2019-05-21 13:55 | PDOC4 ---
PROCEDURE Procedure EGD/attempted PEG replacement Indication: "leaking PEG" Meds: per anesthesia Findings: E--diffucult intubation due to some stenosis at CP and angulation. Esophagus otherwise normal. G--G-tube, otherwise normal. D--Normal bulb. --Old g-tube pushed into stomach and grasped with snare. On attempt to extract orally, the tube fractured and tube did not exit. On attempts to re-intubate, evident pharyngeal perforation and further endoscopy abandoned. --Placed balloon type g-tube into old stoma to maintain tract. --Intubated by anesthesia; will require admission. REC: Admit; discussed with Dr. Zepeda. No feedings at this time. Chest/abdominal films to locate old g-tube; suspect in stomach, but maybe in thoracic esophagus. AJAY SOLORZANO MD May 21, 2019 13:55
--- NOTE | 2019-05-21 14:00 | NUR ---
Adm note: Transfer from outpatient to ICU 112 after inadvertent pharyngeal perf. Temporary tub e placed to maintain peg tube opening. Clamped at this time. Vent dependent. Sedated per anesthesia. Propofol/fentanyl per Dr Issa vent control. Adan cath placed. Call to anesthesia ffor line placement. Continued on flow sheet.
[2019-05-21] MEDS ORDERED: IV NORMAL SALINE 1000ML BAG 1,000 ML IV SCH (14:39)
[2019-05-21] MEDS ORDERED: NALOXONE 0.4 MG/ML VIAL. IV PRN (14:45)
[2019-05-21] MEDS ORDERED: PROPOFOL 100 ML IV PRN (14:45)
[2019-05-21] MEDS ORDERED: fentaNYL PF VIAL 100 MCG/2 ML VIAL ONE (14:57)
--- NOTE | 2019-05-21 14:58 | CONS ---
DATE OF CONSULTATION: 05/21/2019 PULMONARY CONSULTATION ATTENDING PHYSICIAN: Srikanth Zepeda MD REASON FOR CONSULTATION: Respiratory failure, pharyngeal perforation. HISTORY OF PRESENT ILLNESS: The patient is an 83-year-old, who has history of stroke. She is bedbound. She has history of dysphagia. The patient was admitted as an outpatient for a G-tube replacement. The patient had difficult intubation due to some stenosis and angulation. The patient initially had EGD and esophagus otherwise was normal and G-tube otherwise was normal. The old G-tube on attempt to extract orally got fractured. On attempts to reintubate, pharyngeal perforation was observed by Dr. Hernandez and further endoscopy was abandoned. He then placed balloon type G-tube into the old stoma to maintain the tract. Currently, I have reviewed the chest x-ray. I do not see any obvious pneumomediastinum. There is some volume loss in the left base. The patient is intubated and sedated. Arterial blood gases has been ordered. I have been asked to see her for further evaluation. PAST MEDICAL HISTORY: Significant for history of stroke, history of bedbound. History of hypertension, hyperlipidemia, and dysphagia. PAST SURGICAL HISTORY: Has a feeding tube and right above knee amputation. ALLERGIES: None. MEDICATIONS: Reviewed as an outpatient. FAMILY HISTORY: Unremarkable. SOCIAL HISTORY: She is a longterm and is bedridden. REVIEW OF SYSTEMS: Unable to obtain. PHYSICAL EXAMINATION: GENERAL: She is intubated and sedated with propofol. VITAL SIGNS: Stable. T-max of 99. Pulse ox is 97%. HEENT: Sclerae nonicteric. NECK: With no crepitus. LUNGS: Diminished breath sounds. CARDIOVASCULAR: Regular rate and rhythm. ABDOMEN: Soft, obese. EXTREMITIES: With amputation on the right side. LABORATORY DATA: Have been ordered. Outpatient labs from February were available with a white cell count of 8.2. IMPRESSION: 1. Acute respiratory failure, status post pharyngeal perforation during EGD and attempts to reintubate. 2. Status post EGD. On attempt to extract the old G-tube orally, the tube fractured and probably partially in the esophagus. On attempt to reintubate, pharyngeal perforation was observed by Dr. Hernandez. As a result, the patient was eventually intubated. 3. History of prior stroke. 4. History of dysphagia. 5. No obvious pneumomediastinum on the chest x-ray. RECOMMENDATIONS: 1. Discussed with Dr. Hernandez and Anesthesia. We will continue with present assist control mode. 2. We will obtain CT neck and chest. 3. If it confirms pharyngeal perforation, then patient would need [facility] as there is no ENT expertise available at our facility. 4. Discussed with Dr. Zepeda. 5. Discussed with RN and RT. We will add bronchodilators. We will continue with sedation for now and follow ABGs and make necessary recommendations. Critical care time 37 minutes. JASMINE DIXON MD DR: OBEY/ria JOB#: [id number] / [id number] ESSIE
[2019-05-21] MEDS ORDERED: ONDANSETRON PF 4 MG/2 ML VIAL. IV PRN (15:00)
[2019-05-21] MEDS ORDERED: BISACODYL 10 MG SUPP.RECT. PR PRN (15:00)
[2019-05-21] MEDS ORDERED: fentaNYL PF VIAL 100 MCG/2 ML VIAL IV PRN (15:00)
--- NOTE | 2019-05-21 15:07 | PDOC2 ---
GI CONSULT Reason For Consult: pharyngeal perf HPI: HPI: 84 y/o female w/ h/o CVA, aphasia, left-sided weakness, and dysphagia w/ PEG tube sent to [facility] from [facility] for EGD/PEG replacement today for "leaking PEG." Procedure note as below - difficult intubation due to CP stenosis and angulation, then old G-tube fractured on attempt to extract orally. Concern for pharyngeal perforation when re-intubation attempted. Case d/w hospitalist, now admitted to ICU. From past encounters, h/o reflux esophagitis, hiatal hernia, and duodenal ulcer. Last colonoscopy in 2013 w/ sigmoid polyps and diverticulosis. Chart lists h/o C Diff (though always negative here). S/p cholecystectomy (cholelithiasis). "Borderline dilated" (but stable) pancreatic duct on past MRCP. PMH: PMH: from chart A Fib, CAD, HTN, HLD, CVA w/ aphasia, dysphagia, and left-sided weakness, dementia, GERD, hiatal hernia, duodenal ulcer, colon polyp, diverticulosis, anemia, hypothyroidism, DVT, lupus, C Diff, MRSA, UTIs, osteomyelitis, sacral decub cholecystectomy, IVC filter, right AKA, PEG placement/replacement FH: Family History: No pertinent hx Social History: Smoke: No ALCOHOL: none Drugs: None ROS: Unable to obtain. Vitals: Vitals: Vital Signs Date Time Temp Pulse Resp B/P (MAP) Pulse Ox O2 Delivery O2 Flow Rate FiO2 05/21/19 13:11 99.2 120 22 94 99.2 Allergies: Coded Allergies: I S O L A T I O N *CONTACT* (Verified Allergy, Unknown, 05/21/19) mrsa No Known Medication Allergies (Verified Allergy, Unknown, 05/21/19) Medications: Current Medications Medications (Trade) Dose Ordered Sig/Michelle Route PRN Reason Start Time Stop Time Status Last Admin Dose Admin Ringer's Solution 1,000 ml @ 100 mls/hr Q10H IV 05/21/19 13:15 05/22/19 13:14 05/21/19 13:16 Imaging: Imaging: EGD 05/21/19 for "leaking PEG" E--difficult intubation due to some stenosis at CP and angulation. Esophagus otherwise normal. G--G-tube, otherwise normal. D--Normal bulb. --Old g-tube pushed into stomach and grasped with snare. On attempt to extract orally, the tube fractured and tube did not exit. On attempts to re-intubate, evident pharyngeal perforation and further endoscopy abandoned. --Placed balloon type g-tube into old stoma to maintain tract. --Intubated by anesthesia; will require admission. REC: Admit; discussed with Dr. Zepeda. No feedings at this time. Chest/abdominal films to locate old g-tube; suspect in stomach, but maybe in thoracic esophagus. CXR 05/21/19 pending PE: GEN: intubated HEENT: atraumatic, no crepitus LUNGS: tachypneic HEART: tachycardic ABD/SKIN: soft, PEG tract maintained w/ balloon-type tube, surrounding skin w/ chronic irritation EXTREMITY: right AKA NEURO/PSYCH: sedated A/P: A/P: Pharyngeal perforation, fractured/retained G tube H/o stroke w/ aphasia and dysphagia GERD, h/o DU CRC screen, h/o colon polyp - last in 2013 Diverticulosis ?h/o C Diff S/p cholecystectomy -- Dr. Hernandez discussed w/ Dr. Issa - plans for CT neck and chest (which should also locate old tube) - await this. SYED SANDOVAL May 21, 2019 15:07
--- NOTE | 2019-05-21 15:09 | RAD ---
CHEST AP ONLY Clinical Indication: Intubated, post EGD, possible perforation Comparison: 02/11/2019 portable chest x-ray exam. Findings: Supine portable frontal view chest was obtained. The cardiomediastinal silhouette is normal. Maxillary interstitial thickening of the lung vo again noted. Prominent vasculature is borderline congested. Minimal left basilar patchy infiltrate or atelectasis is decreased compared to the prior exam. Small pleural effusions are present. No pneumothorax. Ankylosis of the glenohumeral joint bilaterally is noted at the inferior aspect. IMPRESSION: Improved pulmonary aeration with decreased left basilar infiltrate or scarring. Interval follow-up to assess resolution is recommended. Small pleural effusions. Electronically signed by: Stanford Gaspar MD (05/21/2019 3:06 PM) [facility]
--- NOTE | 2019-05-21 15:33 | PDOC1 ---
History and Physical Date of Admission Date of Admission DATE: 05/21/19 TIME: 15:02 Identification/Chief Complaint Chief Complaint Dislodged PEG tube, respiratory failure Source Source: Chart review History of Present Illness History of Present Illness Ms Adames is an 84yo F w/ PMHx Afib, HTN, HLD, CVA, dysphagia, alf SNF resident who was admitted as an outpatient for a G-tube replacement per GI in endoscopy suite today. The patient had difficult intubation initially due to some stenosis and angulation. The patient initially had EGD and esophagus otherwise was normal and G-tube otherwise was normal. The old G-tube on attempt to extract orally was ruptured and remainder not retrieved at this time due to attempts to reintubate, pharyng eal perforation was observed by Dr. Hernandez and further endoscopy was abandoned. A balloon g-tube was placed in the old PEG tract. Anesthesia was paged for intubation and rocuronium was utilized with propofol. She is intubated and sedated with propofol, is very active with this. Labs pending at this time. CXR reviewed with good ET placement, appears to have some small bilateral pleural effusions and left lower lobe haziness. HR in the 120s and SBP in 150s currently. Afebrile. Past Medical History Cardiovascular: AFIB, CAD, HTN, Hyperlipidemia CENTRAL NERVOUS SYSTEM: CVA, Dementia GI: Constipation, Other Heme/Onc: Anemia NOS Hepatobiliary: Cholelithiasis Musculoskeletal: Osteoarthritis, Other Rheumatologic: Other Renal/: Chronic renal insuff Endocrine: Hypothyroidism Past Surgical History Past Surgical History: Cholecystectomy, Other (Right BKA, PEG) Family History Family History: High Cholestrol, Stroke Social History Smoke: No ALCOHOL: none Drugs: None Current Medications Current Medications Current Medications Propofol 40 ml @ As Directed STK-MED ONCE IV ; Start 05/21/19 at 13:05; Stop 05/21/19 at 13:06; Status DC Ringer's Solution 1,000 ml @ 100 mls/hr Q10H IV Last administered on 05/21/19at 13:16; Start 05/21/19 at 13:15; Stop 05/22/19 at 13:14 Propofol 100 ml @ 0 mls/hr CONT PRN IV SEE I/O RECORD; Start 05/21/19 at 14:45 Fentanyl Citrate 30 ml @ 0 mls/hr CONT PRN PRN IV PER PROTOCOL; Start 05/21/19 at 14:45 Naloxone HCl (Narcan) 0.4 mg PRN Q2MIN PRN IV SEE INSTRUCTIONS; Start 05/21/19 at 14:45 Sodium Chloride 1,000 ml @ 25 mls/hr Q24H IV ; Start 05/21/19 at 14:39 Albuterol/ Ipratropium (Duoneb) 3 ml RTQID NEB ; Start 05/21/19 at 16:00 Fentanyl Citrate (Fentanyl 2ml Vial) 100 mcg STK-MED ONCE .ROUTE ; Start 05/21/19 at 14:57; Stop 05/21/19 at 14:58; Status DC Ondansetron HCl (Zofran) 4 mg PRN Q6HRS PRN IV NAUSEA/VOMITING; Start 05/21/19 at 15:00; Status UNV Bisacodyl (Dulcolax Supp) 10 mg PRN DAILY PRN [place] CONSTIPATION; Start 05/21/19 at 15:00; Status UNV Heparin Sodium (Porcine) (Heparin Sodium) 5,000 unit Q8HRS SQ ; Start 05/21/19 at 22:00; Status UNV Fentanyl Citrate 30 ml @ 0 mls/hr CONT PRN IV SEE PROTOCOL; Start 05/21/19 at 15:00; Status UNV Fentanyl Citrate (Fentanyl 2ml Vial) 25 mcg PRN Q1HR PRN IV SEE COMMENTS; Start 05/21/19 at 15:00; Status UNV Famotidine (Pepcid Vial) 20 mg BID IVP ; Start 05/21/19 at 21:00; Status UNV Active Scripts Active Tamiflu (Oseltamivir Phosphate) 30 Mg Capsule 30 Mg PO DAILY 2 Days Zyvox (Linezolid) 600 Mg Tablet 600 Mg PEG BID 4 Days Amox Tr-K Clv 400-57/5 Susp (Amoxicillin/Potassium Clav) 400 Mg/5 Ml Susp.recon 10 Ml PEG Q12HR 4 Days Artificial Tears (Polyvinyl Alcohol) 1 Drop Drops 1 Drop OU QID [Multivitamins,Therapeutic] 5 ML Liquid 5 Ml PEG DAILY Xalatan (Latanoprost) 1 Drop Drops 1 Drop OU HS Vitamin C (Ascorbic Acid) 500 Mg Tablet 500 Mg PEG DAILY Reported Nystatin 15 Gm Cream..g. 1 Kenisha TP BID Pulmicort (Budesonide) 0.25 Mg/2 Ml Ampul.neb 1 Vial NEB BID Famotidine 20 Mg Tablet 20 Mg PO HS Duoneb 0.5-3(2.5) Mg/3 Ml (Albuterol/Ipratropium) 3 Ml Ampul.neb 3 Ml NEB PRN QID PRN Probiotic (Lactobacillus Acidophilus) 1 Each Capsule 1 Each GT DAILY Lotrisone Cream (Clotrimazole/Betamethasone Dip) 15 Gm Cream..g. [address] B[address] (Sodium Chloride) 104 Ml [place] 104 Ml NS TID PRN Metoprolol Tartrate 25 Mg Tablet 25 Mg PEG BID Hydralazine Hcl 25 Mg Tablet 25 Mg PEG TID Tylenol (Acetaminophen) 325 Mg Tablet 1 Tab PO PRN Q6HRS PRN Amlodipine Besylate 5 Mg Tablet 5 Mg GT DAILY Allergies Allergies: Coded Allergies: I S O L A T I O N *CONTACT* (Verified Allergy, Unknown, 05/21/19) mrsa No Known Medication Allergies (Verified Allergy, Unknown, 05/21/19) ROS Review of System Unable to obtain due to sedation on ventilator Physical Exam Physical Exam GENERAL: She is intubated and sedated with propofol. VITAL SIGNS: Stable. T-max of 99. Pulse ox is 97%. HEENT: Sclerae nonicteric. NECK: With no crepitus. LUNGS: Diminished breath sounds. CARDIOVASCULAR: Regular rate and rhythm. ABDOMEN: Soft, obese. EXTREMITIES: With General: mild distress, Other (Sedated, agitated) HEENT: Atraumatic, PERRLA, EOMI, Mucous membr. moist/pink Lungs: Other (Ventilatory breat sounds) Heart: S1S2, RRR, no gallops, no murmurs Abdomen: Normal bowel sounds, Soft, No tenderness, No hepatosplenomegaly, No masses Rectal Exam: not examined Extremities: Other (amputation on the right lower extremity) Skin: No rashes, No breakdown, No significant lesion Neuro: Other (Gag and pupillary reflexes intact) Psych/Mental Status: Other (Sedated) Vitals Vitals Vital Signs Date Time Temp Pulse Resp B/P (MAP) Pulse Ox O2 Delivery O2 Flow Rate FiO2 05/21/19 13:11 99.2 120 22 94 99.2 VTE Prophylaxis Ordered VTE Prophylaxis Devices: Yes VTE Pharmacological Prophylaxi: Yes Assessment/Plan Assessment/Plan A/P: Acute respiratory failure - status post pharyngeal perforation during EGD and attempts to reintubate. Will need to maintain airway with the concern for pharyngeal perf. Pulmonology consulted for vent management. Sedation with propofol and fentanyl Pharyngeal perforation - No ENT available at our facility. Will stabilize in ICU and contact [facility] per her brother's wishes after CT neck is obtained Dysphagia - with PEG for replacement. Will consult GI to follow for eventual replacement and retrieval of fractured g-tube GERD - pepcid IV BID Afib - sinus currently. Will cont metoprolol through 2.5mg IV q6 hours H/o prior stroke - on ASA, statin, BB for afib HTN - holding meds while sedated HLD - Hold statin currently FEN - NPO PPX - Heparin, Pepcid IV FULL CODE per d/w pt's brother Kings, phone: [phone], who is medical DPOA DISPO - ICU for respiratory failure. Will f/u CT to further assess esophageal perforation, may need to have transfer to tertiary facility with ENT services, her brother has stated he prefers [facility]. 49 minutes CC time for initial ICU admission and vent management VESNA MAURICIO MD May 21, 2019 15:33
[2019-05-21] MEDS ORDERED: METOPROLOL TARTRATE 5 MG/5 ML VIAL. IVP SCH (16:00)
[2019-05-21] MEDS: IPRATRPIUM/ALBUTEROL 0.5/2.5MG 3 ML NEBU. NEB SCH ×2 (16:56→20:00)
--- NOTE | 2019-05-21 16:58 | RAD ---
Examination: CT NECK CHEST WO CONTRAST History: Pharyngeal perforation Comparison/Correlation: None Findings: Axial images of the neck and chest were obtained without contrast. Sagittal and coronal reformatted images were provided. Advanced atrophy is noted. Globes and optic nerves are unremarkable. Extra ocular muscles are grossly unremarkable. Minimal opacification of paranasal sinuses noted. Fluid level within the left sphenoid sinus is evident. Opacification of mastoid air cells bilaterally noted. Parotid and submandibular glands are normal. No enlarged cervical lymph nodes. Orotracheal tube terminates 2.7 cm from the maude. Soft tissue gas is noted bilaterally medial to the carotid and internal jugular vein from the thyroid cartilage level to the base of the neck. Soft tissue gas is noted extending to the right upper paratracheal region. Minimal medial right apical pneumothorax is present. Bibasilar costophrenic sulcus atelectasis is greater on the right. No suspicious pulmonary nodule or mass identified although evaluation may be limited in regions of atelectasis. Coronary arterial calcification is notable. G-tube is noted. Stool is noted within colon. Relatively high density within the colon which may represent oral contrast ingestion is evident. Cholecystectomy noted. Bony bridging of the neck of the scapula bilaterally with the proximal humerus is noted. Multilevel degenerative space narrowing of the cervical spine is evident. Impression: Bibasal atelectasis is present greater on the right. Soft tissue gas is noted in the prevertebral region at the oropharynx with extension to the base of the neck continuing into the upper thoracic level. Minimal right apical pneumothorax is present. Correlate with reported history of perforation. No loculated fluid collections On 05/21/2019 at 4:52 PM, results were discussed with the patient's nurse Lesley. PQRS Compliance Statement: One or more of the following individualized dose reduction techniques were utilized for this examination: 1. Automated exposure control 2. Adjustment of the mA and/or kV according to patient size 3. Use of iterative reconstruction technique Electronically signed by: Stanford Gaspar MD (05/21/2019 4:55 PM) [facility]
--- NOTE | 2019-05-21 16:59 | NUR ---
[address] of neck and chest. Call from radiology w report. Page into Dr Zepeda
[2019-05-21 17:19] LABS: BASE EXCESS ABG 1 mmol/L (-3-3); HCO3 ABG 23 mmol/L (21-28); PCO2 ABG 29 mmHg (35-46); PO2 ABG 261 mmHg (65-108); SAT O2 ABG 99 % (92-99)
[2019-05-21 17:20] LABS: FIO2 ABG 100
[2019-05-21] MEDS ORDERED: PIP/TAZO PER PHARMACY MC PRN (17:30)
[2019-05-21] MEDS ORDERED: PIPERACILLIN/TAZOBACTAM 3.375 GM in IV NORMAL SALINE 50ML 50 ML IV SCH (18:00)
[2019-05-21] MEDS ORDERED: PIPERACILLIN/TAZOBACTAM 2.25 GM in IV NORMAL SALINE 50ML 50 ML IV SCH (18:00)
[2019-05-21] MEDS ORDERED: ACETAMINOPHEN 650 MG SUPP.RECT. PR PRN (20:45)
[2019-05-21] MEDS: HEPARIN for SUB-Q USE 5,000 UNIT/ML VIAL. SQ SCH ×2 (20:59→22:00)
[2019-05-21] MEDS ORDERED: FAMOTIDINE 20 MG/2 ML VIAL IVP SCH (21:00)
--- NOTE | 2019-05-21 21:21 | NUR ---
Spoke with Dr. Zpeeda to notify of 101 F temperature. Received orders to draw CBC, CMP, INR, blood cultures STAT. Tylenol suppository 650 mg PRN for temp. PRN suppository given.
[2019-05-21 21:25] LABS: BASO % 0 % (0-3); EOS % 0 % (0-3); HEMATOCRIT 42.4 % (36.0-47.0); HEMOGLOBIN 13.3 g/dL (12.0-15.5); LYMPH # 1.5 x10^3/uL (1.0-4.8); LYMPH % 10 % (24-48); MEAN CORPUSCULAR HEMOGLOBIN 27 pg (25-35); MEAN CORPUSCULAR HGB CONC 31 g/dL (31-37); MEAN CORPUSCULAR VOLUME 87 fL (79-100); MONO % 7 % (0-9); NEUT # 13.1 x10^3uL (1.8-7.7); NEUT % 84 % (31-73); PLATELET COUNT 296 x10^3/uL (140-400); RED BLOOD COUNT 4.86 x10^6/uL (3.50-5.40); RED CELL DISTRIBUTION WIDTH 15.4 % (11.5-14.5); WHITE BLOOD COUNT 15.6 x10^3/uL (4.0-11.0)
[2019-05-21 21:35] LABS: PROTHROMBIN TIME PATIENT 14.4 SEC (11.7-14.0)
[2019-05-21 21:37] LABS: CREATININE 1.6 mg/dL (0.6-1.0); GFR 37.1; POTASSIUM 4.1 mmol/L (3.5-5.1)
[2019-05-21 21:43] LABS: ALBUMIN 2.9 g/dL (3.4-5.0); ALBUMIN/GLOBULIN RATIO 0.5 (1.0-1.7); TOTAL BILIRUBIN 0.7 mg/dL (0.2-1.0)
[2019-05-21] MEDS ORDERED: CLINDAMYCIN 600MG PREMIX 50 ML IV SCH (22:00)
[2019-05-21 22:16] LABS: % BANDS 11 % (0-9); % LYMPHS 17 % (24-48); % MONOS 6 % (0-10); % SEGS 66 % (35-66); PLT ESTIMATE ADEQUATE (ADEQUATE)
--- NOTE | 2019-05-21 22:47 | NUR ---
AMS arrived at 2030 to transfer pt to [facility]. Pt transferred x5 to [facility]. Pt placed on AMS ventilator on current settings. ICU pump with 3 attachments went with AMS d/t pt being on propofol for sedation. Report called to [facility] by previous nurse. This RN called and reported to Cherelle, insulation cupola charger, that pt was on the way. Pt not able to be transported with [facility]ent[facility]. Pts temperature prior to leaving was 99.7F. Pt labs printed and sent with other paperwork. Paperwork given to AMS along with pt belongings: ej.
== END 2019-05-21 22:40 | disposition short-term general hospital (02) | DRG 919 ==
LOC: ENDOS 12:53 → 1 WEST ICU 14:00
PROVIDERS: ADMIT Internal Medicine; ATTEND Internal Medicine
PROC: 0BH17EZ Insertion of Endotracheal Airway into Trachea, Via Natural or Artificial Opening (ICD-10-PCS; 2019-05-21)
PROC: 0DC68ZZ Extirpation of Matter from Stomach, Via Natural or Artificial Opening Endoscopic (ICD-10-PCS; 2019-05-21)
PROC: 5A1935Z Respiratory Ventilation, Less than 24 Consecutive Hours (ICD-10-PCS; principal; 2019-05-21 14:00)
PROC: 0DH63UZ Insertion of Feeding Device into Stomach, Percutaneous Approach (ICD-10-PCS; 2019-05-21 14:00)
DX: K91.71 Accidental puncture and laceration of a digestive system organ or structure during a digestive system procedure (principal); J96.00 Acute respiratory failure, unspecified whether with hypoxia or hypercapnia; K94.23 Gastrostomy malfunction; K22.2 Esophageal obstruction; J39.2 Other diseases of pharynx; D64.9 Anemia, unspecified; E03.9 Hypothyroidism, unspecified; E78.5 Hyperlipidemia, unspecified; F03.90 Unspecified dementia, unspecified severity, without behavioral disturbance, psychotic disturbance, mood disturbance, and anxiety; I12.9 Hypertensive chronic kidney disease with stage 1 through stage 4 chronic kidney disease, or unspecified chronic kidney disease; I25.10 Atherosclerotic heart disease of native coronary artery without angina pectoris; M19.90 Unspecified osteoarthritis, unspecified site; I48.91 Unspecified atrial fibrillation; K21.9 Gastro-esophageal reflux disease without esophagitis; K57.90 Diverticulosis of intestine, part unspecified, without perforation or abscess without bleeding; N18.9 Chronic kidney disease, unspecified; Z74.01 Bed confinement status; Z82.3 Family history of stroke; Z86.73 Personal history of transient ischemic attack (TIA), and cerebral infarction without residual deficits; Z89.511 Acquired absence of right leg below knee; Z89.611 Acquired absence of right leg above knee; Z90.49 Acquired absence of other specified parts of digestive tract
CPT/HCPCS: 36415; 36600; 43246; 43247; 70490; 71045; 71250; 80053; 82805; 85007; 85025; 85610; 87040; 87641; 94002; 94640; A4314; J1644; J2543; J2704; J2710; J3010; J3490; J7030; J7620

== ENCOUNTER 2019-11-11 08:47 | Emergency (ER) | payer MEDICARE, OTHER ==
[~2019-11-11] VITALS: Ht 152.4 cm; Wt 65.8 kg
[~2019-11-11 08:47] MED LIST changes: -LINE600T PEG; -LINE600T PO; +LINE600T12 PEG; +LINE600T12 PO; -NEOSTIGMINE METHYLSULFATE 5 MG/5 ML SYRINGE. ONE; +POTA20LI2 PEG; -POTA20LI27 PEG; -ROCURONIUM 50 MG/5 ML VIAL. ONE
--- NOTE | 2019-11-11 09:32 | PHYS DOC ---
Past Medical History Past Medical History: Arthritis, Constipation, CVA, Hypertension, Other Additional Past Medical Histor: Hemiplegia, aspiration PNA, SLE, osteomyelitis, SOB, open wounds ([facility],NELSY Devine GEROPSYCHOLOGIST) Past Surgical History: Other Additional Past Surgical Histo: gastrostomy, Other history unknown. AKA R leg ([facility],NELSY Devine GEROPSYCHOLOGIST) Alcohol Use: None Drug Use: None ([facility],NELSY GEROPSYCHOLOGIST) Adult General Chief Complaint Chief Complaint: GTUBE REPLACEMENT/MALFUNCTION HPI HPI Patient is a 84 year old female who presents with running from the detention that she had pulled out her G-tube this morning. ([facility],NELSY M GEROPSYCHOLOGIST) Review of Systems Review of Systems GI: G tube displacement. Denies abdominal pain, nausea, vomiting, bloody stools or diarrhea [] All other systems were reviewed and found to be within normal limits, except as documented in this note. ([facility],NELSY Devine GEROPSYCHOLOGIST) Allergies Allergies Allergies Coded Allergies Type Severity Reaction Last Updated Verified I S O L A T I O N *CONTACT* Allergy Unknown 05/21/19 Yes No Known Medication Allergies Allergy Unknown 05/21/19 Yes (AJAY BRASHER DO) Physical Exam Physical Exam Constitutional: Well developed, well nourished, no acute distress, non-toxic appearance. [] HENT: Normocephalic, atraumatic, bilateral external ears normal, oropharynx moist, no oral exudates, nose normal. [] Eyes: PERRLA, EOMI, conjunctiva normal, no discharge. [] Neck: Normal range of motion, no tenderness, supple, no stridor. [] Cardiovascular:Heart rate regular rhythm, no murmur [] Lungs & Thorax: Bilateral breath sounds clear to auscultation [] Abdomen: Bowel sounds normal, soft, no tenderness, no masses, no pulsatile masses. G tube insertion site. [] Skin: Reddened circular skin break down around the g tube insertion site. No ulceration. Warm, dry, no erythema, no rash. [] Back: No tenderness, no CVA tenderness. [] Extremities: No tenderness, no cyanosis, no clubbing, ROM intact, no edema. [] Neurologic: Alert and oriented X 3, normal motor function, normal sensory function, no focal deficits noted. [] Psychologic: Affect normal, judgement normal, mood normal. 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 There is moisture and leakage up from the G- tube insertion site. There is a 20 Surinamese with a 6 mL balloon. The balloon is not inflated to 6 mL is only looks to be inflated with 2 ml of saline. Patient is alert and sitting up but she is disoriented and does not speak. She will open her mouth at times to act like she strained and 3. Vital signs within normal limits. She has a history of hemiplegia, gastrostomy, aspiration pneumonia, hypertension, CVA,wounds. Patient has a circular reddened skin breakdown around the G-tube insertion site. I have had Dr Brasher examine this patient with me and he gave me instructions on replacing the G tube as I have stated below. A 20 Surinamese with a 20 mL balloon is reinserted after being lubricated. The area was first cleaned with chlorhexidine before insertion. Barrier cream was placed over the skin breakdown area around the insertion site. Catheter was placed without complication. Dr Brasher examined the Tube insertion as being placed. (NELSY CANELA APRN) Dragon Disclaimer Dragon Disclaimer This electronic medical record was generated, in whole or in part, using a voice recognition dictation system. (NELSY CANELA APRN) Departure Departure Impression: Primary Impression: Gastrostomy tube skin breakdown Additional Impression: Gastrostomy tube in place Disposition: 01 HOME, SELF-CARE Condition: STABLE Referrals: KENTRELL LAWRENCE (PCP) Patient Instructions: Gastric Tube Replacement Additional Instructions: Follow up with primary care if needed. Attending Signature Attending Signature I have personally interviewed and examined the patient. All charts, labs, and imaging studies were reviewed. I agree with the PA/TEST INSPECTION ENGINEER's findings, exam, and plan. (AJAY BRASHER DO) Problem Qualifiers NELSY CANELA APRN Nov 11, 2019 09:32 AJAY BRASHER DO Nov 12, 2019 07:49
[2019-11-11 10:50] VITALS: BP 142/78
== END 2019-11-11 11:40 | disposition home or self-care (01) ==
LOC: ER 08:47
DX: K94.29 Other complications of gastrostomy (principal); M19.90 Unspecified osteoarthritis, unspecified site; I10 Essential (primary) hypertension; Z86.73 Personal history of transient ischemic attack (TIA), and cerebral infarction without residual deficits; Z91.041 Radiographic dye allergy status
CPT/HCPCS: 43762; 99285